=== PATIENT | male | born 1940 | race Caucasian/White ===

== ENCOUNTER 2016-07-22 12:04 | Day surgery (SDC) | payer MEDICARE ==
[2016-07-19 09:51] VITALS: BMI 23.5
[~2016-07-22 12:04] MED LIST: DEXAMETHASONE SOD PHOSPHATE 10 MG/ML 1 ML VIAL IV ONE; HYDROmorphone 1 MG/ML 1 ML SYRINGE IVP PRN; LACTATED RINGERS 1,000 ML IV SCH; LIDOCAINE 1% 20 ML VIAL (10MG/ML) FOR IV START INTRADERMA PRN; MIDAZOLAM 2 MG/2 ML VIAL IV PRN; ONDANSETRON 4 MG/2 ML VIAL IVP ONE; ceFAZolin 2 GM in SODIUM CHLORIDE 0.9% 100 ML IVPB ONE
[2016-07-22] MEDS ORDERED: ePHEDrine 50 MG/ML 1 ML AMP ONE (14:55)
[2016-07-22] MEDS ORDERED: LIDOCAINE 1% INJ 10MG/ML (20 ML MDV) ONE (14:55)
[2016-07-22] MEDS ORDERED: fentaNYL (PF) 50 MCG/ML 2 ML AMP ONE (14:55)
[2016-07-22] MEDS ORDERED: PROPOFOL 10 MG/ML 20 ML VIAL IV ONE (14:55)
[2016-07-22] MEDS ORDERED: MIDAZOLAM 2 MG/2 ML VIAL ONE (14:55)
--- NOTE | 2016-07-22 15:50 | XR ---
Fluoroscopy History: R wrist Fx internal fixation R wrist, 10sec fl time
[2016-07-22 15:59] VITALS: TEMP 97.8
[2016-07-22] MEDS ORDERED: HYDROmorphone 1 MG/ML 1 ML SYRINGE IVP ONE (16:10)
[2016-07-22 16:43] VITALS: RESP 16
[2016-07-22] MEDS ORDERED: HYDROcodone/APAP 5-325MG 1 EACH TAB PO ONE (17:09)
[2016-07-22 17:14] VITALS: PULSE 88
[2016-07-22 17:22] VITALS: BP 148/93
--- NOTE | 2016-07-22 17:59 | P.OP ---
Date of Procedure: 07/22/16 Procedure(s) Performed: 1. Right distal radius fracture closed reduction and percutaneous pinning 2. Short arm splint placement ANESTHESIA: paper carrier: Jamila Sweeney PA-C (assistance with: Patient positioning, reduction, fixation, splint placement) COMPLICATIONS: None ESTIMATED BLOOD LOSS: Less than 5 mL. DISPOSITION: To post-anesthesia care unit INDICATIONS: Mr. Lundy is a 76-year-old male who fell a couple weeks ago and sustained a displaced fracture of the distal radius. The fracture was initially reduced with good alignment, however has shifted out of place over the past week. We have discussed leaving this fracture alone and letting it heal with residual deformity which would probably be acceptable in terms of function, but considering the amount of dorsal tilt I feel that closed reduction percutaneous pinning would the optimal treatment for this situation. The patient wishes to proceed with surgery. I discussed the steps of the surgery as well as potential risks and complications as being inclusive of, but not limited to: Bleeding, infection, scarring, discomfort, blood vessel and/or nerve damage, need for further surgery, deformity, stiffness, tendon injury, pin site infection, osteomyelitis, loss of limb or life, and other risks. The patient is aware these risks and wishes to proceed with surgery. The consent form has been signed. PROCEDURE: After appropriate consent was obtained, the patient was taken to the operating room placed in the supine position. Anesthesia was initiated, and after confirmation of adequate anesthesia, the patient was carefully positioned. Care was taken to make sure that all pressure points were adequately padded. Prepping and draping were completed in the usual aseptic fashion using ChloraPrep. Timeout was called, confirming patient identity, side , procedure, and administration of antibiotics. The patient's fracture was reduced while being held by an him assistant. This was performed under C-arm guidance. Once an acceptable reduction had been obtained , 0.062 inch K wires were deployed from the distal fragment into the proximal fragment under C-arm guidance. 3 such pins were used: one in the radial styloid , one in the sigmoid notch fragment, and the last in the central dorsal rim of the distal radius. All 3 pins had far cortical purchase. Final C-arm images were taken and saved, showing satisfactory realignment of the distal radius fracture. Pins were bent and trimmed. Pin protectors were applied. A nonadherent dressing was applied over the pin sites and a well-padded well molded volar splint with the wrist in approximately 15 of flexion was applied. Patient tolerated the procedure well and taken to recovery room in stable condition. Counts were correct.
== END 2016-07-22 17:50 | disposition home or self-care (01) ==
LOC: OR 12:04
PROVIDERS: ATTEND Orthopaedic Surgery
DX: S52.571A Other intraarticular fracture of lower end of right radius, initial encounter for closed fracture (principal); W17.89XA Other fall from one level to another, initial encounter; Y93.89 Activity, other specified; S52.611D Displaced fracture of right ulna styloid process, subsequent encounter for closed fracture with routine healing; W17.89XD Other fall from one level to another, subsequent encounter; E78.5 Hyperlipidemia, unspecified; N40.0 Benign prostatic hyperplasia without lower urinary tract symptoms; Z79.891 Long term (current) use of opiate analgesic; Z79.899 Other long term (current) drug therapy; Z87.891 Personal history of nicotine dependence
CPT/HCPCS: 73100; 25606; C1713; J2250; J1100; J0690; J2405; J2001; J3010; J1170; J2704

== ENCOUNTER → 2017-03-31 | Outpatient (CLI) | payer MEDICARE ==
--- NOTE | 2017-03-31 09:27 | US ---
EXAMINATION TYPE: US renals and bladder DATE OF EXAM: 03/31/2017 COMPARISON: NONE CLINICAL HISTORY: R31.9 hematuria. Pt states microscopic hematuria EXAM MEASUREMENTS: Right Kidney: 10.1 x 5.1 x 5.1 cm Left Kidney: 9.7 x 5.2 x 4.6 cm Right Kidney: Cyst mid/medial= 1.0 x 0.9 x 1.1 cm/ No evidence of hydro Left Kidney: Appeared wnl Bladder: wnl Bilateral Jets seen: No There is no evidence for hydronephrosis at this point in time. No nephrolithiasis is seen. No quincy s are identified. The urinary bladder is anechoic. IMPRESSION: 1. No sonographic evidence of nephrolithiasis or hydronephrosis. 2. Right midpole 1.0 cm cyst.
--- NOTE | 2017-03-31 10:07 | US ---
EXAMINATION TYPE: US prostate transrectal DATE OF EXAM: 03/31/2017 COMPARISON: NONE CLINICAL HISTORY: R31.9 hematuria. Pt states microscopic hematuria, otherwise no other complaints at this time This examination was performed using the transrectal probe. EXAM MEASUREMENTS: Gland Size: 5.1 x 4.3 x 6.1 cm Volume: 69cc Predicted PSA: 8.3 Actual PSA (if available):Not available, unable to speak to office at time of exam Prostate enlarged/ Some calcifications within periphery at mid/right, otherwise no lesion appreciat ed within periphery at this time IMPRESSION: Heterogenous and enlarged prostate gland (volume of 69 cc) containing central zone and p eripheral zone calcifications. No discrete nodule identified.
== END | disposition home or self-care (01) ==
LOC: RADUSMAIN 08:05
PROVIDERS: ATTEND Internal Medicine
DX: N40.0 Benign prostatic hyperplasia without lower urinary tract symptoms (principal); N28.1 Cyst of kidney, acquired; N42.89 Other specified disorders of prostate
CPT/HCPCS: 76770; 76872

== ENCOUNTER 2017-04-07 07:30 | Inpatient (IN) | payer MEDICARE ==
[2017-03-28 10:01] VITALS: BMI 23.1
--- NOTE | 2017-04-06 14:52 | HP ---
HISTORY AND PHYSICAL REASON FOR ADMISSION: Surgery is scheduled for 04/07/2017 HISTORY OF PRESENT ILLNESS: Vinay Young is a 76-year-old patient seen with symptomatic left knee osteoarthritis. After treatment options were discussed, he elected to proceed with left total knee arthroplasty. Consent regarding the procedure was obtained. Medical clearance was provided by Dr. Nevarez. PAST MEDICAL HISTORY: Osteoarthritis, benign prostatic hypertrophy. PAST SURGICAL HISTORY: Right total knee arthroplasty. MEDICATIONS: Flomax. ALLERGIES: None reported. SOCIAL HISTORY: Patient denies current tobacco use. PHYSICAL EXAMINATION: Evaluation of the left knee range of motion is -2/3 to 120 degrees. Tenderness along the medial joint line. Positive medial Nubia's. Crepitus medial patellofemoral compartments with range of motion. Pain with patellofemoral compression. Ligaments stable. Hip rotation without pain. Distal neurovascular exam intact. RADIOGRAPHS: Left knee radiographs reveal severe medial and moderate patellofemoral compartment osteoarthritis. IMPRESSION: 1. Left knee osteoarthritis. 2. Benign prostatic hypertrophy. PLAN: Left total knee arthroplasty. Surgery scheduled for 04/07/2017. MMODL / IJN: [id number] /
[~2017-04-07 07:30] MED LIST changes: +ACETAMINOPHEN TAB 500 MG TAB PO ONE; +HYDROmorphone 0.5 MG/0.5 ML SYRINGE IVP PRN; -HYDROmorphone 1 MG/ML 1 ML SYRINGE IVP PRN; -LACTATED RINGERS 1,000 ML IV SCH; -LIDOCAINE 1% 20 ML VIAL (10MG/ML) FOR IV START INTRADERMA PRN; +MELOXICAM 7.5 MG TAB PO ONE; +TRANEXAMIC ACID 1,000 MG in SODIUM CHLORIDE 0.9% 50 ML IVPB ONE; -ceFAZolin 2 GM in SODIUM CHLORIDE 0.9% 100 ML IVPB ONE; +ceFAZolin IN SWFI 2 GM/20 ML SYRINGE IVP ONE
[2017-04-07] MEDS ORDERED: ROPIVACAINE 246.25 MG, EPINEPHrine 0.5 MG, KETOROLAC 30 MG, cloNIDine HCL/PF 80 MCG, WA... MISCELLANE ONE ×5 (09:25)
[2017-04-07] MEDS: LACTATED RINGERS 1,000 ML IV SCH (09:33)
[2017-04-07] MEDS ORDERED: SODIUM CHLORIDE 0.9% 100 ML BAG ONE (10:07)
[2017-04-07] MEDS ORDERED: PROPOFOL 10 MG/ML 20 ML VIAL IV ONE ×2 (10:07)
[2017-04-07] MEDS ORDERED: ePHEDrine SULFATE/0.9% NACL/PF 50 MG/5 ML SYRINGE IV ONE (10:07)
[2017-04-07] MEDS ORDERED: diphenhydrAMINE 50 MG/ML 1 ML VIAL ONE (10:07)
[2017-04-07] MEDS ORDERED: MIDAZOLAM 2 MG/2 ML VIAL ONE (10:07)
[2017-04-07] MEDS ORDERED: ceFAZolin 3,000 MG in SODIUM CHLORIDE 0.9% IRRIGATIO 3,000 ML IRRIGATION ONE (10:31)
[2017-04-07] MEDS ORDERED: LACTATED RINGERS 1,000 ML IV ONE (11:53)
[2017-04-07] MEDS ORDERED: HYDROmorphone 0.5 MG/0.5 ML SYRINGE IVP PRN ×3 (11:56)
[2017-04-07] MEDS ORDERED: hydrOXYzine PAMOATE 25 MG CAP PO PRN (11:56)
[2017-04-07] MEDS ORDERED: NALOXONE 0.4 MG/ML 1 ML VIAL IV PRN (11:56)
[2017-04-07] MEDS ORDERED: ONDANSETRON 4 MG/2 ML VIAL IVP PRN (11:56)
[2017-04-07] MEDS ORDERED: HYDROcodone/APAP 7.5-325MG 1 EACH TAB PO PRN ×2 (11:56)
--- NOTE | 2017-04-07 11:56 | P.OP ---
Date of Procedure: 04/07/17 Preoperative Diagnosis: Left knee osteoarthritis Postoperative Diagnosis: Left knee osteoarthritis Procedure(s) Performed: Left total knee arthroplasty Implants: 1. Asim persona size 9 left cruciate retaining cemented femur 2. Asim persona size left cemented tibia 3. Asim persona 13 mm medial congruent polyethylene tibial insert 4. Asim persona 38 mm all polyethylene cemented patella Anesthesia: regional (Adductor canal catheter), local, spinal Surgeon: Levy Dia Lining Vamper #1: Chris Bautista Estimated Blood Loss (ml): 50 Pathology: other ([place]) Condition: stable Disposition: PACU Indications for Procedure: 76-year-old patient seen with symptomatic left knee osteoarthritis. After treatment options were discussed, he elected to proceed with total knee arthroplasty. Operative Findings: See description of procedure Description of Procedure: Patient was taken to the operative suite after having an adductor canal catheter placed by the department of anesthesia. Patient underwent a final anesthetic by the department of anesthesia. Patient was given preoperative IV intake antibiotics and TXA. A well-padded tourniquet was placed about the left lower extremity. The lower extremity was then prepped and draped in the normal sterile orthopedic fashion. The extremity was elevated, a tourniquet was insufflated to 350. A standard anterior incision was made sharply through skin. Dissection was taken down through the subcutaneous soft tissues down to the extensor mechanism. A medial arthrotomy was performed, patella was everted and knee was flexed. There was advanced osteoarthritis noted. A proximal tibial cutting guide was positioned. Proximal tibial cut was made. A distal intramedullary femoral cutting guide was positioned, distal femoral cut made. We placed the appropriate sizing guide and selected the appropriate size. A distal 4-in-1 femoral cutting block was positioned, distal femoral cuts were made. We now placed a trial femoral component into position, along with an appropriate size tibial tray and insert. We now took the knee through range of motion and had full extension good flexion and good overall soft tissue balance noted. The patella was everted and a flush cut made with patellar quad tendon. We templated the patella, appropriate drill holes were made. An appropriate trial patella was positioned, knee was taken through full range of motion with the patella tracking very nicely. The trial patella was removed. Drill holes were made through the femoral component. All trial components were removed after marking off the appropriate rotation of the tibia. Retractors were now positioned along the proximal tibia. An appropriate keel punch was made with the appropriate size tibial guide. At this point appropriate size implants were chosen and opened. The joint was irrigated copiously with pulse lavage mechanical irrigation. The posterior capsule was infiltrated with local analgesic. We mixed antibiotic methylmethacrylate. Once the methyl methacrylate was ready, the tibial component was cemented into place removing any excess methylmethacrylate. The femoral component was cemented into place removing the removing any excess methylmethacrylate. We then inserted the appropriate size polyethylene tibial insert. We made sure that it was locked into position. We took the knee into full extension, and then back in a flexion making sure we had removed any excess methylmethacrylate. The patellar component was then cemented down and secured with clamp. Excess methylmethacrylate removed. We kept the knee in full extension, patellar clamp in position until methylmethacrylate had hardened. Once it had hardened the patellar clamp was removed. The knee was taken through full range of motion. The patella tracked nicely. There was good soft tissue balancing. The tourniquet was now released. Additional hemostasis was achieved via electrocautery. A second gram of TXA was given. The superficial soft tissues were infiltrated with local analgesic. The wound was irrigated with pulse lavage mechanical irrigation. The extensor mechanism was repaired with Vicryl. We checked the repair with range of motion and it was stable. The subcutaneous soft tissues were repaired with Vicryl in layers. The skin was approximated with pernio/Dermabond. Sterile dressings were applied followed by loose web roll and Romain bandage. The patient was transferred to a bed, and taken to recovery in stable and satisfactory condition. Rg PARKINSON assisted with the procedure.
--- NOTE | 2017-04-07 12:32 | XR ---
EXAMINATION TYPE: XR knee limited LT DATE OF EXAM: 04/07/2017 COMPARISON: NONE HISTORY: 76-year-old male evaluation for postoperative abnormality and alignment TECHNIQUE: 2 views FINDINGS: Images show placement of left total knee arthroplasty. Both distal femoral and proximal tibial compon ents of the prosthesis appear well seated without periprosthetic fracture. Anterior soft tissue swell ing, soft tissue air as well as intra-articular air related to recent operation. Alignment is grossly anatomic. IMPRESSION: Uncomplicated postoperative appearance left total knee arthroplasty.
[2017-04-07] MEDS ORDERED: ROPIVACAINE 1,100 MG, SODIUM CHLORIDE 0.9% 330 ML MISCELLANE PRN ×2 (12:41)
[2017-04-07] MEDS: traMADol 50 MG TAB PO SCH ×3 (12:44→21:59)
[2017-04-07] MEDS: ceFAZolin IN SWFI 2 GM/20 ML SYRINGE IVP SCH (17:37)
[2017-04-07] MEDS: SODIUM CHLORIDE 0.9% 1,000 ML IV SCH (17:42)
--- NOTE | 2017-04-07 20:11 | P.ONQ ---
Anesthesiology Proc Note - PNB - Peripheral Nerve Block Performed Left Adductor Canal Infusion Time Out Performed: Yes Procedure Start Time: 09:37 Procedure Stop Time: :52 Indication: Acute Post-Operative Pain, Requested by physician Sedation Type: Sedate with meaningful contact maintained Preparation: Sterile Prep Position: Supine Catheter: Indwelling Needle Types: On-Q Needle Size: 100mm (4") Needle Gauge: 20 Technique: Ultrasound Injectate: 0.5% Ropivacaine (see comment for volume) (ropi.5% 20cc) Blood Aspirated: No Pain Paresthesia on Injection Noted: No Resistance on Injection: Normal Events: Uneventful and Well Tolerated
[2017-04-07] MEDS: SENNOSIDES-DOCUSATE SODIUM 1 EACH TAB PO SCH (22:00)
[2017-04-07] MEDS: TAMSULOSIN 0.4 MG CAP.ER.24H PO SCH (22:00)
--- NOTE | 2017-04-07 22:38 | P.CONS ---
History of Present Illness - Reason for Consult Consult date: 04/07/17 Medical management and postoperative care - Chief Complaint Left total knee arthroplasty - History of Present Illness Patient is a 76-year-old pleasant male with a known history of GERD, osteoarthritis and BPH was admitted to the hospital for elective left total knee arthroplasty. Patient tolerated the procedure well. Currently pain is controlled with pain medications. Patient denied any complaints of chest pain or shortness of breath. No nausea vomiting or abdominal pain. No headache or dizziness or lightheadedness. Patient does take Flomax for BPH. Otherwise patient denied any new complaints. Review of Systems Constitutional: Patient denies any fever or chills . No generalized weakness or weight loss. Abdomen: Patient denied nausea vomiting and diarrhea and abdominal pain. Cardiovascular: Patient denies any chest pain or short of breath no palpitations. Respiratory: patient denied any cough is from production. No shortness of breath Neurologic: Patient denied any numbness or tingling headache. Musculoskeletal: Patient denies any complaints of joint swelling or deformity. Skin: Negative Psychiatric: Negative Endocrine: No heat or cold intolerance. No recent weight gain. Genitourinary: No dysuria or hematuria. All other 14 point ROS negative except the above Past Medical History Past Medical History: GERD/Reflux, Osteoarthritis (OA), Prostate Disorder Additional Past Medical History / Comment(s): Enlarged Prostate, "BLOOD IN THE URINE" History of Any Multi-Drug Resistant Organisms: None Reported Past Surgical History: Joint Replacement Additional Past Surgical History / Comment(s): Right knee replacement, esophageal ulcer surgery. Past Anesthesia/Blood Transfusion Reactions: No Reported Reaction Smoking Status: Former smoker - Past Family History Mother Family Medical History: Cancer Father Family Medical History: Cancer Additional Family Medical History / Comment(s): LUNG CANCER Brother(s) Family Medical History: Cancer Additional Family Medical History / Comment(s): LUNG CANCER Medications and Allergies Home Medications Medication Instructions Recorded Confirmed Type Tamsulosin HCl [Flomax] 0.4 mg PO HS 07/19/16 04/07/17 History Allergies Allergy/AdvReac Type Severity Reaction Status Date / Time No Known Allergies Allergy Verified 04/07/17 12:10 Physical Exam Vitals: Vital Signs Temp Pulse Pulse Resp BP BP Pulse Ox 04/07/17 12:22 72 16 135/67 100 04/07/17 12:07 97.1 F L 68 18 140/76 99 04/07/17 09:55 63 18 128/70 99 04/07/17 09:18 98.7 F 70 18 138/83 99 Intake and Output 04/06/17 04/07/17 04/07/17 22:59 06:59 14:59 Intake Total 1051 Output Total 50 Balance 1001 Intake: IV 1051 Output: Estimated Blood Loss 50 PHYSICAL EXAMINATION: Patient is lying in the bed comfortably, no acute distress, awake alert and oriented.. HEENT: Normocephalic. Neck is supple. Pupils reactive. Nostrils clear. Oral cavity is moist. Ears reveal no drainage. Neck reveals no JVD, carotid bruits, or thyromegaly. CHEST EXAMINATION: Trachea is central. Symmetrical expansion. Lung kurtz clear to auscultation and percussion. CARDIAC: Normal S1, S2 with no gallops. No murmurs ABDOMEN: Soft. Bowel sounds normal. No organomegaly. No abdominal bruits. Extremities: reveal no edema. No clubbing or cyanosis. Left knee surgical site bandaged. No leg swelling. Pulses palpable. Neurologically awake, alert, oriented x3 with well-coordinated movements. No focal deficits noted Skin: No rash or skin lesions. Psychiatric: Coperative. Nonsuicidal Musculoskeletal: No joint swelling or deformity. Normal range of motion. Assessment and Plan Assessment: Osteoarthritis status post left total knee arthroplasty on 04/07/2017 Benign prostatic hypertrophy GERD Osteoarthritis of multiple joints DVT prophylaxis Plan: Patient will be continued on pain management and bowel regimen. DVT prophylaxis. PT OT. Follow up H&H. Continue with Flomax and follow closely further recommendations based on the clinical course. Thank you for your consult. will continue to follow.
[2017-04-08] MEDS: ceFAZolin IN SWFI 2 GM/20 ML SYRINGE IVP SCH (01:14)
[2017-04-08 06:34] LABS: Basophils % (A) 0 %; Eosinophils # (A) 0.1 k/uL (0-0.7); Eosinophils % (A) 1 %; HCT 38.9 % (39.0-53.0); HGB 13.3 gm/dL (13.0-17.5); Lymphocytes # (A) 0.9 k/uL (1.0-4.8); Lymphocytes % (A) 9 %; MCH 29.4 pg (25.0-35.0); MCHC 34.2 g/dL (31.0-37.0); MCV 85.9 fL (80.0-100.0); Mean Platelet Volume 7.7; Monocytes # (A) 0.8 k/uL (0-1.0); Monocytes % (A) 8 %; Neutrophils # (A) 7.9 k/uL (1.3-7.7); Neutrophils % (A) 81 %; Platelet Count 181 k/uL (150-450); RBC 4.53 m/uL (4.30-5.90); RDW 13.4 % (11.5-15.5); WBC 9.8 k/uL (3.8-10.6)
--- NOTE | 2017-04-08 08:26 | P.PN ---
Progress Note - Text 04/08 648am 76-year-old male is status post total knee replacement by Dr. Dia. Patient seen and evaluated for pain control this morning. Patient has a On-Q pump for pain control, solution running at 8 mL an hour with a VAS of 4. Plan to continue On-Q pump infusion
[2017-04-08] MEDS: ENOXAPARIN 30 MG/0.3 ML SYRINGE SQ SCH ×2 (10:21→20:40)
[2017-04-08] MEDS: FAMOTIDINE 20 MG TAB PO SCH (10:22)
[2017-04-08] MEDS: MELOXICAM 7.5 MG TAB PO SCH (10:22)
--- NOTE | 2017-04-08 11:41 | P.PN ---
Subjective Progress Note Date: 04/08/17 Principal diagnosis: Status post left total knee arthroplasty Patient seen today resting in his hospital bed, he appears comfortable. He did have an episode of hypotension was brought on randomly, this has improved. She' s ambulated with therapy. He denies any chest pain, shortness of breath, fever chills. Objective - Vital Signs Vital signs: Vital Signs Temp 98.9 F 04/08/17 08:00 Pulse 60 04/08/17 08:10 Resp 16 04/08/17 08:00 BP 132/66 04/08/17 08:10 Pulse Ox 98 04/08/17 08:00 Intake & Output 04/07/17 04/08/17 04/08/17 18:59 06:59 18:59 Intake Total 1941 1880 240 Output Total 650 480 Balance 1291 1400 240 Weight 68.039 kg Intake: IV 1101 Intake, IV Titration 800 Amount Sodium Chloride 0.9% 1, 800 000 ml @ 50 mls/hr IV . Q20H [facility] Rx#:[id number] Oral 840 1080 240 Output: Urine 600 480 Straight 600 Estimated Blood Loss 50 Other: Voiding Method Toilet Urinal # Voids 4 - Exam Left lower extremity: Incision is clean, dry, and intact. The prineo tape is in good condition. There is minimal soft tissue swelling and ecchymosis surrounding the medial and lateral aspects of the incision. Calf is soft, no tenderness with palpation. Plantar flexion, dorsiflexion, EHL, FHL are intact. Sensory exam to light touch throughout the extremity is intact, dorsal pedis pulses 2+. - Labs CBC & Chem 7: 04/08/17 06:10 Labs: Abnormal Lab Results - Last 24 Hours (Table) 04/08/17 Range/Units 06:10 Hct 38.9 L (39.0-53.0) % Neutrophils # 7.9 H (1.3-7.7) k/uL Lymphocytes # 0.9 L (1.0-4.8) k/uL Assessment and Plan Plan: Assessment: 1. Postop day 1 status post left total knee arthroplasty Plan: 1. Pain control, continue use of oral medication 2. Continue work physical therapy and use of CPM 3. Encourage incentive spirometer 4. GI and DVT prophylaxis, continue use of Lovenox 5. Medical recommendations 6. Discharge planning: Patient will be discharged home likely in the next day or 2 Time with Patient: Less than 30
[2017-04-08] MEDS: LACTATED RINGERS 1,000 ML IV SCH (12:26)
[2017-04-08] MEDS: traMADol 50 MG TAB PO SCH ×4 (12:32→22:17)
[2017-04-08] MEDS: TAMSULOSIN 0.4 MG CAP.ER.24H PO SCH (20:40)
[2017-04-08] MEDS: SENNOSIDES-DOCUSATE SODIUM 1 EACH TAB PO SCH (20:40)
--- NOTE | 2017-04-08 22:43 | P.PN ---
Subjective Progress Note Date: 04/08/17 Principal diagnosis: Left total knee arthroplasty Patient is a 76-year-old pleasant male with a known history of GERD, osteoarthritis and BPH was admitted to the hospital for elective left total knee arthroplasty. Patient tolerated the procedure well. Currently pain is controlled with pain medications. Patient denied any complaints of chest pain or shortness of breath. No nausea vomiting or abdominal pain. No headache or dizziness or lightheadedness. Patient does take Flomax for BPH. Otherwise patient denied any new complaints. 04/08/2017 Patient denied any complaints of chest pain or shortness of breath. Patient was confused this morning was has improved at this time. No fever no chills. No headache or dizziness or lightheadedness. Otherwise no acute overnight issues. Participating in physical therapy. Current medications reviewed Objective - Vital Signs Vital signs: Vital Signs Temp 98.9 F 04/08/17 08:00 Pulse 60 04/08/17 08:10 Resp 16 04/08/17 08:00 BP 132/66 04/08/17 08:10 Pulse Ox 98 04/08/17 08:00 Intake & Output 04/07/17 04/08/17 04/08/17 18:59 06:59 18:59 Intake Total 1941 1880 240 Output Total 650 480 500 Balance 1291 1400 -260 Weight 68.039 kg Intake: IV 1101 Intake, IV Titration 800 Amount Sodium Chloride 0.9% 1, 800 000 ml @ 50 mls/hr IV . Q20H [facility] Rx#:[id number] Oral 840 1080 240 Output: Urine 600 480 500 Straight 600 500 Estimated Blood Loss 50 Other: Voiding Method Toilet Urinal # Voids 4 - Exam PHYSICAL EXAMINATION: Patient is lying in the bed comfortably, no acute distress, awake alert and oriented.. HEENT: Normocephalic. Neck is supple. Pupils reactive. Nostrils clear. Oral cavity is moist. Ears reveal no drainage. Neck reveals no JVD, carotid bruits, or thyromegaly. CHEST EXAMINATION: Trachea is central. Symmetrical expansion. Lung kurtz clear to auscultation and percussion. CARDIAC: Normal S1, S2 with no gallops. No murmurs ABDOMEN: Soft. Bowel sounds normal. No organomegaly. No abdominal bruits. Extremities: reveal no edema. No clubbing or cyanosis Neurologically awake, alert, oriented x3 with well-coordinated movements. No focal deficits noted Skin: No rash or skin lesions. Psychiatric: Coperative. Nonsuicidal Musculoskeletal: No joint swelling or deformity. Normal range of motion. - Labs CBC & Chem 7: 04/08/17 06:10 Labs: Abnormal Lab Results - Last 24 Hours (Table) 04/08/17 Range/Units 06:10 Hct 38.9 L (39.0-53.0) % Neutrophils # 7.9 H (1.3-7.7) k/uL Lymphocytes # 0.9 L (1.0-4.8) k/uL Assessment and Plan Assessment: Osteoarthritis status post left total knee arthroplasty on 04/07/2017 Benign prostatic hypertrophy GERD Osteoarthritis of multiple joints DVT prophylaxis Plan: Patient will be continued on pain management and bowel regimen. DVT prophylaxis. PT OT. Follow up H&H. Continue with Flomax and follow closely further recommendations based on the clinical course. Thank you for your consult. will continue to follow.
[2017-04-09] MEDS: ENOXAPARIN 30 MG/0.3 ML SYRINGE SQ SCH ×2 (08:19→21:00)
[2017-04-09] MEDS: MELOXICAM 7.5 MG TAB PO SCH (08:20)
[2017-04-09] MEDS: traMADol 50 MG TAB PO SCH ×4 (08:20→22:20)
[2017-04-09] MEDS: FAMOTIDINE 20 MG TAB PO SCH (08:20)
--- NOTE | 2017-04-09 11:33 | XR ---
EXAMINATION TYPE: XR chest 1V DATE OF EXAM: 04/09/2017 COMPARISON: NONE HISTORY: Rehabilitation placement TECHNIQUE: Single frontal view of the chest is obtained. FINDINGS: There is no focal air space opacity, pleural effusion, or pneumothorax seen. The cardiac silhouette size is upper limits of normal. The osseous structures are intact. Patchy linear areas o f atelectasis are seen within the left midlung and right lung base. IMPRESSION: Minimal subsegmental bibasilar atelectasis. No acute cardiopulmonary process.
--- NOTE | 2017-04-09 11:56 | P.PN ---
Subjective Progress Note Date: 04/09/17 Principal diagnosis: Status post left total knee arthroplasty Patient seen today resting in his hospital bed, he appears comfortable. Patient did have a catheter placed last night due to recent urinary retention, he appears more comfortable today. They're planning for discontinuation a catheter this afternoon. He denies any chest pain, shortness of breath, fever chills. Objective - Vital Signs Vital signs: Vital Signs Temp 98.2 F 04/09/17 07:00 Pulse 74 04/09/17 07:00 Resp 16 04/09/17 07:00 BP 113/64 04/09/17 07:00 Pulse Ox 96 04/09/17 07:00 Intake & Output 04/08/17 04/09/17 04/09/17 18:59 06:59 18:59 Intake Total 480 850 360 Output Total 600 1450 Balance -120 -600 360 Intake: Oral 480 850 360 Output: Urine 600 1450 Straight 500 Other: Voiding Method Indwelling Catheter # Voids 4 - Labs CBC & Chem 7: 04/08/17 06:10
--- NOTE | 2017-04-09 13:10 | P.CONS ---
History of Present Illness - Chief Complaint Walking difficulty - History of Present Illness I had the opportunity to see patient for inpatient rehab consultation with regard to walking difficulty. He was admitted to [facility] April 07 for elective left TKA performed by Dr. zarina Conley. Seen by Dr. Guzmán for medical. Chest x-ray demonstrates atelectasis. Good postoperative knee x-ray. PT reports minimal assistance for bed mobility, transfers, gait 110 feet with roller walker. OT prescribed. Previous functional history as elicited from patient: 76-year-old right-handed white male who is single lives and 2 floor home alone. Retired. Describes independent with own cooking, laundry, driving, standing shower and gait without device previously. History of smoking at the age of 16 only otherwise no tobacco and no alcohol. Regular doctors Dr. Dawson. Family history of cancer in brother father and mother. Review of Systems Review of systems: ENT: Denies sneezes or discharge. Eyes: Denies discharge or photophobia. Cardiac: Denies chest pain or palpitation. Pulmonary: Denies cough or shortness of breath. Gastrointestinal: Denies nausea, emesis, constipation, diarrhea. Genitourinary: Denies discharge or frequency. Musculoskeletal: Some minimal discomfort left leg or any. Neurologic: Denies motor or sensory change. Endocrine: Denies shakes or sweats. Oncology: Denies cancers. Dermatologic: Denies rash, itching, pruritus. ALLERGY/immunology: Denies sneezes, rashes. Past Medical History Past Medical History: GERD/Reflux, Osteoarthritis (OA), Prostate Disorder Additional Past Medical History / Comment(s): Enlarged Prostate, "BLOOD IN THE URINE" History of Any Multi-Drug Resistant Organisms: None Reported Past Surgical History: Joint Replacement Additional Past Surgical History / Comment(s): Right knee replacement, esophageal ulcer surgery. Past Anesthesia/Blood Transfusion Reactions: No Reported Reaction Smoking Status: Former smoker - Past Family History Mother Family Medical History: Cancer Father Family Medical History: Cancer Additional Family Medical History / Comment(s): LUNG CANCER Brother(s) Family Medical History: Cancer Additional Family Medical History / Comment(s): LUNG CANCER Medications and Allergies Home Medications Medication Instructions Recorded Confirmed Type Tamsulosin HCl [Flomax] 0.4 mg PO HS 07/19/16 04/07/17 History Allergies Allergy/AdvReac Type Severity Reaction Status Date / Time No Known Allergies Allergy Verified 04/07/17 12:10 Physical Exam Vitals: Vital Signs Temp Pulse Pulse Pulse Resp BP Pulse Ox 04/09/17 07:00 98.2 F 74 16 113/64 96 04/09/17 01:25 98.3 F 74 16 121/61 97 04/09/17 00:00 88 74 16 04/08/17 20:00 88 16 04/08/17 19:00 98.7 F 83 16 139/70 95 Intake and Output 04/08/17 04/09/17 04/09/17 22:59 06:59 14:59 Intake Total 200 650 360 Output Total 825 725 500 Balance -625 -75 -140 Intake: Oral 200 650 360 Output: Urine 825 725 500 Straight 100 Other: Voiding Method Indwelling Catheter Indwelling Catheter Indwelling Catheter # Voids 4 Skin: Atrophic, intact. General: Medium build and comfortable appearance. Head: Normocephalic, atraumatic. Eyes: Symmetric. Pupils equal round. Ears: Symmetric. Hearing appears diminished bilateral. Mouth: Clear. Neck: Supple. Carotid without bruit. Cardiac: Regular rate and rhythm. Lungs: Clear anteriorly and posteriorly. Abdomen: Soft active nontender. Extremities: Normal tone. Neurological: Mental status: Alert, cooperative, pleasant. Cranial nerves: Symmetric facial tone and trapezius. Motor: Active movement all 4 limbs but with some decrease or giveaway weakness and left leg. Sensation: Intact throughout. DTRs: Symmetric and equal throughout. Mobility: Patient in Marily chair with feet up and ready to eat lunch so did not. Results CBC & Chem 7: 04/08/17 06:10 Chest x-ray: report reviewed (Demonstrates atelectasis only.) Assessment and Plan (1) Osteoarthritis of left knee Current Visit: Yes Status: Acute Code(s): M17.12 - UNILATERAL PRIMARY OSTEOARTHRITIS, LEFT KNEE SNOMED Code(s): 244725778548411 Plan: Fashion: 1. Walking difficulty. 2. Osteoarthritis status post left TKA 3. Reflux. 4. Prostate disease. Comments and plan: PT ongoingly safety concerns. OT prescribed. Insurance will require OT notes prior to inpatient rehab. Patient has been informed of possible rehab admission tomorrow.
[2017-04-09] MEDS: SODIUM CHLORIDE 0.9% 1,000 ML IV SCH ×3 (17:09→23:07)
[2017-04-09] MEDS: SENNOSIDES-DOCUSATE SODIUM 1 EACH TAB PO SCH (21:00)
[2017-04-09] MEDS: TAMSULOSIN 0.4 MG CAP.ER.24H PO SCH (21:00)
--- NOTE | 2017-04-09 21:28 | P.GSCN ---
History of Present Illness Consult date: 04/09/17 Reason for Consult: post op urine retention History of present illness: This 76 yo male underwent a left knee arthroplasty HE had post op retention He is now voiding somewhat He had pre op usage of flomax for bph. He has a known history of alarger prostate.HE was voiding relativley well preoperatively Review of Systems - Genitourinary Reports as per HPI - Musculoskeletal Reports as per HPI Past Medical History Past Medical History: GERD/Reflux, Osteoarthritis (OA), Prostate Disorder Additional Past Medical History / Comment(s): Enlarged Prostate, "BLOOD IN THE URINE" History of Any Multi-Drug Resistant Organisms: None Reported Past Surgical History: Joint Replacement Additional Past Surgical History / Comment(s): Right knee replacement, esophageal ulcer surgery. Past Anesthesia/Blood Transfusion Reactions: No Reported Reaction Smoking Status: Former smoker - Past Family History Mother Family Medical History: Cancer Father Family Medical History: Cancer Additional Family Medical History / Comment(s): LUNG CANCER Brother(s) Family Medical History: Cancer Additional Family Medical History / Comment(s): LUNG CANCER Medications and Allergies Home Medications Medication Instructions Recorded Confirmed Type Tamsulosin HCl [Flomax] 0.4 mg PO HS 07/19/16 04/07/17 History Allergies Allergy/AdvReac Type Severity Reaction Status Date / Time No Known Allergies Allergy Verified 04/07/17 12:10 Surgical - Exam Vital Signs Temp Pulse Resp BP Pulse Ox 98.7 F 70 18 138/83 99 04/07/17 09:18 04/07/17 09:18 04/07/17 09:18 04/07/17 09:18 04/07/17 09:18 - General well developed, well nourished, no distress - Eyes PERRL - ENT no hearing loss - Neck trachea midline - Respiratory normal expansion, normal respiratory effort - Cardiovascular Rhythm: regular - Abdomen Abdomen: soft, non tender - Genitourinary normal penis with no external lesions, testicles present - Neurologic normal sensation - Musculoskeletal normal posture - Psychiatric oriented to time, oriented to person, oriented to place, speech is normal, memory intact Results - Labs 04/08/17 06:10 Assessment and Plan Assessment: Impression : Post op retention, pre operative bph Rec: We will observe the patients post op voiding I have ordered a pvr If the residuals are ess than 300ml the cath will stay out The patient will c/w his flomax
[2017-04-10 06:43] LABS: Basophils % (A) 0 %; Eosinophils # (A) 0.2 k/uL (0-0.7); Eosinophils % (A) 2 %; HCT 38.7 % (39.0-53.0); HGB 13.3 gm/dL (13.0-17.5); Lymphocytes # (A) 0.9 k/uL (1.0-4.8); Lymphocytes % (A) 12 %; MCH 29.8 pg (25.0-35.0); MCHC 34.3 g/dL (31.0-37.0); MCV 86.6 fL (80.0-100.0); Mean Platelet Volume 7.3; Monocytes # (A) 0.8 k/uL (0-1.0); Monocytes % (A) 10 %; Neutrophils # (A) 5.9 k/uL (1.3-7.7); Neutrophils % (A) 74 %; Platelet Count 181 k/uL (150-450); RBC 4.47 m/uL (4.30-5.90); RDW 12.6 % (11.5-15.5); WBC 7.9 k/uL (3.8-10.6)
[2017-04-10] MEDS: ENOXAPARIN 30 MG/0.3 ML SYRINGE SQ SCH ×2 (08:01→21:33)
[2017-04-10] MEDS: MELOXICAM 7.5 MG TAB PO SCH (08:02)
[2017-04-10] MEDS: FAMOTIDINE 20 MG TAB PO SCH (08:02)
[2017-04-10] MEDS: traMADol 50 MG TAB PO SCH ×4 (08:03→21:33)
--- NOTE | 2017-04-10 13:01 | P.PN ---
Subjective Progress Note Date: 04/10/17 Principal diagnosis: Status post left total knee arthroplasty Patient seen today resting in his hospital bed, he appears comfortable. Catheter remains in place, patient has had continuing difficulties with urinating. He denies any chest pain, shortness of breath, fever chills. Objective - Vital Signs Vital signs: Vital Signs Temp 98.2 F 04/10/17 02:39 Pulse 69 04/10/17 02:39 Resp 16 04/10/17 02:39 BP 123/62 04/10/17 02:39 Pulse Ox 96 04/10/17 02:39 Intake & Output 04/09/17 04/10/17 04/10/17 18:59 06:59 18:59 Intake Total 360 500 240 Output Total 651 925 Balance -291 -425 240 Intake: Oral 360 500 240 Output: Urine 650 925 Straight 100 Post Void Residual 0 Stool 1 Other: Voiding Method Indwelling Catheter - Exam Left lower extremity: Incision is clean, dry, and intact. The prineo tape is in good condition. There is minimal soft tissue swelling and ecchymosis surrounding the medial and lateral aspects of the incision. Calf is soft, no tenderness with palpation. Plantar flexion, dorsiflexion, EHL, FHL are intact. Sensory exam to light touch throughout the extremity is intact, dorsal pedis pulses 2+. - Labs CBC & Chem 7: 04/10/17 06:18 Labs: Abnormal Lab Results - Last 24 Hours (Table) 04/10/17 Range/Units 06:18 Hct 38.7 L (39.0-53.0) % Lymphocytes # 0.9 L (1.0-4.8) k/uL Assessment and Plan Plan: Assessment: 1. Postop day #3 status post left total knee arthroplasty Plan: 1. Pain control, continue use of oral medication 2. Continue work physical therapy and use of CPM 3. Encourage incentive spirometer 4. GI and DVT prophylaxis, plan for discharge on aspirin 325 mg twice a day 5. Medical recommendations 6. Discharge planning: Plan for discharge to rehab today, awaiting recommendations from urology for continuing versus discontinuing of catheter Time with Patient: Less than 30
--- NOTE | 2017-04-10 13:02 | P.DS ---
Providers Date of admission: 04/07/17 08:49 Expected date of discharge: 04/10/17 Attending physician: Levy Dia Consults: 04/07/17 11:56 Consult Physician Routine Consulting Provider: Cheri Arias Consult Reason/Comments: Medical management Do you want consulting provider notified?: Yes Primary care physician: Roque Julien [facility] Course: Date of admission: 04/07/2017 Date of discharge: 04/10/2017 Admission diagnosis: Status post left total knee arthroplasty Discharge diagnosis: Same Attending physician: Dr. Dia Surgical procedures: Left total knee arthroplasty Brief history: Patient is a 76-year-old male with a history of progressive primary left knee osteoarthritis. At this point patient has failed conservative treatment measures and has opted to proceed with a elective left total knee arthroplasty. Hospital course: Details of patient's surgery can be found in operative report. Patient tolerated the procedure well and was subsequently transported to orthopedic floor. Patient's orthopeidc and medical care was provided daily. Patient had daily laboratory tests performed for evaluation of overall blood counts. Patient had daily physical therapy to include strengthening range of motion as well as education with walker ambulation. Patient had daily CPM usage as part of their physical therapy program. Patient was treated with Lovenox for their postoperative DVT prophylaxis during their inpatient stay. Patient was noted to have a relatively uneventful postoperative course. Patient did have some issues with voiding and urinary retention, urinary cath was placed. A consult was also placed for urology. Patient reported satisfactory pain control with oral pain medications by postoperative day 0. Patient showed satisfactory progress with physical therapy. Patient moved steadily through the program and had no difficulty meeting the goals by postoperative day 3. Given patient's otherwise satisfactory course and having met physical therapy goals, plan is to discharge patient rehab on postoperative day 3. Discharge condition/disposition: Patient will be discharged to rehab in stable condition. Discharge medications: Instructions are given on resumption of patient's normal daily medications per primary care recommendation, in addition patient will be prescribed [place] 5 mg/325 mg, Colace 100 mg, aspirin 325 mg, Pepcid 20 mg . Discharge instructions: 1. Wound care and infection precautions, keep incision dry and covered while showering, no lotions, creams, moisturizers. No soaking, tubs, pools, hottubs. Do not scrub over the incision. 2. Weight-bear as tolerated with walker / cane until follow-up. 3. Ice and elevate when necessary. Do not exceed 20 minutes per hour with ice pack. 4. Utilize compression sleeve until seen at first follow up appointment. 5. Visiting nursing care. 6. Home physical therapy including home CPM. 7. Pain meds and anticoagulants per prescription. 8. Pain medication has potential to cause constipation. Increase oral fluid and fiber intake. Contact primary care provider if you have not had a bowel movement within 48 hours after discharge 9. No anti-inflammatory medication until discussed at first post operative visit, this including Motrin, Aleve, Mobic, Diclofenac. 10. Follow up in office at 2 weeks postop with Rg Bautista PA-C 11. Follow up with your primary care doctor 7-10 days after discharge. 12. Contact [facility] with any questions, . Procedures: Left total knee arthroplasty Patient Condition at Discharge: Good Plan - Discharge Summary Discharge Rx Participant: Yes New Discharge Prescriptions: New Aspirin 325 mg PO BID #60 tab Docusate [Colace] 100 mg PO DAILY #30 capsule Famotidine [Pepcid] 20 mg PO DAILY #30 tablet Hydrocodone/Acetaminophen [[place] 5-325] 1 each PO Q6HR PRN #40 tab PRN Reason: Pain No Action Tamsulosin HCl [Flomax] 0.4 mg PO HS Discharge Medication List Tamsulosin HCl [Flomax] 0.4 mg PO HS 07/19/16 [History] Aspirin 325 mg PO BID #60 tab 04/10/17 [Rx] Docusate [Colace] 100 mg PO DAILY #30 capsule 04/10/17 [Rx] Famotidine [Pepcid] 20 mg PO DAILY #30 tablet 04/10/17 [Rx] Hydrocodone/Acetaminophen [[place] 5-325] 1 each PO Q6HR PRN #40 tab 04/10/17 [Rx] Follow up Appointment(s)/Referral(s): Chris Bautista PAC [PHYSICIAN SECURITY AND COMPLIANCE PROJECT MANAGER] - 04/25/17 2:30 pm Activity/Diet/Wound Care/Special Instructions: Orthopedic Discharge Instructions: 1. Wound care and infection precautions, keep incision dry and covered while showering, no lotions, creams, moisturizers. No soaking, pools, hot tubs. Do not scrub over incision. 2. Weight-bear as tolerated with walker / cane until follow-up. 3. Ice and elevate when necessary. Do not exceed 20 minutes per hour with ice pack. 4. Utilize compression sleeve until seen at first follow up appointment. 5. Visiting nursing care. 6. Home physical therapy including home CPM. 7. Pain meds and anticoagulants per prescription. 8. Pain medication has potential to cause constipation. Increase oral fluid and fiber intake. Contact primary care provider if you have not had a bowel movement within 48 hours after discharge. 9. No anti-inflammatory medication until discussed at first post operative visit, this including Motrin, Aleve, Mobic, Diclofenac. 10. Follow up in office at 2 weeks postop with Rg Bautista PA-C 11. Follow up with your primary care doctor 7-10 days after discharge. 12. Contact [facility] with any questions, . Discharge Disposition: TRANSFER TO SNF/ECF
--- NOTE | 2017-04-10 21:01 | P.PN ---
Subjective Progress Note Date: 04/09/17 Principal diagnosis: Left total knee arthroplasty Patient is a 76-year-old pleasant male with a known history of GERD, osteoarthritis and BPH was admitted to the hospital for elective left total knee arthroplasty. Patient tolerated the procedure well. Currently pain is controlled with pain medications. Patient denied any complaints of chest pain or shortness of breath. No nausea vomiting or abdominal pain. No headache or dizziness or lightheadedness. Patient does take Flomax for BPH. Otherwise patient denied any new complaints. 04/08/2017 Patient denied any complaints of chest pain or shortness of breath. Patient was confused this morning was has improved at this time. No fever no chills. No headache or dizziness or lightheadedness. Otherwise no acute overnight issues. Participating in physical therapy. 04/09/2017 Patient denied any complaints of knee pain. No chest pain no shortness of breath. Patient did have urinary retention and was placed on Hawk catheter which has been removed. Post void residual was ordered as well as urology has been consulted. Otherwise no fever no chills. No nausea vomiting or abdominal pain. No diarrhea. No acute overnight issues otherwise. Current medications reviewed Objective - Vital Signs Vital signs: Vital Signs Temp 98.2 F 04/09/17 07:00 Pulse 74 04/09/17 07:00 Resp 16 04/09/17 07:00 BP 113/64 04/09/17 07:00 Pulse Ox 96 04/09/17 07:00 Intake & Output 04/08/17 04/09/17 04/09/17 18:59 06:59 18:59 Intake Total 480 850 360 Output Total 600 1450 500 Balance -120 -600 -140 Intake: Oral 480 850 360 Output: Urine 600 1450 500 Straight 500 100 Other: Voiding Method Indwelling Catheter Indwelling Catheter # Voids 4 - Exam PHYSICAL EXAMINATION: Patient is lying in the bed comfortably, no acute distress, awake alert and oriented.. HEENT: Normocephalic. Neck is supple. Pupils reactive. Nostrils clear. Oral cavity is moist. Ears reveal no drainage. Neck reveals no JVD, carotid bruits, or thyromegaly. CHEST EXAMINATION: Trachea is central. Symmetrical expansion. Lung kurtz clear to auscultation and percussion. CARDIAC: Normal S1, S2 with no gallops. No murmurs ABDOMEN: Soft. Bowel sounds normal. No organomegaly. No abdominal bruits. Extremities: reveal no edema. No clubbing or cyanosis Neurologically awake, alert, oriented x3 with well-coordinated movements. No focal deficits noted Skin: No rash or skin lesions. Psychiatric: Coperative. Nonsuicidal Musculoskeletal: No joint swelling or deformity. Normal range of motion. - Labs CBC & Chem 7: 04/10/17 06:18 Assessment and Plan Assessment: Osteoarthritis status post left total knee arthroplasty on 04/07/2017 Acute urinary retention likely due to narcotic pain medications along with underlying BPH Benign prostatic hypertrophy GERD Osteoarthritis of multiple joints DVT prophylaxis Plan: Hawk catheter has been discontinued at this time and urology was consulted Patient will be continued on pain management and bowel regimen. DVT prophylaxis. PT OT. Follow up H&H. Continue with Flomax and follow closely further recommendations based on the clinical course. Thank you for your consult. will continue to follow.
--- NOTE | 2017-04-10 21:21 | P.PN ---
Subjective Progress Note Date: 04/10/17 Principal diagnosis: Left total knee arthroplasty Patient is a 76-year-old pleasant male with a known history of GERD, osteoarthritis and BPH was admitted to the hospital for elective left total knee arthroplasty. Patient tolerated the procedure well. Currently pain is controlled with pain medications. Patient denied any complaints of chest pain or shortness of breath. No nausea vomiting or abdominal pain. No headache or dizziness or lightheadedness. Patient does take Flomax for BPH. Otherwise patient denied any new complaints. 04/08/2017 Patient denied any complaints of chest pain or shortness of breath. Patient was confused this morning was has improved at this time. No fever no chills. No headache or dizziness or lightheadedness. Otherwise no acute overnight issues. Participating in physical therapy. 04/09/2017 Patient denied any complaints of knee pain. No chest pain no shortness of breath. Patient did have urinary retention and was placed on Hawk catheter which has been removed. Post void residual was ordered as well as urology has been consulted. Otherwise no fever no chills. No nausea vomiting or abdominal pain. No diarrhea. No acute overnight issues otherwise. 04/10/2017 Patient denied any chest pain or shortness of breath. Patient was seen by urology. Post void residual showed greater than 350 mL. Patient was placed back on Hawk catheter. Patient will need to follow with urology for surgery. Otherwise no fever no chills. Tolerating oral diet. No other acute overnight issues issues. Current medications reviewed Objective - Vital Signs Vital signs: Vital Signs Temp 98.3 F 04/10/17 14:15 Pulse 80 04/10/17 14:15 Resp 16 04/10/17 14:15 BP 125/75 04/10/17 14:15 Pulse Ox 98 04/10/17 14:15 Intake & Output 04/10/17 04/10/17 04/11/17 06:59 18:59 06:59 Intake Total 500 240 Output Total 925 Balance -425 240 Intake: Oral 500 240 Output: Urine 925 Post Void Residual 0 Other: Voiding Method Indwelling Catheter # Voids 1 - Exam PHYSICAL EXAMINATION: Patient is lying in the bed comfortably, no acute distress, awake alert and oriented.. HEENT: Normocephalic. Neck is supple. Pupils reactive. Nostrils clear. Oral cavity is moist. Ears reveal no drainage. Neck reveals no JVD, carotid bruits, or thyromegaly. CHEST EXAMINATION: Trachea is central. Symmetrical expansion. Lung kurtz clear to auscultation and percussion. CARDIAC: Normal S1, S2 with no gallops. No murmurs ABDOMEN: Soft. Bowel sounds normal. No organomegaly. No abdominal bruits. Extremities: reveal no edema. No clubbing or cyanosis Neurologically awake, alert, oriented x3 with well-coordinated movements. No focal deficits noted Skin: No rash or skin lesions. Psychiatric: Coperative. Nonsuicidal Musculoskeletal: No joint swelling or deformity. Normal range of motion. - Labs CBC & Chem 7: 04/10/17 06:18 Labs: Abnormal Lab Results - Last 24 Hours (Table) 04/10/17 Range/Units 06:18 Hct 38.7 L (39.0-53.0) % Lymphocytes # 0.9 L (1.0-4.8) k/uL Assessment and Plan Assessment: Osteoarthritis status post left total knee arthroplasty on 04/07/2017 Acute urinary retention likely due to narcotic pain medications along with underlying BPH Benign prostatic hypertrophy GERD Osteoarthritis of multiple joints DVT prophylaxis Plan: Patient was placed back on Hawk catheter and is to follow with urology in the clinic. Patient will be continued on pain management and bowel regimen. DVT prophylaxis. PT OT. Follow up H&H. Continue with Flomax and follow closely further recommendations based on the clinical course. Patient is being transferred to rehab. Thank you for your consult. will continue to follow.
[2017-04-10] MEDS: TAMSULOSIN 0.4 MG CAP.ER.24H PO SCH (21:33)
[2017-04-10] MEDS: SENNOSIDES-DOCUSATE SODIUM 1 EACH TAB PO SCH (21:33)
[2017-04-10] MEDS: SODIUM CHLORIDE 0.9% 1,000 ML IV SCH (21:34)
[2017-04-11] MEDS: ENOXAPARIN 30 MG/0.3 ML SYRINGE SQ SCH ×2 (08:38→21:10)
[2017-04-11] MEDS: MELOXICAM 7.5 MG TAB PO SCH (08:38)
[2017-04-11] MEDS: FAMOTIDINE 20 MG TAB PO SCH (08:38)
[2017-04-11] MEDS: traMADol 50 MG TAB PO SCH ×4 (08:39→21:09)
--- NOTE | 2017-04-11 15:44 | P.PN ---
Subjective Progress Note Date: 04/11/17 Principal diagnosis: Status post left total knee arthroplasty Patient seen today resting in his hospital bed, he appears comfortable. Catheter remains in place, he his being followed by urology. He denies any chest pain, shortness of breath, fever chills. Objective - Vital Signs Vital signs: Vital Signs Temp 98.0 F 04/11/17 14:34 Pulse 68 04/11/17 14:34 Resp 16 04/11/17 14:34 BP 114/64 04/11/17 14:34 Pulse Ox 99 04/11/17 14:34 Intake & Output 04/10/17 04/11/17 04/11/17 18:59 06:59 18:59 Intake Total 240 540 Balance 240 540 Intake: Intake, IV Titration 0 Amount Sodium Chloride 0.9% 1, 0 000 ml @ 50 mls/hr IV . Q20H [facility] Rx#:[id number] Oral 240 540 Other: Voiding Method Indwelling Catheter Indwelling Catheter # Voids 1 - Exam Left lower extremity: Incision is clean, dry, and intact. The prineo tape is in good condition. There is minimal soft tissue swelling and ecchymosis surrounding the medial and lateral aspects of the incision. Calf is soft, no tenderness with palpation. Plantar flexion, dorsiflexion, EHL, FHL are intact. Sensory exam to light touch throughout the extremity is intact, dorsal pedis pulses 2+. - Labs CBC & Chem 7: 04/10/17 06:18 Assessment and Plan Plan: Assessment: 1. Postop day #4 status post left total knee arthroplasty Plan: 1. Pain control, continue use of oral medication 2. Continue work physical therapy and use of CPM 3. Encourage incentive spirometer 4. GI and DVT prophylaxis, plan for discharge on aspirin 325 mg twice a day 5. Medical recommendations 6. Discharge planning: Plan for discharge to rehab, awaiting insurance approval Time with Patient: Less than 30
[2017-04-11] MEDS: SODIUM CHLORIDE 0.9% 1,000 ML IV SCH (17:42)
[2017-04-11] MEDS: TAMSULOSIN 0.4 MG CAP.ER.24H PO SCH (21:09)
[2017-04-11] MEDS: SENNOSIDES-DOCUSATE SODIUM 1 EACH TAB PO SCH (21:10)
--- NOTE | 2017-04-11 23:20 | P.PN ---
Subjective Progress Note Date: 04/11/17 Principal diagnosis: Left total knee arthroplasty Patient is a 76-year-old pleasant male with a known history of GERD, osteoarthritis and BPH was admitted to the hospital for elective left total knee arthroplasty. Patient tolerated the procedure well. Currently pain is controlled with pain medications. Patient denied any complaints of chest pain or shortness of breath. No nausea vomiting or abdominal pain. No headache or dizziness or lightheadedness. Patient does take Flomax for BPH. Otherwise patient denied any new complaints. 04/08/2017 Patient denied any complaints of chest pain or shortness of breath. Patient was confused this morning was has improved at this time. No fever no chills. No headache or dizziness or lightheadedness. Otherwise no acute overnight issues. Participating in physical therapy. 04/09/2017 Patient denied any complaints of knee pain. No chest pain no shortness of breath. Patient did have urinary retention and was placed on Hawk catheter which has been removed. Post void residual was ordered as well as urology has been consulted. Otherwise no fever no chills. No nausea vomiting or abdominal pain. No diarrhea. No acute overnight issues otherwise. 04/10/2017 Patient denied any chest pain or shortness of breath. Patient was seen by urology. Post void residual showed greater than 350 mL. Patient was placed back on Hawk catheter. Patient will need to follow with urology for surgery. Otherwise no fever no chills. Tolerating oral diet. No other acute overnight issues issues. 04/11/2017 Patient denied any new complaints today. No chest pain no shortness of breath. No complaints of abdominal pain or nausea vomiting. Continue to be on Hawk catheter. Awaiting transfer to rehab Current medications reviewed Objective - Vital Signs Vital signs: Vital Signs Temp 98.1 F 04/11/17 01:49 Pulse 66 04/11/17 01:49 Resp 16 04/11/17 01:49 BP 115/63 04/11/17 01:49 Pulse Ox 98 04/11/17 01:49 Intake & Output 04/10/17 04/11/17 04/11/17 18:59 06:59 18:59 Intake Total 240 540 Balance 240 540 Intake: Intake, IV Titration 0 Amount Sodium Chloride 0.9% 1, 0 000 ml @ 50 mls/hr IV . Q20H [facility] Rx#:[id number] Oral 240 540 Other: Voiding Method Indwelling Catheter Indwelling Catheter # Voids 1 - Exam PHYSICAL EXAMINATION: Patient is lying in the bed comfortably, no acute distress, awake alert and oriented.. HEENT: Normocephalic. Neck is supple. Pupils reactive. Nostrils clear. Oral cavity is moist. Ears reveal no drainage. Neck reveals no JVD, carotid bruits, or thyromegaly. CHEST EXAMINATION: Trachea is central. Symmetrical expansion. Lung kurtz clear to auscultation and percussion. CARDIAC: Normal S1, S2 with no gallops. No murmurs ABDOMEN: Soft. Bowel sounds normal. No organomegaly. No abdominal bruits. Extremities: reveal no edema. No clubbing or cyanosis Neurologically awake, alert, oriented x3 with well-coordinated movements. No focal deficits noted Skin: No rash or skin lesions. Psychiatric: Coperative. Nonsuicidal Musculoskeletal: No joint swelling or deformity. Normal range of motion. - Labs CBC & Chem 7: 04/10/17 06:18 Assessment and Plan Assessment: Osteoarthritis status post left total knee arthroplasty on 04/07/2017 Acute urinary retention likely due to narcotic pain medications along with underlying BPH. Continue to be on indwelling Hawk catheter Benign prostatic hypertrophy GERD Osteoarthritis of multiple joints DVT prophylaxis Plan: Patient was placed back on Hawk catheter and is to follow with urology in the clinic. Patient will be continued on pain management and bowel regimen. DVT prophylaxis. PT OT. Follow up H&H. Continue with Flomax and follow closely further recommendations based on the clinical course. Patient is being transferred to rehab. Thank you for your consult. will continue to follow.
[2017-04-12] MEDS: ENOXAPARIN 30 MG/0.3 ML SYRINGE SQ SCH ×2 (08:41→20:57)
[2017-04-12] MEDS: traMADol 50 MG TAB PO SCH ×4 (08:41→20:56)
[2017-04-12] MEDS: FAMOTIDINE 20 MG TAB PO SCH (08:42)
[2017-04-12] MEDS: MELOXICAM 7.5 MG TAB PO SCH (08:42)
[2017-04-12] MEDS: SODIUM CHLORIDE 0.9% 1,000 ML IV SCH (09:29)
--- NOTE | 2017-04-12 13:21 | P.PN ---
Progress Note - Text Progress Note Date: 04/12/17 Patient seen sitting up eating lunch and appears comfortable. Patient does have a catheter in place. Patient reports some aching in the left knee. Patient denies any other current complaints. Left knee examIncision stable. Range of motion is -30-90 without significant pain. Homans and Ta are negative. Distal neurovascular exam is intact. Impression: Status post left total knee arthroplasty Plan: Medical management DVT prophylaxis Physical therapy Await rehab transfer
[2017-04-12] MEDS: TAMSULOSIN 0.4 MG CAP.ER.24H PO SCH (20:57)
[2017-04-12] MEDS: SENNOSIDES-DOCUSATE SODIUM 1 EACH TAB PO SCH (21:04)
[2017-04-13] MEDS: SODIUM CHLORIDE 0.9% 1,000 ML IV SCH (09:00)
[2017-04-13] MEDS: ENOXAPARIN 30 MG/0.3 ML SYRINGE SQ SCH ×2 (09:07→20:56)
[2017-04-13] MEDS: MELOXICAM 7.5 MG TAB PO SCH (09:07)
[2017-04-13] MEDS: FAMOTIDINE 20 MG TAB PO SCH (09:08)
[2017-04-13] MEDS: traMADol 50 MG TAB PO SCH ×4 (09:08→20:55)
--- NOTE | 2017-04-13 10:47 | P.PN ---
Subjective Progress Note Date: 04/13/17 Principal diagnosis: Status post left total knee arthroplasty Patient seen today resting in his hospital bed, he appears comfortable. Catheter remains in place, he his being followed by urology. He denies any chest pain, shortness of breath, fever chills. Objective - Vital Signs Vital signs: Vital Signs Temp 98.3 F 04/13/17 07:00 Pulse 68 04/13/17 07:00 Resp 16 04/13/17 07:00 BP 128/76 04/13/17 07:00 Pulse Ox 97 04/13/17 07:00 Intake & Output 04/12/17 04/13/17 04/13/17 18:59 06:59 18:59 Intake Total 740 Output Total 475 1350 Balance 265 -1350 Intake: Oral 740 Output: Urine 475 1350 Straight 475 Other: Voiding Method Indwelling Catheter Indwelling Catheter Indwelling Catheter - Exam Left lower extremity: Incision is clean, dry, and intact. The prineo tape is in good condition. There is minimal soft tissue swelling and ecchymosis surrounding the medial and lateral aspects of the incision. Calf is soft, no tenderness with palpation. Plantar flexion, dorsiflexion, EHL, FHL are intact. Sensory exam to light touch throughout the extremity is intact, dorsal pedis pulses 2+. - Labs CBC & Chem 7: 04/10/17 06:18 Assessment and Plan Plan: Assessment: 1. Postop day #6 status post left total knee arthroplasty Plan: 1. Pain control, continue use of oral medication 2. Continue work physical therapy and use of CPM 3. Encourage incentive spirometer 4. GI and DVT prophylaxis, plan for discharge on aspirin 325 mg twice a day 5. Medical recommendations 6. Discharge planning: Plan for discharge to rehab, awaiting insurance approval Time with Patient: Less than 30
[2017-04-13] MEDS: TAMSULOSIN 0.4 MG CAP.ER.24H PO SCH (20:56)
[2017-04-13] MEDS: SENNOSIDES-DOCUSATE SODIUM 1 EACH TAB PO SCH (20:57)
--- NOTE | 2017-04-13 23:03 | P.PN ---
Subjective Progress Note Date: 04/13/17 Principal diagnosis: Left total knee arthroplasty Patient is a 76-year-old pleasant male with a known history of GERD, osteoarthritis and BPH was admitted to the hospital for elective left total knee arthroplasty. Patient tolerated the procedure well. Currently pain is controlled with pain medications. Patient denied any complaints of chest pain or shortness of breath. No nausea vomiting or abdominal pain. No headache or dizziness or lightheadedness. Patient does take Flomax for BPH. Otherwise patient denied any new complaints. 04/08/2017 Patient denied any complaints of chest pain or shortness of breath. Patient was confused this morning was has improved at this time. No fever no chills. No headache or dizziness or lightheadedness. Otherwise no acute overnight issues. Participating in physical therapy. 04/09/2017 Patient denied any complaints of knee pain. No chest pain no shortness of breath. Patient did have urinary retention and was placed on Arredondo catheter which has been removed. Post void residual was ordered as well as urology has been consulted. Otherwise no fever no chills. No nausea vomiting or abdominal pain. No diarrhea. No acute overnight issues otherwise. 04/10/2017 Patient denied any chest pain or shortness of breath. Patient was seen by urology. Post void residual showed greater than 350 mL. Patient was placed back on Arredondo catheter. Patient will need to follow with urology for surgery. Otherwise no fever no chills. Tolerating oral diet. No other acute overnight issues issues. 04/11/2017 Patient denied any new complaints today. No chest pain no shortness of breath. No complaints of abdominal pain or nausea vomiting. Continue to be on Arredondo catheter. Awaiting transfer to rehab. 04/12/2017 [address] is in place. Otherwise denied any new complaints. awaiting to be transferred to rehab 04/13/2017 arredondo catheter is in place. Otherwise denied any new complaints. awaiting to be transferred to rehab Current medications reviewed Objective - Vital Signs Vital signs: Vital Signs Temp 98.4 F 04/13/17 20:24 Pulse 72 04/13/17 20:24 Resp 16 04/13/17 20:24 BP 131/64 04/13/17 20:24 Pulse Ox 97 04/13/17 20:24 Intake & Output 04/13/17 04/13/17 04/14/17 06:59 18:59 06:59 Intake Total 500 300 Output Total 1350 650 600 Balance -1350 -150 -300 Intake: Oral 500 300 Output: Urine 1350 650 600 Straight 650 600 Other: Voiding Method Indwelling Catheter Indwelling Catheter Indwelling Catheter - Exam PHYSICAL EXAMINATION: Patient is lying in the bed comfortably, no acute distress, awake alert and oriented.. HEENT: Normocephalic. Neck is supple. Pupils reactive. Nostrils clear. Oral cavity is moist. Ears reveal no drainage. Neck reveals no JVD, carotid bruits, or thyromegaly. CHEST EXAMINATION: Trachea is central. Symmetrical expansion. Lung kurtz clear to auscultation and percussion. CARDIAC: Normal S1, S2 with no gallops. No murmurs ABDOMEN: Soft. Bowel sounds normal. No organomegaly. No abdominal bruits. Extremities: reveal no edema. No clubbing or cyanosis Neurologically awake, alert, oriented x3 with well-coordinated movements. No focal deficits noted Skin: No rash or skin lesions. Psychiatric: Coperative. Nonsuicidal Musculoskeletal: No joint swelling or deformity. Normal range of motion. - Labs CBC & Chem 7: 04/10/17 06:18 Assessment and Plan Assessment: Osteoarthritis status post left total knee arthroplasty on 04/07/2017 Acute urinary retention likely due to narcotic pain medications along with underlying BPH. Continue to be on indwelling Arredondo catheter Benign prostatic hypertrophy GERD Osteoarthritis of multiple joints DVT prophylaxis Plan: Patient was placed back on Arredondo catheter and is to follow with urology in the clinic. Patient will be continued on pain management and bowel regimen. DVT prophylaxis. PT OT. Follow up H&H. Continue with Flomax and follow closely further recommendations based on the clinical course. Patient is being transferred to rehab.
--- NOTE | 2017-04-13 23:03 | P.PN ---
Subjective Progress Note Date: 04/12/17 Principal diagnosis: Left total knee arthroplasty Patient is a 76-year-old pleasant male with a known history of GERD, osteoarthritis and BPH was admitted to the hospital for elective left total knee arthroplasty. Patient tolerated the procedure well. Currently pain is controlled with pain medications. Patient denied any complaints of chest pain or shortness of breath. No nausea vomiting or abdominal pain. No headache or dizziness or lightheadedness. Patient does take Flomax for BPH. Otherwise patient denied any new complaints. 04/08/2017 Patient denied any complaints of chest pain or shortness of breath. Patient was confused this morning was has improved at this time. No fever no chills. No headache or dizziness or lightheadedness. Otherwise no acute overnight issues. Participating in physical therapy. 04/09/2017 Patient denied any complaints of knee pain. No chest pain no shortness of breath. Patient did have urinary retention and was placed on Arredondo catheter which has been removed. Post void residual was ordered as well as urology has been consulted. Otherwise no fever no chills. No nausea vomiting or abdominal pain. No diarrhea. No acute overnight issues otherwise. 04/10/2017 Patient denied any chest pain or shortness of breath. Patient was seen by urology. Post void residual showed greater than 350 mL. Patient was placed back on Arredondo catheter. Patient will need to follow with urology for surgery. Otherwise no fever no chills. Tolerating oral diet. No other acute overnight issues issues. 04/11/2017 Patient denied any new complaints today. No chest pain no shortness of breath. No complaints of abdominal pain or nausea vomiting. Continue to be on Arredondo catheter. Awaiting transfer to rehab. 04/12/2017 [address]redondo catheter is in place. Otherwise denied any new complaints. awaiting to be transferred to rehab Current medications reviewed Objective - Vital Signs Vital signs: Vital Signs Temp 98.3 F 04/12/17 20:00 Pulse 74 04/12/17 20:00 Resp 18 04/12/17 20:00 BP 122/70 04/12/17 20:00 Pulse Ox 97 04/12/17 20:00 Intake & Output 04/12/17 04/12/17 04/13/17 06:59 18:59 06:59 Intake Total 850 740 Output Total 650 475 350 Balance 200 265 -350 Intake: Intake, IV Titration 100 Amount Sodium Chloride 0.9% 1, 100 000 ml @ 50 mls/hr IV . Q20H [facility] Rx#:[id number] Oral 750 740 Output: Urine 650 475 350 Straight 475 Other: Voiding Method Indwelling Catheter Indwelling Catheter - Exam PHYSICAL EXAMINATION: Patient is lying in the bed comfortably, no acute distress, awake alert and oriented.. HEENT: Normocephalic. Neck is supple. Pupils reactive. Nostrils clear. Oral cavity is moist. Ears reveal no drainage. Neck reveals no JVD, carotid bruits, or thyromegaly. CHEST EXAMINATION: Trachea is central. Symmetrical expansion. Lung kurtz clear to auscultation and percussion. CARDIAC: Normal S1, S2 with no gallops. No murmurs ABDOMEN: Soft. Bowel sounds normal. No organomegaly. No abdominal bruits. Extremities: reveal no edema. No clubbing or cyanosis Neurologically awake, alert, oriented x3 with well-coordinated movements. No focal deficits noted Skin: No rash or skin lesions. Psychiatric: Coperative. Nonsuicidal Musculoskeletal: No joint swelling or deformity. Normal range of motion. - Labs CBC & Chem 7: 04/10/17 06:18 Assessment and Plan Assessment: Osteoarthritis status post left total knee arthroplasty on 04/07/2017 Acute urinary retention likely due to narcotic pain medications along with underlying BPH. Continue to be on indwelling Arredondo catheter Benign prostatic hypertrophy GERD Osteoarthritis of multiple joints DVT prophylaxis Plan: Patient was placed back on Arredondo catheter and is to follow with urology in the clinic. Patient will be continued on pain management and bowel regimen. DVT prophylaxis. PT OT. Follow up H&H. Continue with Flomax and follow closely further recommendations based on the clinical course. Patient is being transferred to rehab.
[2017-04-14] MEDS: SODIUM CHLORIDE 0.9% 1,000 ML IV SCH (04:50)
[2017-04-14] MEDS: FAMOTIDINE 20 MG TAB PO SCH (08:27)
[2017-04-14] MEDS: ENOXAPARIN 30 MG/0.3 ML SYRINGE SQ SCH ×2 (08:27→21:43)
[2017-04-14] MEDS: traMADol 50 MG TAB PO SCH ×4 (08:27→21:44)
[2017-04-14] MEDS: MELOXICAM 7.5 MG TAB PO SCH (08:28)
[2017-04-14 08:29] VITALS: RESP 16
[2017-04-14] MEDS: TAMSULOSIN 0.4 MG CAP.ER.24H PO SCH (21:44)
[2017-04-14] MEDS: SENNOSIDES-DOCUSATE SODIUM 1 EACH TAB PO SCH (21:44)
--- NOTE | 2017-04-14 22:07 | P.PN ---
Subjective Progress Note Date: 04/14/17 Principal diagnosis: Left total knee arthroplasty Patient is a 76-year-old pleasant male with a known history of GERD, osteoarthritis and BPH was admitted to the hospital for elective left total knee arthroplasty. Patient tolerated the procedure well. Currently pain is controlled with pain medications. Patient denied any complaints of chest pain or shortness of breath. No nausea vomiting or abdominal pain. No headache or dizziness or lightheadedness. Patient does take Flomax for BPH. Otherwise patient denied any new complaints. 04/08/2017 Patient denied any complaints of chest pain or shortness of breath. Patient was confused this morning was has improved at this time. No fever no chills. No headache or dizziness or lightheadedness. Otherwise no acute overnight issues. Participating in physical therapy. 04/09/2017 Patient denied any complaints of knee pain. No chest pain no shortness of breath. Patient did have urinary retention and was placed on Arredondo catheter which has been removed. Post void residual was ordered as well as urology has been consulted. Otherwise no fever no chills. No nausea vomiting or abdominal pain. No diarrhea. No acute overnight issues otherwise. 04/10/2017 Patient denied any chest pain or shortness of breath. Patient was seen by urology. Post void residual showed greater than 350 mL. Patient was placed back on Arredondo catheter. Patient will need to follow with urology for surgery. Otherwise no fever no chills. Tolerating oral diet. No other acute overnight issues issues. 04/11/2017 Patient denied any new complaints today. No chest pain no shortness of breath. No complaints of abdominal pain or nausea vomiting. Continue to be on Arredondo catheter. Awaiting transfer to rehab. 04/12/2017 [address] in place. Otherwise denied any new complaints. awaiting to be transferred to rehab 04/13/2017 arred[address] catheter is in place. Otherwise denied any new complaints. awaiting to be transferred to rehab 04/14/2017 Patient is awaiting to be transferred to rehab. Denied any new complaints. Current medications reviewed Objective - Vital Signs Vital signs: Vital Signs Temp 98.5 F 04/14/17 19:00 Pulse 77 04/14/17 19:00 Resp 16 04/14/17 19:00 BP 117/67 04/14/17 19:00 Pulse Ox 96 04/14/17 19:00 Intake & Output 04/14/17 04/14/17 04/15/17 06:59 18:59 06:59 Intake Total 890 400 Output Total 600 600 Balance 290 -200 Weight 68.039 kg Intake: Oral 890 400 Output: Urine 600 600 Straight 600 Other: Voiding Method Indwelling Catheter Indwelling Catheter # Voids 900 - Exam PHYSICAL EXAMINATION: Patient is lying in the bed comfortably, no acute distress, awake alert and oriented.. HEENT: Normocephalic. Neck is supple. Pupils reactive. Nostrils clear. Oral cavity is moist. Ears reveal no drainage. Neck reveals no JVD, carotid bruits, or thyromegaly. CHEST EXAMINATION: Trachea is central. Symmetrical expansion. Lung kurtz clear to auscultation and percussion. CARDIAC: Normal S1, S2 with no gallops. No murmurs ABDOMEN: Soft. Bowel sounds normal. No organomegaly. No abdominal bruits. Extremities: reveal no edema. No clubbing or cyanosis Neurologically awake, alert, oriented x3 with well-coordinated movements. No focal deficits noted Skin: No rash or skin lesions. Psychiatric: Coperative. Nonsuicidal Musculoskeletal: No joint swelling or deformity. Normal range of motion. - Labs CBC & Chem 7: 04/10/17 06:18 Assessment and Plan Assessment: Osteoarthritis status post left total knee arthroplasty on 04/07/2017 Acute urinary retention likely due to narcotic pain medications along with underlying BPH. Continue to be on indwelling Arredondo catheter Benign prostatic hypertrophy GERD Osteoarthritis of multiple joints DVT prophylaxis Plan: Patient was placed back on Arredondo catheter and is to follow with urology in the clinic. Patient will be continued on pain management and bowel regimen. DVT prophylaxis. PT OT. Follow up H&H. Continue with Flomax and follow closely further recommendations based on the clinical course. Patient is being transferred to rehab.
[2017-04-15] MEDS: SODIUM CHLORIDE 0.9% 1,000 ML IV SCH (06:19)
[2017-04-15] MEDS: MELOXICAM 7.5 MG TAB PO SCH (10:19)
[2017-04-15] MEDS: ENOXAPARIN 30 MG/0.3 ML SYRINGE SQ SCH (10:19)
[2017-04-15] MEDS: FAMOTIDINE 20 MG TAB PO SCH (10:20)
[2017-04-15] MEDS: traMADol 50 MG TAB PO SCH ×2 (10:22→14:30)
[2017-04-15 15:13] VITALS: BP 124/77; PULSE 94; TEMP 97.5
== END 2017-04-15 15:35 | DRG 470 ==
LOC: 2ORMAIN 08:49 → 3SUR 11:54
PROVIDERS: ADMIT Orthopaedic Surgery; ATTEND Orthopaedic Surgery
PROC: 0SRD0J9 Replacement of Left Knee Joint with Synthetic Substitute, Cemented, Open Approach (ICD-10-PCS; principal; 2017-04-07 10:20)
DX: M17.12 Unilateral primary osteoarthritis, left knee (principal); I95.9 Hypotension, unspecified; K21.9 Gastro-esophageal reflux disease without esophagitis; N40.1 Benign prostatic hyperplasia with lower urinary tract symptoms; R33.8 Other retention of urine; T40.605A Adverse effect of unspecified narcotics, initial encounter; Z96.651 Presence of right artificial knee joint; Z87.19 Personal history of other diseases of the digestive system; Z87.891 Personal history of nicotine dependence; Z80.1 Family history of malignant neoplasm of trachea, bronchus and lung; Z79.899 Other long term (current) drug therapy
CPT/HCPCS: 71045; 85025; 88300

== ENCOUNTER 2018-06-17 10:40 | Emergency (ER) | payer MEDICARE ==
[2018-06-17 10:53] VITALS: RESP 16
--- NOTE | 2018-06-17 11:07 | ED ---
General Adult HPI - General Chief complaint: Fall Stated complaint: Fall, head injury Time Seen by Provider: 06/17/18 10:59 Source: patient Mode of arrival: wheelchair Limitations: no limitations - History of Present Illness Initial comments: Dictation was produced using [employer] dictation software. please excuse any grammatical, word or spelling errors. Chief Complaint: Patient is 77-year-old male with past medical history of GERD, osteoarthritis and prostate disease presents after fall. History of Present Illness: Approximately 1 hour prior to arrival patient was out in the yard putting together shrubs to throw away. States that he was walking over a sidewalk he tripped over some grass causing him to fall forward. Patient states he tried to catch himself his right upper extremity. He states he hit his head. Denies any loss of consciousness. Patient reports his tetanus is up-to-date. Patient claims of mild headache to the right parietal area. Patient reports he is on Coumadin for prostate disease. The ROS documented in this emergency department record has been reviewed and confirmed by me. Those systems with pertinent positive or negative responses have been documented in the HPI. All other systems are other negative and/or noncontributory. PHYSICAL EXAM: General Impression: Alert and oriented x3, not in acute distress HEENT: Superficial abrasion to the right anterior forehead, abrasion to the nose and right medial chin., extra-ocular movements intact, pupils equal and reactive to light bilaterally, mucous membranes moist. Cardiovascular: Heart regular rate and rhythm, S1&S2 audible, no murmurs, rubs or gallops Chest: Lungs clear to auscultation bilaterally, no rhonchi, no wheeze, no rales Abdomen: Bowel sounds present, abdomen soft, non-tender, non-distended, no organomegaly Musculoskeletal: Pulses present and equal in all extremities, no peripheral edema Motor: no focal deficits noted Neurological: CN II-XII grossly intact, no focal motor or sensory deficits noted Skin: Intact with no visualized rashes Psych: Normal affect and mood ED course: 72-year-old male presents after mechanical fall. He clearly reports tripping over grass. No LOC. After further questioning patient is not on Coumadin he is on tamsulosin. Patient has any vital signs upon arrival are within acceptable limits. Given patient's age and comorbidities computed tomography scan of the head was obtained.Return evaluation obtained. CBC unremarkable. Coag panel unremarkable. Metabolic panel is negative. Computed tomography scan of the head and C-spine was unremarkable for any acute intracranial process. Patient ambulatory and tolerate by mouth at bedside. Patient is baseline. No knee for tetanus update given that patient's to date on his tetanus from his primary care physician. Patient given bacitracin for his wounds. Patient put for discharge. Patient told to return to emergency D epartment with any worsening symptoms including strokelike symptoms or worsening headache. EKG interpretation: Ventricular rate 65, normal sinus rhythm, MN interval 170, QS 90, QTc 432. No MN prolongation, no QTC prolongation, no ST or T-wave changes noted. Overall, this EKG is unremarkable - Related Data Home Medications Medication Instructions Recorded Confirmed Tamsulosin HCl [Flomax] 0.4 mg PO HS 07/19/16 04/07/17 Previous Rx's Medication Instructions Recorded Aspirin 325 mg PO BID #60 tab 04/10/17 Docusate [Colace] 100 mg PO DAILY #30 capsule 04/10/17 Famotidine [Pepcid] 20 mg PO DAILY #30 tablet 04/10/17 Hydrocodone/Acetaminophen [[place] 1 each PO Q6HR PRN #40 tab 04/10/17 5-325] Allergies Allergy/AdvReac Type Severity Reaction Status Date / Time No Known Allergies Allergy Verified 06/17/18 10:53 Review of Systems ROS Statement: Those systems with pertinent positive or pertinent negative responses have been documented in the HPI. ROS Other: All systems not noted in ROS Statement are negative. Past Medical History Past Medical History: GERD/Reflux, Osteoarthritis (OA), Prostate Disorder Additional Past Medical History / Comment(s): Enlarged Prostate, "BLOOD IN THE URINE" History of Any Multi-Drug Resistant Organisms: None Reported Past Surgical History: Joint Replacement Additional Past Surgical History / Comment(s): Right knee replacement, esophageal ulcer surgery. Past Anesthesia/Blood Transfusion Reactions: No Reported Reaction Past Psychological History: No Psychological Hx Reported Smoking Status: Former smoker - Past Family History Mother Family Medical History: Cancer Father Family Medical History: Cancer Additional Family Medical History / Comment(s): LUNG CANCER Brother(s) Family Medical History: Cancer Additional Family Medical History / Comment(s): LUNG CANCER General Exam Limitations: no limitations Course Vital Signs 06/17/18 10:50 Temperature 97.8 F Pulse Rate 73 Respiratory 16 Rate Blood Pressure 128/81 O2 Sat by Pulse 98 Oximetry Medical Decision Making - Lab Data Result diagrams: 06/17/18 11:05 06/17/18 11:05 Lab Results 06/17/18 06/17/18 06/17/18 Range/Units 11:05 11:05 11:05 WBC 6.0 (3.8-10.6) k/uL RBC 5.28 (4.30-5.90) m/uL Hgb 15.4 (13.0-17.5) gm/dL Hct 45.3 (39.0-53.0) % MCV 85.7 (80.0-100.0) fL MCH 29.2 (25.0-35.0) pg MCHC 34.1 (31.0-37.0) g/dL RDW 13.0 (11.5-15.5) % Plt Count 184 (150-450) k/uL Neutrophils % 73 % Lymphocytes % 15 % Monocytes % 7 % Eosinophils % 3 % Basophils % 0 % Neutrophils # 4.4 (1.3-7.7) k/uL Lymphocytes # 0.9 L (1.0-4.8) k/uL Monocytes # 0.4 (0-1.0) k/uL Eosinophils # 0.2 (0-0.7) k/uL Basophils # 0.0 (0-0.2) k/uL PT 10.9 (9.0-12.0) sec INR 1.0 (<1.2) Sodium 140 (137-145) mmol/L Potassium 4.4 (3.5-5.1) mmol/L Chloride 108 H (98-107) mmol/L Carbon Dioxide 24 (22-30) mmol/L Anion Gap 8 mmol/L BUN 21 H (9-20) mg/dL Creatinine 0.60 L (0.66-1.25) mg/dL Est GFR (CKD-EPI)AfAm >90 (>60 ml/min/1.73 sqM) Est GFR (CKD-EPI)NonAf >90 (>60 ml/min/1.73 sqM) Glucose 116 H (74-99) mg/dL Calcium 9.3 (8.4-10.2) mg/dL Disposition Clinical Impression: Head contusion, Fall Disposition: HOME SELF-CARE Condition: Good Instructions (If sedation given, give patient instructions): Fall Prevention for Older Adults (ED) Is patient prescribed a controlled substance at d/c from ED?: No Referrals: Wily Nevarez MD [Primary Care Provider] - 1-2 days Time of Disposition: 12:08
[2018-06-17 11:21] LABS: Basophils % (A) 0 %; Eosinophils # (A) 0.2 k/uL (0-0.7); Eosinophils % (A) 3 %; HCT 45.3 % (39.0-53.0); HGB 15.4 gm/dL (13.0-17.5); Lymphocytes # (A) 0.9 k/uL (1.0-4.8); Lymphocytes % (A) 15 %; MCH 29.2 pg (25.0-35.0); MCHC 34.1 g/dL (31.0-37.0); MCV 85.7 fL (80.0-100.0); Mean Platelet Volume 7.3; Monocytes # (A) 0.4 k/uL (0-1.0); Monocytes % (A) 7 %; Neutrophils # (A) 4.4 k/uL (1.3-7.7); Neutrophils % (A) 73 %; Platelet Count 184 k/uL (150-450); RBC 5.28 m/uL (4.30-5.90)
[2018-06-17 11:31] LABS: Prothrombin Time 10.9 sec (9.0-12.0)
[2018-06-17 11:34] LABS: Anion Gap 8 mmol/L; Blood Urea Nitrogen 21 mg/dL (9-20); Calcium 9.3 mg/dL (8.4-10.2); Carbon Dioxide 24 mmol/L (22-30); Chloride 108 mmol/L (98-107); Glucose 116 mg/dL (74-99); Potassium 4.4 mmol/L (3.5-5.1); Sodium 140 mmol/L (137-145)
--- NOTE | 2018-06-17 11:58 | CT ---
EXAMINATION TYPE: CT brain ant[place] larry DATE OF EXAM: 06/17/2018 COMPARISON: NONE HISTORY: Headache and frontal laceration post fall today. CT DLP: 1229.6 mGycm. Automated Exposure Control for Dose Reduction was Utilized. TECHNIQUE: CT scan of the head and cervical spine are performed without contrast. FINDINGS: There is no acute intracranial hemorrhage, mass effect, or midline shift identified. Dys trophic basal ganglia calcifications are present. The ventricles and sulci are within normal limits i n size. No suspicious extra-axial fluid collection. The globes are intact and the visualized sinuses are clear. Frontal scalp contusion without sizable hematoma is noted. Cervical spine is visualized in its entirety from C1 through upper thoracic levels and demonstrates s atisfactory alignment without evidence of acute fracture or dislocation. Multilevel degenerative dis c disease is seen with osseous bridging of the right facet joints at C4-C5 and small posterior disc o steophyte complexes at C5-C6 and C6-C7. Degenerative narrowing of the atlantodental interval is also seen. Prevertebral soft tissue appears within normal limits. The C1-C2 articulation is unremarkable. IMPRESSION: 1. There is no acute fracture or dislocation evident in the cervical spine. 2. No acute intracranial hemorrhage, mass effect, or midline shift is seen. Right frontal scalp contu rhiannon is present without hematoma. 3. Mild to moderate multilevel degenerative disc disease of the cervical spine without vertebral body height loss or malalignment.
[2018-06-17 12:55] VITALS: BP 148/83; PULSE 65; TEMP 98.3
== END 2018-06-17 12:55 | disposition home or self-care (01) ==
LOC: EC 10:40
DX: S00.83XA Contusion of other part of head, initial encounter (principal); S00.31XA Abrasion of nose, initial encounter; S00.81XA Abrasion of other part of head, initial encounter; M19.90 Unspecified osteoarthritis, unspecified site; N40.0 Benign prostatic hyperplasia without lower urinary tract symptoms; Z87.891 Personal history of nicotine dependence; Z79.899 Other long term (current) drug therapy; Z96.651 Presence of right artificial knee joint; W01.10XA Fall on same level from slipping, tripping and stumbling with subsequent striking against unspecified object, initial encounter; Y92.480 Sidewalk as the place of occurrence of the external cause; Y93.01 Activity, walking, marching and hiking
CPT/HCPCS: 36415; 70450; 72125; 80048; 85025; 85610; 93005; 99284

== ENCOUNTER 2019-09-26 21:42 | Inpatient (IN) | payer MEDICARE ==
[2019-09-26] MEDS ORDERED: SODIUM CHLORIDE 0.9% 500 ML 500 ML IV ONE (22:04)
--- NOTE | 2019-09-26 22:30 | ED ---
General Adult HPI - General Chief complaint: Fall Stated complaint: Fall Time Seen by Provider: 09/26/19 21:47 Source: patient, EMS Mode of arrival: EMS Limitations: no limitations - History of Present Illness Initial comments: Patient is an 79-year-old male with past history of dementia who presents emergency room and after his found down at home by his guardian. Guardian is his nephew's . She states that his neighbor saw him well earlier today. She did go over to his house to check on him and he was found face down. Unknown if the patient had fallen. Patient is alert and oriented 2. Follows all commands and is able to answer questions. Unsure by the patient was found the ground or how long he had been there. He had notable pressure ulcers to the patient's left side of his face, left lip, sternum and both knees. Patient has no complaints of pain at this time. He is freely moving his arms and legs. He denies any headaches or visual changes. No fevers or chills. Denies any nausea or vomiting. Remainder of the HPI is limited as the patient is a poor historian - Related Data Home Medications Medication Instructions Recorded Confirmed Tamsulosin HCl [Flomax] 0.4 mg PO HS 07/19/16 09/27/19 Donepezil HCl [Aricept] 5 mg PO BID 09/27/19 09/27/19 Oxybutynin Chloride [Ditropan] 5 mg PO BID 09/27/19 09/27/19 Previous Rx's Medication Instructions Recorded Bacitracin Oint 1 applic TOPICAL BID applic 09/30/19 Cefuroxime Axetil [Ceftin] 500 mg PO BID 3 Days #6 tab 09/30/19 QUEtiapine [SEROquel] 25 mg PO HS PRN #20 tab 09/30/19 Thiamine [Vitamin B-1] 100 mg PO DAILY tab 10/01/19 Allergies Allergy/AdvReac Type Severity Reaction Status Date / Time No Known Allergies Allergy Verified 09/27/19 10:44 Review of Systems ROS Statement: Those systems with pertinent positive or pertinent negative responses have been documented in the HPI. ROS Other: All systems not noted in ROS Statement are negative. Past Medical History Past Medical History: GERD/Reflux, Osteoarthritis (OA), Prostate Disorder Additional Past Medical History / Comment(s): Enlarged Prostate, "BLOOD IN THE URINE" History of Any Multi-Drug Resistant Organisms: None Reported Past Surgical History: Joint Replacement Additional Past Surgical History / Comment(s): Right knee replacement, esophageal ulcer surgery. Past Anesthesia/Blood Transfusion Reactions: No Reported Reaction Past Psychological History: No Psychological Hx Reported Smoking Status: Former smoker Past Alcohol Use History: Unable to Obtain Past Drug Use History: Unable to Obtain - Past Family History Mother Family Medical History: Cancer Father Family Medical History: Cancer Additional Family Medical History / Comment(s): LUNG CANCER Brother(s) Family Medical History: Cancer Additional Family Medical History / Comment(s): LUNG CANCER General Exam Limitations: altered mental status General appearance: alert, in no apparent distress Head exam: Present: other (patients face covered in dry blood. pressure ulcer left check measuring approximately 7x5 cm) Eye exam: Present: PERRL, EOMI ENT exam: Present: mucous membranes dry, other (patient has pressure wounds on the inner corners of both mouth. no active bleeding) Neck exam: Present: normal inspection. Absent: tenderness Respiratory exam: Present: normal lung sounds bilaterally. Absent: respiratory distress, wheezes, rales, rhonchi, stridor Cardiovascular Exam: Present: regular rate, normal rhythm, normal heart sounds. Absent: systolic murmur, diastolic murmur, rubs, gallop, clicks GI/Abdominal exam: Present: soft, normal bowel sounds. Absent: distended, ten derness, guarding, rebound, rigid Extremities exam: Present: normal inspection, full ROM Back exam: Present: normal inspection Neurological exam: Present: alert, other (oriented x 1) Skin exam: Present: other (multiple pressure ulcers - sternum, b/l elbows, left face, b/l knees) Course Vital Signs 09/26/19 09/26/19 09/27/19 22:07 22:56 00:15 Temperature 98.2 F Pulse Rate 80 79 90 Respiratory 32 H 24 24 Rate Blood Pressure 120/92 150/86 112/84 O2 Sat by Pulse 99 98 99 Oximetry 09/27/19 01:41 Temperature 99.4 F Pulse Rate 75 Respiratory 21 Rate Blood Pressure 137/79 O2 Sat by Pulse 99 Oximetry EKG Findings - EKG Comments: EKG Findings:: EKG demonstrates normal sinus rhythm with a ventricular rate of 92. OK interval 142. QRS 68. QTC of 474. No acute ST segment elevations or depressions concerning for ischemic changes Medical Decision Making - Medical Decision Making Upon arrival the patient is placed into room 2. A thorough history and physical exam was performed. Patient does have notable abrasions to left-sided. Pressure ulcer to the inside of the patient's left lip. Patient has some lividity and ulcers to his sternum and bilateral knees. Peripheral IV was es tablished. Patient was given a 500 mL bolus of normal saline. Laboratory studies were conducted. Chest and pelvic x-ray was performed. I also performed multiple fractures patient's upper extremities. White blood count is 25.3. Potassium 6.2. Creatinine 6.6. CK 2044. We did put in a Hawk because the patient's ARABELLA. He immediately drained 1300 mL of urine. Hawk bag is clamped off. Patient was given an amp of dextrose and 10 units of insulin for his hyperkalemia. Patient was given an additional 1 L bolus of normal saline followed by 130 mL/h. He did recommend hospital admission for which the patient and his guardian did agree to. Guardian states the patient is a no code. I will trend his electrolytes every 4 hours. Patient will be admitted to [facility]. He spoke with Tiffany the nurse practitioner. Nephrology and trauma will be consulted. The patient remained in stable condition awaiting a bed on the floor - Lab Data Result diagrams: 09/30/19 05:37 09/30/19 05:37 Lab Results 09/26/19 09/26/19 09/26/19 Range/Units 21:55 21:55 21:55 WBC 25.3 H (3.8-10.6) k/uL RBC 5.87 (4.30-5.90) m/uL Hgb 18.3 H (13.0-17.5) gm/dL Hct 51.7 (39.0-53.0) % MCV 88.1 (80.0-100.0) fL MCH 31.2 (25.0-35.0) pg MCHC 35.4 (31.0-37.0) g/dL RDW 12.9 (11.5-15.5) % Plt Count 137 L (150-450) k/uL Neutrophils % 88 % Lymphocytes % 3 % Monocytes % 8 % Eosinophils % 0 % Basophils % 0 % Neutrophils # 22.2 H (1.3-7.7) k/uL Lymphocytes # 0.6 L (1.0-4.8) k/uL Monocytes # 2.1 H (0-1.0) k/uL Eosinophils # 0.1 (0-0.7) k/uL Basophils # 0.0 (0-0.2) k/uL PT 13.0 H (9.0-12.0) sec INR 1.3 H (<1.2) APTT 23.2 (22.0-30.0) sec Sodium 133 L (137-145) mmol/L Potassium 6.2 H* (3.5-5.1) mmol/L Chloride 98 (98-107) mmol/L Carbon Dioxide 15 L (22-30) mmol/L Anion Gap 20 mmol/L BUN 140 H* (9-20) mg/dL Creatinine 6.64 H (0.66-1.25) mg/dL Est GFR (CKD-EPI)AfAm 8 (>60 ml/min/1.73 sqM) Est GFR (CKD-EPI)NonAf 7 (>60 ml/min/1.73 sqM) Glucose 165 H (74-99) mg/dL Calcium 8.5 (8.4-10.2) mg/dL Total Bilirubin 1.3 (0.2-1.3) mg/dL AST 89 H (17-59) U/L ALT 84 H (4-49) U/L Alkaline Phosphatase 81 (38-126) U/L Creatine Kinase 2044 H* (55-170) U/L Troponin I (0.000-0.034) ng/mL Total Protein 6.9 (6.3-8.2) g/dL Albumin 4.3 (3.5-5.0) g/dL 09/26/19 Range/Units 21:55 WBC (3.8-10.6) k/uL RBC (4.30-5.90) m/uL Hgb (13.0-17.5) gm/dL Hct (39.0-53.0) % MCV (80.0-100.0) fL MCH (25.0-35.0) pg MCHC (31.0-37.0) g/dL RDW (11.5-15.5) % Plt Count (150-450) k/uL Neutrophils % % Lymphocytes % % Monocytes % % Eosinophils % % Basophils % % Neutrophils # (1.3-7.7) k/uL Lymphocytes # (1.0-4.8) k/uL Monocytes # (0-1.0) k/uL Eosinophils # (0-0.7) k/uL Basophils # (0-0.2) k/uL PT (9.0-12.0) sec INR (<1.2) APTT (22.0-30.0) sec Sodium (137-145) mmol/L Potassium (3.5-5.1) mmol/L Chloride (98-107) mmol/L Carbon Dioxide (22-30) mmol/L Anion Gap mmol/L BUN (9-20) mg/dL Creatinine (0.66-1.25) mg/dL Est GFR (CKD-EPI)AfAm (>60 ml/min/1.73 sqM) Est GFR (CKD-EPI)NonAf (>60 ml/min/1.73 sqM) Glucose (74-99) mg/dL Calcium (8.4-10.2) mg/dL Total Bilirubin (0.2-1.3) mg/dL AST (17-59) U/L ALT (4-49) U/L Alkaline Phosphatase (38-126) U/L Creatine Kinase (55-170) U/L Troponin I 0.032 (0.000-0.034) ng/mL Total Protein (6.3-8.2) g/dL Albumin (3.5-5.0) g/dL Disposition Clinical Impression: Fall, Facial trauma, Rhabdomyolysis, ARABELLA (acute kidney injury), Acute hyperkalemia, Leukocytosis Disposition: ADMITTED IP TO THIS [facility] Condition: Stable Is patient prescribed a controlled substance at d/c from ED?: No Decision to Admit Reason: Admit from EC Decision Date: 09/26/19 Decision Time: 23:36
[2019-09-26 22:36] LABS: Basophils % (A) 0 %; Eosinophils # (A) 0.1 k/uL (0-0.7); Eosinophils % (A) 0 %; HCT 51.7 % (39.0-53.0); HGB 18.3 gm/dL (13.0-17.5); Lymphocytes # (A) 0.6 k/uL (1.0-4.8); Lymphocytes % (A) 3 %; MCH 31.2 pg (25.0-35.0); MCHC 35.4 g/dL (31.0-37.0); MCV 88.1 fL (80.0-100.0); Mean Platelet Volume 8.3; Monocytes # (A) 2.1 k/uL (0-1.0); Monocytes % (A) 8 %; Neutrophils # (A) 22.2 k/uL (1.3-7.7); Neutrophils % (A) 88 %; Platelet Count 137 k/uL (150-450); RBC 5.87 m/uL (4.30-5.90); RDW 12.9 % (11.5-15.5); WBC 25.3 k/uL (3.8-10.6)
[2019-09-26 22:44] LABS: INR 1.3 (<1.2); Partial Thromboplastin Time 23.2 sec (22.0-30.0)
[2019-09-26 22:47] LABS: Albumin 4.3 g/dL (3.5-5.0); Calcium 8.5 mg/dL (8.4-10.2); Total Bilirubin 1.3 mg/dL (0.2-1.3); Total Protein 6.9 g/dL (6.3-8.2)
--- NOTE | 2019-09-26 22:59 | CT ---
EXAMINATION TYPE: CT brain cspine wo con DATE OF EXAM: 09/26/2019 COMPARISON: 06/17/2018 HISTORY: fall, ams Neck pain. CT DLP: combined DLP 1016.4 mGycm Automated exposure control for dose reduction was used. There is cerebral cortical atrophy. There is no mass effect nor midline shift. There is no sign of in tracranial hemorrhage. The calvarium is intact. Skull base is intact. There is no evidence of cerebra l edema. Cervical vertebra have normal alignment. There is no compression fracture. There is normal aeration o f the temporal bones. Facet joints are intact. There is mild hypertrophic facet arthropathy. Preverte bral soft tissues are within normal limits. IMPRESSION: Cerebral atrophy. No acute intracranial abnormality. Negative CT scan of the cervical spine. No fracture. No significant change compared to old exam.
[2019-09-26 23:02] LABS: Potassium 6.2 mmol/L (3.5-5.1)
--- NOTE | 2019-09-26 23:05 | CT ---
EXAMINATION TYPE: CT facial bones wo con DATE OF EXAM: 09/26/2019 COMPARISON: None HISTORY: fall, ams Pain CT DLP: combined DLP 1016.4 mGycm Automated exposure control for dose reduction was used. The orbital margins appear intact. There is no evidence of retro-orbital mass. The nasal bone appears intact. There is no evidence of a blowout fracture. There is fairly normal aeration of the paranasal sinuses. The maxilla is intact. The zygomatic arches appear normal. The mandibular ring is intact. T emporomandibular joints are intact. I see no focal bone destruction. IMPRESSION: Negative CT scan of the facial bones. No fracture seen.
[2019-09-26] MEDS ORDERED: SODIUM CHLORIDE 0.9% 1,000 ML IV ONE (23:06)
--- NOTE | 2019-09-26 23:06 | XR ---
EXAMINATION TYPE: XR elbow complete bilateral DATE OF EXAM: 09/26/2019 COMPARISON: NONE HISTORY: Pain TECHNIQUE: 6 views FINDINGS: I see no fracture nor dislocation. Elbow joint spaces are fairly normal. There is no sign o f elbow joint effusion. Soft tissues appear normal. IMPRESSION: Negative bilateral elbow exam. No fracture.
--- NOTE | 2019-09-26 23:08 | XR ---
EXAMINATION TYPE: XR wrist complete BILATERAL DATE OF EXAM: 09/26/2019 COMPARISON: NONE HISTORY: Pain TECHNIQUE: 3 views each wrist. FINDINGS: There is deformity of the distal right radius and ulna related to old fractures with some p osttraumatic osteoarthritis. The carpal bones are intact. There is some narrowing and spurring at the first carpometacarpal joints. I see no acute fracture. There appears to be developmental short left first metacarpal. IMPRESSION: Old fracture of the distal right radius and ulna. No acute fracture seen. Deformity of the left first metacarpal consistent with an old injury. No acute abnormality of the lef t wrist.
--- NOTE | 2019-09-26 23:09 | XR ---
EXAMINATION TYPE: XR pelvis AP view DATE OF EXAM: 09/26/2019 COMPARISON: NONE HISTORY: Pain TECHNIQUE: Single view FINDINGS: Pelvic ring is intact. Proximal femurs and hip joints are intact. There is 3 cm rounded den sity over the mid pelvis that could be a large bladder calculus. Sacroiliac joints are intact. IMPRESSION: Possible large bladder stone. No fracture seen.
--- NOTE | 2019-09-26 23:10 | XR ---
EXAMINATION TYPE: XR chest 1V DATE OF EXAM: 09/26/2019 COMPARISON: 04/09/2017 HISTORY: Chest pain Altered mental status TECHNIQUE: FINDINGS: There is no heart failure nor confluent pneumonic infiltrate. Thoracic aorta is atheromatou s. There is slight coarsening of the interstitial markings. There are no hilar masses. There is no pl eural effusion. There are old right-sided healed rib fractures. IMPRESSION: Pulmonary mild fibrotic changes. No acute lung disease. No adverse change. Normal heart.
[2019-09-26] MEDS ORDERED: INSULIN REGULAR 100 UNIT/ML VIAL IV ONE (23:11)
[2019-09-26] MEDS ORDERED: DEXTROSE 50% SYRINGE 50 ML IVP STA (23:11)
[2019-09-26] MEDS ORDERED: NALOXONE 0.4 MG/ML 1 ML VIAL IV PRN (23:36)
[2019-09-27 00:04] LABS: Amorphous Sediment,Urine Rare /hpf; Appearance,Urine Clear (Clear); Bilirubin,Urine Negative (Negative); Blood,Urine Moderate (Negative); Color,Urine Yellow; Glucose,Urine (UA) Negative (Negative); Ketones,Urine Negative (Negative); Leukocyte Esterase,Urine Negative (Negative); Nitrite,Urine Negative (Negative); Protein,Urine Trace (Negative); RBC,Urine 6 /hpf (0-5); Specific Gravity,Urine 1.008 (1.001-1.035); Urobilinogen,Urine <2.0 mg/dL (<2.0); WBC,Urine 1 /hpf (0-5)
[2019-09-27] MEDS: SODIUM CHLORIDE 0.9% 1,000 ML IV SCH ×4 (00:09→20:47)
[2019-09-27] MEDS: PIPERACILLIN-TAZOBACTAM 3.375 GM in SODIUM CHLORIDE 0.9% 100 ML IVPB SCH ×2 (00:10→12:40)
[2019-09-27 01:44] LABS: Glucose,Whole Blood 144 mg/dL (75-99)
[2019-09-27 04:50] LABS: Basophils % (A) 0 %; Calcium 7.9 mg/dL (8.4-10.2); Eosinophils # (A) 0.1 k/uL (0-0.7); Eosinophils % (A) 0 %; HCT 44.1 % (39.0-53.0); HGB 15.6 gm/dL (13.0-17.5); Lymphocytes # (A) 0.6 k/uL (1.0-4.8); Lymphocytes % (A) 3 %; MCH 31.1 pg (25.0-35.0); MCHC 35.4 g/dL (31.0-37.0); MCV 87.9 fL (80.0-100.0); Mean Platelet Volume 7.7; Monocytes # (A) 1.9 k/uL (0-1.0); Monocytes % (A) 11 %; Neutrophils # (A) 14.4 k/uL (1.3-7.7); Neutrophils % (A) 83 %; Platelet Count 103 k/uL (150-450); Potassium 3.6 mmol/L (3.5-5.1); RBC 5.02 m/uL (4.30-5.90); RDW 12.9 % (11.5-15.5); WBC 17.3 k/uL (3.8-10.6)
--- NOTE | 2019-09-27 13:08 | P.GSCN ---
History of Present Illness Consult date: 09/27/19 Reason for Consult: fall Requesting physician: Mckayla Slade History of present illness: CHIEF COMPLAINT: Fall HISTORY OF PRESENT ILLNESS: 79 year old male who presented to the emergency room after he was found down at home by his guardian. Patient is a poor historian. Majority of HPI is taken from the patients medical records. Patient is unable to recall the details of how he ended up on the floor. He appears comfortable at this time. He is hungry and wanting to eat. Per nursing, he is scheduled for a modified barium swallow today after he did not pass his bedside swallow screen. PAST MEDICAL HISTORY: See list. PAST SURGICAL HISTORY: See list. MEDICATIONS: See list. ALLERGIES: See list. SOCIAL HISTORY: No illicit drug use. REVIEW OF SYSTEMS: Unable to obtain a thorough review of systems secondary to current mental status PHYSICAL EXAM: VITAL SIGNS: Reviewed GENERAL: Well-developed in no acute distress. HEENT: No sclera icterus. Extraocular movements grossly intact. Moist buccal mucosa. Head is normocephalic. Hears conversational speech. No nasal drainage. NECK: Supple without lymphadenopathy. CHEST: Non-labored respirations and equal bilateral excursions. CARDIOVASCULAR: Regular rate with regular rhythm. Palpable 2+ radial pulses. ABDOMEN: Soft. Nondistended. Nontender MUSCULOSKELETAL: No clubbing or cyanosis. NEUROLOGIC: No focal or lateralizing signs. Cranial nerves II through XII grossly intact. PSYCH: Appropriate affect. Alert and oriented x 1-2 SKIN: Well perfused. Good skin turgor. Multiple pressure ulcers throughout body which are suspected due to laying on the floor for an unknown period of time LABORATORY DATA: Laboratory data on admission reveals WBC 25.3. Hemoglobin 18.3. Platelet count 137. Potassium 6.2. BUN 140. Creatinine 6.64. Creatinine kinase 2044. Repeat labs from this morning reveal white count 17.3. Hemoglobin 15.6. Platelet count 103. Potassium 3.6. BUN 100. Creatinine 2.86. Creatinine kinase 999. IMAGING: -CT brain and cervical spine: Cerebral atrophy. No acute intracranial abdomen. Negative computed tomography scan of cervical spine. No fracture. -CT face: Negative computed tomography scan of the facial bones. No fracture seen -Elbow x-ray: Negative bilateral elbow exam. No fracture -Hand and wrist x-ray: Old fracture of the distal right radius and ulna. No acute fracture seen. Deformity of the left first metacarpal consistent with an old injury. No acute abnormality of the left wrist. -Pelvic x-ray: Possible large bladder stone. No fracture seen. -Chest x-ray: Pulmonary mild fibrotic changes. No acute lung disease. ASSESSMENT: 1. Fall 2. Rhabdomyolysis 3. Acute renal failure 4. Hyperkalemia 5. Leukocytosis PLAN: -Continue medical management per Dr. Arias -Nephrology on consult for ARABELLA -Patient scheduled for MBS today. Diet pending MBS results -No surgical intervention recommended -We will continue to follow Nurse practitioner note has been reviewed by physician. Signing provider agrees with the documented findings, assessment, and plan of care. Past Medical History Past Medical History: GERD/Reflux, Osteoarthritis (OA), Prostate Disorder Additional Past Medical History / Comment(s): Enlarged Prostate, "BLOOD IN THE URINE" History of Any Multi-Drug Resistant Organisms: None Reported Past Surgical History: Joint Replacement Additional Past Surgical History / Comment(s): Right knee replacement, esophageal ulcer surgery. Past Anesthesia/Blood Transfusion Reactions: No Reported Reaction Past Psychological History: No Psychological Hx Reported Smoking Status: Former smoker Past Alcohol Use History: Unable to Obtain Past Drug Use History: Unable to Obtain - Past Family History Mother Family Medical History: Cancer Father Family Medical History: Cancer Additional Family Medical History / Comment(s): LUNG CANCER Brother(s) Family Medical History: Cancer Additional Family Medical History / Comment(s): LUNG CANCER Medications and Allergies Home Medications Medication Instructions Recorded Confirmed Type Tamsulosin HCl [Flomax] 0.4 mg PO HS 07/19/16 09/27/19 History Donepezil HCl [Aricept] 5 mg PO BID 09/27/19 09/27/19 History Oxybutynin Chloride [Ditropan] 5 mg PO BID 09/27/19 09/27/19 History Allergies Allergy/AdvReac Type Severity Reaction Status Date / Time No Known Allergies Allergy Verified 09/27/19 10:44 Surgical - Exam Vital Signs Temp Pulse Resp BP Pulse Ox 98.2 F 80 32 H 120/92 99 09/26/19 22:07 09/26/19 22:07 09/26/19 22:07 09/26/19 22:07 09/26/19 22:07 Results - Labs 09/27/19 04:20 09/27/19 04:20 Abnormal Lab Results - Last 24 Hours (Table) 09/26/19 09/26/19 09/26/19 Range/Units 21:55 21:55 21:55 WBC 25.3 H (3.8-10.6) k/uL Hgb 18.3 H (13.0-17.5) gm/dL Plt Count 137 L (150-450) k/uL Neutrophils # 22.2 H (1.3-7.7) k/uL Lymphocytes # 0.6 L (1.0-4.8) k/uL Monocytes # 2.1 H (0-1.0) k/uL PT 13.0 H (9.0-12.0) sec INR 1.3 H (<1.2) Sodium 133 L (137-145) mmol/L Potassium 6.2 H* (3.5-5.1) mmol/L Chloride (98-107) mmol/L Carbon Dioxide 15 L (22-30) mmol/L BUN 140 H* (9-20) mg/dL Creatinine 6.64 H (0.66-1.25) mg/dL Glucose 165 H (74-99) mg/dL POC Glucose (mg/dL) (75-99) mg/dL Calcium (8.4-10.2) mg/dL AST 89 H (17-59) U/L ALT 84 H (4-49) U/L Creatine Kinase 2044 H* (55-170) U/L Troponin I (0.000-0.034) ng/mL Urine Protein (Negative) Urine Blood (Negative) Urine RBC (0-5) /hpf Amorphous Sediment (None) /hpf 09/26/19 09/27/19 09/27/19 Range/Units 23:48 01:42 04:20 WBC (3.8-10.6) k/uL Hgb (13.0-17.5) gm/dL Plt Count (150-450) k/uL Neutrophils # (1.3-7.7) k/uL Lymphocytes # (1.0-4.8) k/uL Monocytes # (0-1.0) k/uL PT (9.0-12.0) sec INR (<1.2) Sodium (137-145) mmol/L Potassium (3.5-5.1) mmol/L Chloride (98-107) mmol/L Carbon Dioxide (22-30) mmol/L BUN (9-20) mg/dL Creatinine (0.66-1.25) mg/dL Glucose (74-99) mg/dL POC Glucose (mg/dL) 144 H (75-99) mg/dL Calcium (8.4-10.2) mg/dL AST (17-59) U/L ALT (4-49) U/L Creatine Kinase (55-170) U/L Troponin I 0.053 H* (0.000-0.034) ng/mL Urine Protein Trace H (Negative) Urine Blood Moderate H (Negative) Urine RBC 6 H (0-5) /hpf Amorphous Sediment Rare H (None) /hpf 09/27/19 09/27/19 09/27/19 Range/Units 04:20 04:20 04:20 WBC 17.3 H (3.8-10.6) k/uL Hgb (13.0-17.5) gm/dL Plt Count 103 L (150-450) k/uL Neutrophils # 14.4 H (1.3-7.7) k/uL Lymphocytes # 0.6 L (1.0-4.8) k/uL Monocytes # 1.9 H (0-1.0) k/uL PT (9.0-12.0) sec INR (<1.2) Sodium (137-145) mmol/L Potassium (3.5-5.1) mmol/L Chloride 113 H (98-107) mmol/L Carbon Dioxide 17 L (22-30) mmol/L BUN 100 H (9-20) mg/dL Creatinine 2.86 H (0.66-1.25) mg/dL Glucose 131 H (74-99) mg/dL POC Glucose (mg/dL) (75-99) mg/dL Calcium 7.9 L (8.4-10.2) mg/dL AST (17-59) U/L ALT (4-49) U/L Creatine Kinase 999 H (55-170) U/L Troponin I (0.000-0.034) ng/mL Urine Protein (Negative) Urine Blood (Negative) Urine RBC (0-5) /hpf Amorphous Sediment (None) /hpf Diabetes panel 09/26/19 09/27/19 Range/Units 21:55 04:20 Sodium 133 L 140 (137-145) mmol/L Potassium 6.2 H* 3.6 (3.5-5.1) mmol/L Chloride 98 113 H (98-107) mmol/L Carbon Dioxide 15 L 17 L (22-30) mmol/L BUN 140 H* 100 H (9-20) mg/dL Creatinine 6.64 H 2.86 H (0.66-1.25) mg/dL Glucose 165 H 131 H (74-99) mg/dL Calcium 8.5 7.9 L (8.4-10.2) mg/dL AST 89 H (17-59) U/L ALT 84 H (4-49) U/L Alkaline Phosphatase 81 (38-126) U/L Total Protein 6.9 (6.3-8.2) g/dL Albumin 4.3 (3.5-5.0) g/dL Calcium panel 09/26/19 09/27/19 Range/Units 21:55 04:20 Calcium 8.5 7.9 L (8.4-10.2) mg/dL Albumin 4.3 (3.5-5.0) g/dL Pituitary panel 09/26/19 09/27/19 Range/Units 21:55 04:20 Sodium 133 L 140 (137-145) mmol/L Potassium 6.2 H* 3.6 (3.5-5.1) mmol/L Chloride 98 113 H (98-107) mmol/L Carbon Dioxide 15 L 17 L (22-30) mmol/L BUN 140 H* 100 H (9-20) mg/dL Creatinine 6.64 H 2.86 H (0.66-1.25) mg/dL Glucose 165 H 131 H (74-99) mg/dL Calcium 8.5 7.9 L (8.4-10.2) mg/dL Adrenal panel 09/26/19 09/27/19 Range/Units 21:55 04:20 Sodium 133 L 140 (137-145) mmol/L Potassium 6.2 H* 3.6 (3.5-5.1) mmol/L Chloride 98 113 H (98-107) mmol/L Carbon Dioxide 15 L 17 L (22-30) mmol/L BUN 140 H* 100 H (9-20) mg/dL Creatinine 6.64 H 2.86 H (0.66-1.25) mg/dL Glucose 165 H 131 H (74-99) mg/dL Calcium 8.5 7.9 L (8.4-10.2) mg/dL Total Bilirubin 1.3 (0.2-1.3) mg/dL AST 89 H (17-59) U/L ALT 84 H (4-49) U/L Alkaline Phosphatase 81 (38-126) U/L Total Protein 6.9 (6.3-8.2) g/dL Albumin 4.3 (3.5-5.0) g/dL
--- NOTE | 2019-09-27 13:32 | FL ---
Modified barium swallow. HISTORY: Dysphagia. Modified barium swallow was performed with the department of speech pathology. The patient was prese nted with various consistencies of barium. One episode of silent aspiration with thin liquid barium noted. Full report is to follow from the dep artment of speech pathology. Impression: One episode of silent aspiration with thin liquid barium noted
--- NOTE | 2019-09-27 14:15 | US ---
EXAMINATION TYPE: US kidneys/renal and bladder DATE OF EXAM: 09/27/2019 COMPARISON: US CLINICAL HISTORY: RF. EXAM MEASUREMENTS: Right Kidney: 11.6 x 5.02 x 4.8 cm Left Kidney: 11.7 x 4.1 x 5.6 cm Post Void Residual Volume: not assessed on inpatient with Hawk Catheter in bladder US exam is technically limited by scanning intercostally on ICU patient. Right Kidney: mid lateral cortical cyst = 1.1 x 1.2 x 0.7cm Left Kidney: mid pole at corticomedullary border is hyperechoic focus (small calcification)= 0.3 x 0. 2 x 0.2cm Bladder: Hawk Catheter is noted within There is no evidence for hydronephrosis at this point in time. IMPRESSION: 1. Right renal cortical cysts. 2. Nonobstructing calcification left kidney.
--- NOTE | 2019-09-27 15:02 | P.CNNES ---
History of Present Illness Consult date: 09/27/19 Requesting physician: Tiffany Caballero Reason for Consult: Possible Parkinson's History of Present Illness: Patient is a 79-year-old male with history of dementia was brought to the ER yesterday at 9:45 PM after he was found down lying naked, prone on the floor of his bedroom, found at home by his guardian. Patient's guardian is his nephews . He was seen normal earlier that day by his neighbor. She did go over to his house to check on him and he was found facedown. Unknown if the patient had fallen. Patient was conscious, alert and in mild distress as per EMS flow sheet. He was noted to be alert and oriented 3 with GCS of 14. He was following all directions and commands. It was uncertain how long he has been down on the floor. He had notable pressure ulcers to the the left side of his face, left lip sternum and both knees. He did not complain of pain on arrival. Denies any headache or visual change. No fever or chills. No nausea or vomiting. His vitals on arrival showed a blood pressure 120/92, pulse rate 80 and temperature 98.2. Patient underwent Computed tomography scan of head showed cerebral atrophy with no acute intracranial abnormality. CT of the cervical spine was negative for any fracture. Facial CT negative for any fracture of facial bones. Chest x-ray showed pulmonary mild fibrotic changes. No acute process. Normal heart. EKG shows normal sinus rhythm with sinus arrhythmia. Left anterior fascicular block. X-ray of the pelvis showed possible large bladder stone. X-ray of the wrist showed old fracture of the distal right radius and ulna. No acute fracture. Deformity of the left first metacarpal consistent with old injury. X-ray of the elbow negative bilateral elbow for any fracture. Patient's blood test shows WBC 25.3 hemoglobin 18.3, which has improved to 17.3 and 15.6 respectively. Platelets are 103. INR 1.3, sodium 133 potassium 6.2, which is n ow down to 3.6. BUN was 140, creatinine 6.64, which has improved to 102.86 respectively. AST mildly elevated 89, ALT 84. CPK is 2044, which has come down to 999. Troponin is mildly elevated 0.053. UA showed no infection. Previous hepatitis panel negative. Patient does take Aricept 5 mg, oxybutynin and tamsulosin. Patient tells me that he does not remember how long he was down. He states that he fell off the bed 2 times the same night. He states the bed is very high and he has 2 full mattresses. Prior to that he never had suffered from any falls. Patient underwent swallow study and he was noted to fail barium swallow. He was noted to have silent aspiration with some pooling. He was noted to have some tremors, which prompted neurology consultation to rule out Parkinson's. Patient denies any changes in his walking, changes in the size of his handwriting or problem with rising from the chair. Patient never smoked does not drink. He has no children. Review of Systems Complains of pain in the knees. Some aches and pains, myofascial pain from all the bruises. Denies any chest pain shortness of breath wheezing or cough. Denies double vision loss of vision hearing loss hoarseness, sore throat or dysphagia. He did fail swallow studies. All other review of systems unremarkable. Past Medical History Past Medical History: GERD/Reflux, Osteoarthritis (OA), Prostate Disorder Additional Past Medical History / Comment(s): Enlarged Prostate, "BLOOD IN THE URINE" History of Any Multi-Drug Resistant Organisms: None Reported Past Surgical History: Joint Replacement Additional Past Surgical History / Comment(s): Right knee replacement, esophageal ulcer surgery. Past Anesthesia/Blood Transfusion Reactions: No Reported Reaction Past Psychological History: No Psychological Hx Reported Smoking Status: Former smoker Past Alcohol Use History: Unable to Obtain Past Drug Use History: Unable to Obtain - Past Family History Mother Family Medical History: Cancer Father Family Medical History: Cancer Additional Family Medical History / Comment(s): LUNG CANCER Brother(s) Family Medical History: Cancer Additional Family Medical History / Comment(s): LUNG CANCER Medications and Allergies Home Medications Medication Instructions Recorded Confirmed Type Tamsulosin HCl [Flomax] 0.4 mg PO HS 07/19/16 09/27/19 History Donepezil HCl [Aricept] 5 mg PO BID 09/27/19 09/27/19 History Oxybutynin Chloride [Ditropan] 5 mg PO BID 09/27/19 09/27/19 History Allergies Allergy/AdvReac Type Severity Reaction Status Date / Time No Known Allergies Allergy Verified 09/27/19 10:44 Physical Examination - Vital Signs Vital Signs: Vital Signs Temp Pulse Resp BP Pulse Ox 09/27/19 04:00 97.4 F L 81 18 108/65 95 09/27/19 01:41 99.4 F 75 21 137/79 99 09/27/19 00:15 90 24 112/84 99 09/26/19 22:56 79 24 150/86 98 09/26/19 22:07 98.2 F 80 32 H 120/92 99 Intake and Output 09/26/19 09/27/19 09/27/19 22:59 06:59 14:59 Intake Total 2020 Output Total 2500 Balance -480 Intake: IV 2020 Sodium Chloride 0.9% 1, 520 000 ml @ 130 mls/hr IV . Q7H42M STEVE Rx#:[id number] Sodium Chloride 0.9% 1, 1000 000 ml @ 999 mls/hr IV . Q1H1M ONE Rx#:[id number] Sodium Chloride 0.9% 500 500 ml 500 ml @ 999 mls/hr IV .Q31M ONE Rx#:[id number] Output: Urine 2500 Other: Voiding Method Indwelling Catheter Weight 63.503 kg 63.503 kg 63.503 kg On examination patient is an elderly male, in no acute distress. He is alert and awake. He states it is June, and the year is 2024, but then changed to 2021. He states that he is in [facility] and knows his age of 79. Speech is mildly slurred, because of lip swelling, but no aphasia. On cranial examination pupils are round and reactive to light, visual kurtz are full on confrontation. Extraocular muscles are intact. Face is symmetric and tongue protrudes the midline. No tongue bite amna. He has multiple bruises over his cheek, lips, knees and hand. On cranial exam showed pupils are round and reactive to light, visual kurtz are full on confrontation. Extraocular muscles are intact with no nystagmus. Face is symmetric and tongue protrudes the midline. Palatal elevation and sensation normal. Hearing and shoulder shrug normal. On muscle strength testing there is no drift and the strength appears normal in the arms and legs. He did not give full effort because of aches and pains. Reflexes are 1+ and plantars are downgoing. Tone is mildly increased with cogwheeling. Mild tremors were noted at rest. No obvious ataxia for [id number] testing. Bulk of muscles normal. Gait deferred. Sensations are equal. There is no obvious bruit, S1 and S2 audible. Peripheral pulses present. Abdomen soft and tender, chest clear. Results - Laboratory Findings CBC and BMP: 09/27/19 04:20 09/27/19 04:20 Abnormal Lab Findings: Abnormal Labs 09/26/19 09/26/19 09/26/19 21:55 21:55 21:55 WBC 25.3 H Hgb 18.3 H Plt Count 137 L Neutrophils # 22.2 H Lymphocytes # 0.6 L Monocytes # 2.1 H PT 13.0 H INR 1.3 H Sodium 133 L Potassium 6.2 H* Chloride Carbon Dioxide 15 L BUN 140 H* Creatinine 6.64 H Glucose 165 H POC Glucose (mg/dL) Calcium AST 89 H ALT 84 H Creatine Kinase 2044 H* Troponin I Urine Protein Urine Blood Urine RBC Amorphous Sediment 09/26/19 09/27/19 09/27/19 23:48 01:42 04:20 WBC Hgb Plt Count Neutrophils # Lymphocytes # Monocytes # PT INR Sodium Potassium Chloride Carbon Dioxide BUN Creatinine Glucose POC Glucose (mg/dL) 144 H Calcium AST ALT Creatine Kinase Troponin I 0.053 H* Urine Protein Trace H Urine Blood Moderate H Urine RBC 6 H Amorphous Sediment Rare H 09/27/19 09/27/19 09/27/19 04:20 04:20 04:20 WBC 17.3 H Hgb Plt Count 103 L Neutrophils # 14.4 H Lymphocytes # 0.6 L Monocytes # 1.9 H PT INR Sodium Potassium Chloride 113 H Carbon Dioxide 17 L BUN 100 H Creatinine 2.86 H Glucose 131 H POC Glucose (mg/dL) Calcium 7.9 L AST ALT Creatine Kinase 999 H Troponin I Urine Protein Urine Blood Urine RBC Amorphous Sediment Assessment and Plan Assessment: * Status post fall/syncope with prolonged period of unawareness, and on being the floor. Exact cause is uncertain. Rule out syncope versus seizure. Rule out arrhythmia. * Acute renal insufficiency, rhabdomyolysis, hyperkalemia, all improving. Likely due to above. 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 * Mild cognitive impairment. Plan: * We will check carotid Doppler to rule out stenosis. * EEG to rule out epileptiform activity. * 2-D echo. * TSH, B12, folate. * We will follow.
--- NOTE | 2019-09-27 15:20 | P.HPIM ---
History of Present Illness 79-year-old pleasant gentleman, Poor historian and unable to get much history from the patient and the patient lives by himself and found facedown and patient admits to having a fall he is not sure whether patient had a syncopal episode is no loss of bowel or bladder continence. Does appear to have baseline dementia O oriented 2-3 presently. Patient is found to have elevated CPK, urine didn't show blood RBC her myoglobin. Patient is found to be in acute renal failure with head elevated DNA 100 and creatinine 6.64 his usual creatinine is within normal limits. Patient was admitted started on fluids patient has multiple bru ises all over the body all the imaging is negative for any fractures. There were multiple consults including neurology consult but there is no evidence of stroke of the physical exam is significantly limited by his inability to follow commands. CT of the cervical spine negative for fracture facial CT is negative for any facial bone fractures. Patient does have leukocytosis with highly elevated red blood cell count of 25,000. There is no evidence of infection because of which I'm discontinued and antibiotics chest x-ray did not show any pneumonia. Evidence Infection no fever. Bladder ultrasound showed some renal cysts Review of Systems REVIEW OF SYSTEMS: Rest of the review of systems is negative. Past Medical History Past Medical History: GERD/Reflux, Osteoarthritis (OA), Prostate Disorder Additional Past Medical History / Comment(s): Enlarged Prostate, "BLOOD IN THE URINE" History of Any Multi-Drug Resistant Organisms: None Reported Past Surgical History: Joint Replacement Additional Past Surgical History / Comment(s): Right knee replacement, esophageal ulcer surgery. Past Anesthesia/Blood Transfusion Reactions: No Reported Reaction Past Psychological History: No Psychological Hx Reported Smoking Status: Former smoker Past Alcohol Use History: Unable to Obtain Past Drug Use History: Unable to Obtain - Past Family History Mother Family Medical History: Cancer Father Family Medical History: Cancer Additional Family Medical History / Comment(s): LUNG CANCER Brother(s) Family Medical History: Cancer Additional Family Medical History / Comment(s): LUNG CANCER Medications and Allergies Home Medications Medication Instructions Recorded Confirmed Type Tamsulosin HCl [Flomax] 0.4 mg PO HS 07/19/16 09/27/19 History Donepezil HCl [Aricept] 5 mg PO BID 09/27/19 09/27/19 History Oxybutynin Chloride [Ditropan] 5 mg PO BID 09/27/19 09/27/19 History Allergies Allergy/AdvReac Type Severity Reaction Status Date / Time No Known Allergies Allergy Verified 09/27/19 10:44 Physical Exam Vitals: Vital Signs Temp Pulse Resp BP Pulse Ox 09/27/19 04:00 97.4 F L 81 18 108/65 95 09/27/19 01:41 99.4 F 75 21 137/79 99 09/27/19 00:15 90 24 112/84 99 09/26/19 22:56 79 24 150/86 98 09/26/19 22:07 98.2 F 80 32 H 120/92 99 Intake and Output 09/27/19 09/27/19 09/27/19 06:59 14:59 22:59 Intake Total 2020 Output Total 2500 Balance -480 Intake: IV 2020 Sodium Chloride 0.9% 1, 520 000 ml @ 130 mls/hr IV . Q7H42M STEVE Rx#:[id number] Sodium Chloride 0.9% 1, 1000 000 ml @ 999 mls/hr IV . Q1H1M ONE Rx#:[id number] Sodium Chloride 0.9% 500 500 ml 500 ml @ 999 mls/hr IV .Q31M ONE Rx#:[id number] Output: Urine 2500 Other: Voiding Method Indwelling Catheter Weight 63.503 kg 63.503 kg PHYSICAL EXAMINATION: GENERAL: The patient is alert and oriented x3, not in any acute distress. Well developed, well nourished. HEENT: Pupils are round and equally reacting to light. EOMI. No scleral icterus. No conjunctival pallor. Multiple bruises all over the face and body. No pharyngeal erythema. No thyromegaly. CARDIOVASCULAR: S1 and S2 present. No murmurs, rubs, or gallops. PULMONARY: Chest is clear to auscultation, no wheezing or crackles. ABDOMEN: Soft, nontender, nondistended, normoactive bowel sounds. No palpable organomegaly. MUSCULOSKELETAL: No joint swelling or deformity. EXTREMITIES: No cyanosis, clubbing, or pedal edema. NEUROLOGICAL: Unable to assess please refer to neurology documentation SKIN: No rashes. Results CBC & Chem 7: 09/27/19 04:20 09/27/19 04:20 Labs: Abnormal Lab Results - Last 24 Hours (Table) 09/26/19 09/26/19 09/26/19 Range/Units 21:55 21:55 21:55 WBC 25.3 H (3.8-10.6) k/uL Hgb 18.3 H (13.0-17.5) gm/dL Plt Count 137 L (150-450) k/uL Neutrophils # 22.2 H (1.3-7.7) k/uL Lymphocytes # 0.6 L (1.0-4.8) k/uL Monocytes # 2.1 H (0-1.0) k/uL PT 13.0 H (9.0-12.0) sec INR 1.3 H (<1.2) Sodium 133 L (137-145) mmol/L Potassium 6.2 H* (3.5-5.1) mmol/L Chloride (98-107) mmol/L Carbon Dioxide 15 L (22-30) mmol/L BUN 140 H* (9-20) mg/dL Creatinine 6.64 H (0.66-1.25) mg/dL Glucose 165 H (74-99) mg/dL POC Glucose (mg/dL) (75-99) mg/dL Calcium (8.4-10.2) mg/dL AST 89 H (17-59) U/L ALT 84 H (4-49) U/L Creatine Kinase 2044 H* (55-170) U/L Troponin I (0.000-0.034) ng/mL Urine Protein (Negative) Urine Blood (Negative) Urine RBC (0-5) /hpf Amorphous Sediment (None) /hpf 09/26/19 09/27/19 09/27/19 Range/Units 23:48 01:42 04:20 WBC (3.8-10.6) k/uL Hgb (13.0-17.5) gm/dL Plt Count (150-450) k/uL Neutrophils # (1.3-7.7) k/uL Lymphocytes # (1.0-4.8) k/uL Monocytes # (0-1.0) k/uL PT (9.0-12.0) sec INR (<1.2) Sodium (137-145) mmol/L Potassium (3.5-5.1) mmol/L Chloride (98-107) mmol/L Carbon Dioxide (22-30) mmol/L BUN (9-20) mg/dL Creatinine (0.66-1.25) mg/dL Glucose (74-99) mg/dL POC Glucose (mg/dL) 144 H (75-99) mg/dL Calcium (8.4-10.2) mg/dL AST (17-59) U/L ALT (4-49) U/L Creatine Kinase (55-170) U/L Troponin I 0.053 H* (0.000-0.034) ng/mL Urine Protein Trace H (Negative) Urine Blood Moderate H (Negative) Urine RBC 6 H (0-5) /hpf Amorphous Sediment Rare H (None) /hpf 09/27/19 09/27/19 09/27/19 Range/Units 04:20 04:20 04:20 WBC 17.3 H (3.8-10.6) k/uL Hgb (13.0-17.5) gm/dL Plt Count 103 L (150-450) k/uL Neutrophils # 14.4 H (1.3-7.7) k/uL Lymphocytes # 0.6 L (1.0-4.8) k/uL Monocytes # 1.9 H (0-1.0) k/uL PT (9.0-12.0) sec INR (<1.2) Sodium (137-145) mmol/L Potassium (3.5-5.1) mmol/L Chloride 113 H (98-107) mmol/L Carbon Dioxide 17 L (22-30) mmol/L BUN 100 H (9-20) mg/dL Creatinine 2.86 H (0.66-1.25) mg/dL Glucose 131 H (74-99) mg/dL POC Glucose (mg/dL) (75-99) mg/dL Calcium 7.9 L (8.4-10.2) mg/dL AST (17-59) U/L ALT (4-49) U/L Creatine Kinase 999 H (55-170) U/L Troponin I (0.000-0.034) ng/mL Urine Protein (Negative) Urine Blood (Negative) Urine RBC (0-5) /hpf Amorphous Sediment (None) /hpf Thrombosis Risk Factor Assmnt - Choose All That Apply Each Risk Factor Represents 3 Points: Age 75 years or older Thrombosis Risk Factor Assessment Total Risk Factor Score: 3 Thrombosis Risk Factor Assessment Level: Moderate Risk Assessment and Plan Plan: -Acute renal failure: Most probably secondary to severe intravascular volume depletion dehydration suspicion is low that patient has rhabdomyolysis and pigmentary injury to the tubules. Patient was started on IV fluids which will continue. Nephrology will evaluate the patient. Patient to probably has poor peripheral intake leading to prerenal azotemia and acute renal failure. -Elevated CK: Secondary to fall muscle injury CK is coming down is a 900s now -History of mild Parkinson's neurology evaluated the patient -Possible dementia senile or vascular dementia. -Past dysphagia and reflux disease Abdomen benign prostatic hypertrophy -Leukocytosis without any evidence of infection at this time we will monitor closely and discontinue antibiotics. -Elevated troponin no evidence of acute microinfarction elevation of troponin secondary to acute renal failure -Mildly elevated liver enzymes we'll repeat liver enzymes, it appeared to be nonspecific elevation -Benign prostatic hypertrophy -Gastroesophageal reflux disease -Generalized deconditioning and fall, rule out syncope and seizures EEG is pe nding PT and OT consultation
--- NOTE | 2019-09-27 16:03 | US ---
EXAMINATION TYPE: US carotid duplex BILAT DATE OF EXAM: 09/27/2019 COMPARISON: CT Brain CLINICAL HISTORY: Syncope versus seizure versus arrhythmia. Syncope versus seizure versus arrhythmia. EXAM MEASUREMENTS: RIGHT: Peak Systolic Velocity (PSV) cm/sec ----- Right CCA: 89.6 ----- Right ICA: 83.9 ----- Right ECA: 102.6 ICA/CCA ratio: 0.9 RIGHT: End Diastole cm/sec ----- Right CCA: 15.4 ----- Right ICA: 21.2 ----- Right ECA: 6.9 LEFT: Peak Systolic Velocity (PSV) cm/sec ----- Left CCA: 83.6 ----- Left ICA: 80.6 ----- Left ECA: 96.0 ICA/CCA ratio: 1.0 LEFT: End Diastole cm/sec ----- Left CCA: 12.4 ----- Left ICA: 22.3 ----- Left ECA: 5.9 VERTEBRALS (direction of flow): Right Vertebral: Antegrade Left Vertebral: Antegrade Rhythm: Normal Intimal thickening seen bilaterally. Hyperechoic plaque seen left ICA. No elevated velocities obtaine d at this time. No significant stenosis seen. Hypoechoic area with hyperechoic center seen left neck: 2.0 x 0.8 x 0.5 cm. IMPRESSION: No evidence for hemodynamically significant stenosis. Criteria for Assigning % of Stenosis / Diameter reduction (Estimation based on the indirect measurements of the internal carotid artery velocities (ICA PSV). 1. Normal (no stenosis)=ICA PSV < 125 cm/s: ratio < 2.0: ICA EDV<40 cm/s. 2. Less than 50% stenosis=ICA PSV < 125 cm/s: ratio < 2.0: ICA EDV<40 cm/s. 3. 50 to 69% stenosis=ICA PSV of 125 to 230 cm/s: ration 2.0 ? 4.0: ICA EDV 40-100 cm/s. 4. Greater than 70% stenosis to near occlusion= ICA PSV > 230 cm/s: ratio > 4.0: ICA EDV > 100 cm/s. 5. Near occlusion= ICA PSV velocities may be low or undetectable: variable ratio and ICA EDV. 6. Total occlusion=unable to detect flow.
--- NOTE | 2019-09-27 20:44 | CONS ---
CONSULTATION REASON FOR CONSULT: Renal failure. HISTORY OF PRESENT ILLNESS: The patient is an 79-year-old male who was brought in by his guardian when he found him on the floor. The guardian is the patient's nephew's . He was apparently seen the day before. The patient is not able to give a detailed history. He was noted to have pressure ulcers on the left side of his face, left hip and both knees. The patient denies any prior history of kidney diseases. Serum creatinine was 6.64 with a potassium of 6.2 and BUN of 140. Patient's blood pressure had not been significantly low. He has been maintained on IV fluids and currently has an indwelling Hawk catheter. The patient's creatinine is down to 2.86 today. He is feeling fairly well. PAST MEDICAL HISTORY: Past medical history is significant for BPH, gastroesophageal reflux disease, osteoarthritis. PAST SURGICAL HISTORY: Right knee arthroplasty, surgery for an esophageal ulcer, EGD. SOCIAL HISTORY: Patient is a former smoker. No history of drug abuse or alcohol abuse. MEDICATIONS: Medications at home included Flomax and Coumadin. REVIEW OF SYSTEMS: As per HPI. Other systems negative. PHYSICAL EXAMINATION: Patient is comfortable, awake. He is not in any acute distress. Blood pressure was 108/65, heart rate 81 per minute. He is afebrile. EXAMINATION OF THE HEART: S1 and S2. EXAMINATION OF LUNGS: Decreased breath sounds at bases. ABDOMEN: Soft, non-tender. Examination of lower extremities shows no significant edema. INFANT TEACHER exam shows patient is alert and oriented x2. He is moving all 4 extremities. LABS: Labs show sodium 140, potassium 3.6, chloride 113, CO2 17, BUN 100, creatinine 2.86, hemoglobin 15.6, white cell count 17.3. UA shows moderate blood, WBCs 1, trace protein. Chest x-ray shows mild pulmonary fibrotic changes. ASSESSMENT: 1. Acute kidney injury, mostly prerenal and possibly a component of urine retention. Patient currently has a Hawk catheter. It is unclear as to how much urine was obtained on initial Hawk catheter placement. I see 1300 charted. I am not sure if this is the initial urine obtained. Continue with IV fluids. Continue with the Hawk catheter for now. Check ultrasound of the kidneys. Avoid nephrotoxic agents and repeat labs in a.m. Continue with the Flomax. 2. Status post fall. CK was 2044. It is now down to 999. 3. Hyperkalemia associated with acute kidney injury and metabolic acidosis, currently improved. 4. Anion gap metabolic acidosis secondary to renal failure, currently improved with improving renal function. PLAN: Continue with normal saline. Check ultrasound of the kidneys. Continue with Flomax. Avoid nephrotoxic agents and repeat labs in a.m. Continue empiric antibiotics. Thank you for this consultation. Will continue to follow the patient with you during his hospitalization. MMODL / IJN: [id number] /
[2019-09-27] MEDS: TAMSULOSIN 0.4 MG CAP.ER.24H PO SCH (20:47)
[2019-09-27] MEDS: HEPARIN SODIUM,PORCINE 5,000 UNIT/ML 1 ML VIAL SQ SCH (20:47)
[2019-09-27] MEDS: OXYBUTYNIN CHLORIDE 5 MG TAB PO SCH (20:48)
[2019-09-27] MEDS ORDERED: FAMOTIDINE 20 MG TAB PO SCH ×2 (21:00)
[2019-09-28 00:04] LABS: Folate, Serum 23.7 ng/mL
[2019-09-28 05:17] LABS: HCT 38.8 % (39.0-53.0); HGB 13.2 gm/dL (13.0-17.5); MCH 30.8 pg (25.0-35.0); MCV 90.7 fL (80.0-100.0); Mean Platelet Volume 8.2; RBC 4.28 m/uL (4.30-5.90); RDW 13.1 % (11.5-15.5); WBC 7.4 k/uL (3.8-10.6)
[2019-09-28 05:28] LABS: ALT 48 U/L (4-49); AST 45 U/L (17-59); African American GFR (CKD) >90 (>60 ml/min/1.73 sqM); Albumin 2.4 g/dL (3.5-5.0); Alkaline Phosphatase 48 U/L (38-126); Anion Gap 0 mmol/L; Blood Urea Nitrogen 24 mg/dL (9-20); Calcium 7.9 mg/dL (8.4-10.2); Carbon Dioxide 24 mmol/L (22-30); Chloride 122 mmol/L (98-107); Glucose 114 mg/dL (74-99); Non-African American GFR(CKD) >90 (>60 ml/min/1.73 sqM); Potassium 3.9 mmol/L (3.5-5.1); Sodium 146 mmol/L (137-145); Total Bilirubin 0.9 mg/dL (0.2-1.3); Total Protein 4.4 g/dL (6.3-8.2)
[2019-09-28 05:49] LABS: Platelet Count 88 k/uL (150-450)
[2019-09-28] MEDS ORDERED: TAMSULOSIN 0.4 MG CAP.ER.24H PO SCH (08:30)
[2019-09-28] MEDS: HEPARIN SODIUM,PORCINE 5,000 UNIT/ML 1 ML VIAL SQ SCH ×2 (10:57→21:30)
[2019-09-28] MEDS: OXYBUTYNIN CHLORIDE 5 MG TAB PO SCH ×2 (10:57→21:30)
[2019-09-28] MEDS: FAMOTIDINE 20 MG TAB PO SCH ×2 (10:57→21:30)
--- NOTE | 2019-09-28 11:44 | P.PN ---
Subjective Progress Note Date: 09/28/19 CHIEF COMPLAINT: Fall HISTORY OF PRESENT ILLNESS: Patient examined this morning with Dr. Bonds. He is sitting up in the chair. Pain tolerable. Tolerating diet. Vital signs stable. He is afebrile.WBC 7.4. Hemoglobin 13.2. K 3.9 Creatinine 0.60 PHYSICAL EXAM: VITAL SIGNS: Reviewed GENERAL: Well-developed in no acute distress. HEENT: No sclera icterus. Extraocular movements grossly intact. Moist buccal mucosa. Head is normocephalic. Hears conversational speech. No nasal drainage. NECK: Supple without lymphadenopathy. CHEST: Non-labored respirations and equal bilateral excursions. CARDIOVASCULAR: Regular rate with regular rhythm. Palpable 2+ radial pulses. ABDOMEN: Soft. Nondistended. Nontender MUSCULOSKELETAL: No clubbing or cyanosis. NEUROLOGIC: No focal or lateralizing signs. Cranial nerves II through XII grossly intact. PSYCH: Appropriate affect. Alert and oriented x 1-2 SKIN: Well perfused. Good skin turgor. Multiple pressure ulcers throughout body which are suspected due to laying on the floor for an unknown period of time ASSESSMENT: 1. Fall 2. Rhabdomyolysis 3. Acute renal failure 4. Hyperkalemia 5. Leukocytosis PLAN: -Continue medical management per Dr. Arias -Nephrology on consult for ARABELLA -Continue diet as tolerated -Recommend bacitracin ointment to left cheek abrasion BID -No surgical intervention recommended -We will sign off. Please re-consult if needed Nurse practitioner note has been reviewed by physician. Signing provider agrees with the documented findings, assessment, and plan of care. Objective - Vital Signs Vital signs: Vital Signs Temp 98.5 F 09/28/19 08:00 Pulse 70 09/28/19 10:00 Resp 23 09/28/19 10:00 BP 134/80 09/28/19 10:00 Pulse Ox 97 09/28/19 10:00 Intake & Output 09/27/19 09/28/19 09/28/19 18:59 06:59 18:59 Intake Total 600 300 200 Output Total 1800 1100 245 Balance -1200 -800 -45 Weight 63.503 kg 67.8 kg Intake: IV 600 300 200 Sodium Chloride 0.9% 1, 600 300 200 000 ml @ 100 mls/hr IV . Q10H STEVE Rx#:[id number] Output: Urine 1800 1100 245 Other: Voiding Method Indwelling Catheter Indwelling Catheter Indwelling Catheter - Labs CBC & Chem 7: 09/28/19 04:26 09/28/19 04:26 Labs: Abnormal Lab Results - Last 24 Hours (Table) 09/27/19 09/28/19 09/28/19 Range/Units 04:20 04:26 04:26 RBC 4.28 L (4.30-5.90) m/uL Hct 38.8 L (39.0-53.0) % Plt Count 88 L (150-450) k/uL Sodium 146 H (137-145) mmol/L Chloride 122 H (98-107) mmol/L BUN 24 H (9-20) mg/dL Creatinine 0.60 L (0.66-1.25) mg/dL Glucose 114 H (74-99) mg/dL Calcium 7.9 L (8.4-10.2) mg/dL Total Protein 4.4 L (6.3-8.2) g/dL Albumin 2.4 L (3.5-5.0) g/dL Vitamin B12 972.0 H (200.0-944.0) pg/mL Microbiology - Last 24 Hours (Table) 09/26/19 23:10 Blood Culture - Preliminary Blood No Growth after 24 hours
--- NOTE | 2019-09-28 13:12 | ECHOF ---
Referral Reason:Syncope versus seizure versus arrhythmia MEASUREMENTS -------- HEIGHT: 172.7 cm WEIGHT: 63.5 kg BP: 108/65 RVIDd: 3.9 cm (< 3.3) IVSd: 1.5 cm (0.6 - 1.1) LVIDd: 4.0 cm (3.9 - 5.3) LVPWd: 1.3 cm (0.6 - 1.1) IVSs: 1.9 cm LVIDs: 2.9 cm LVPWs: 2.0 cm LAESV Index (A-L): 20.19 ml/m Ao Diam: 3.3 cm (2.0 - 3.7) AV Cusp: 1.9 cm (1.5 - 2.6) MV EXCURSION: 23.601 mm (> 18.000) MV EF SLOPE: 71 mm/s (70 - 150) EPSS: 0.7 cm MV E Juan Antonio: 0.58 m/s MV DecT: 299 ms MV A Juan Antonio: 0.69 m/s MV E/A Ratio: 0.85 RAP: 5.00 mmHg RVSP: 18.61 mmHg FINDINGS -------- Sinus rhythm. This was a technically adequate study. The left ventricular size is normal. There is moderate concentric left ventricular hypertrophy. T here is normal global left ventricular contractility. Overall left ventricular systolic function is normal with, an EF between 55 - 60 %. The diastolic filling pattern is normal for the age of the p atient 8.82. The right ventricle is mild to moderately enlarged. Normal LA size by volume 22+/-6 ml/m2. The right atrium was not well visualized. Interatrial and interventricular septum intact. Aneurysmal Interatrial septum. The aortic valve is trileaflet, and appears structurally normal. No aortic stenosis or regurgitation. The mitral valve leaflets are mild to moderately thickened. Mild mitral regurgitation is present. The tricuspid valve appears structurally normal. Mild tricuspid regurgitation present. There is n o evidence of pulmonary hypertension. The right ventricular systolic pressure, as measured by Doppl er, is 18.61mmHg. There is no pulmonic regurgitation present. The aortic root size is normal. IVC Not well visulized. There is no pericardial effusion. CONCLUSIONS -------- 1. There is moderate concentric left ventricular hypertrophy. 2. Overall left ventricular systolic function is normal with, an EF between 55 - 60 %. 3. The diastolic filling pattern is normal for the age of the patient 8.82 4. The right ventricle is mild to moderately enlarged. 5. Normal LA size by volume 22+/-6 ml/m2. 6. Interatrial and interventricular septum intact. 7. Aneurysmal Interatrial septum. 8. The aortic valve is trileaflet, and appears structurally normal. No aortic stenosis or regurgitati on. 9. The mitral valve leaflets are mild to moderately thickened. 10. Mild mitral regurgitation is present. 11. Mild tricuspid regurgitation present. 12. There is no pulmonic regurgitation present. 13. There is no pericardial effusion. MECHANICS SUPERVISOR: Olinda Woodard RDCS
--- NOTE | 2019-09-28 14:18 | EEG ---
ELECTROENCEPHALOGRAM REPORT DATE OF SERVICE: 09/28/2019 PREAMBLE: This is an 79-year-old male, who was found with decreased responsiveness, found on the floor with prolonged postictal state. This study is performed to evaluate for any epileptiform activity. EEG FINDINGS: This is a 21 channel routine EEG recording, utilizing 10/20 international system with referential and bipolar montages. The background consists of well-developed, moderately well regulated, mixed frequencies of 8 hertz alpha, with some moderate voltage, mixed delta and some theta activity seen in bihemispheric region. Background seems to be mildly reactive to eye opening and closing. Photic driving response was not seen. Different stages of sleep were not seen. No focal or generalized epileptiform activity was seen. IMPRESSION: This is an abnormal EEG due to the background slowing of mild to moderate degree. This is suggestive of generalized cerebral dysfunction as can be seen with toxic metabolic encephalopathy or due to diffuse structural brain abnormality. Clinical correlation is recommended. No epileptiform activity was seen. MMODL / IJN: [id number] /
--- NOTE | 2019-09-28 14:38 | PN ---
PROGRESS NOTE Patient is seen for followup for acute kidney injury. His renal function has improved significantly with creatinine down to 0.6 from 6.6 on initial admission. Patient has an indwelling Hawk catheter. He is also maintained on IV fluids. A 24 hour urine output about 2.9 L. PHYSICAL EXAMINATION: On examination today, patient is sitting up in a bedside chair. He is comfortable. Denies any significant complaints. Blood pressure is 120/74, heart rate 82 per minute, he is afebrile. Examination of the heart S1, S2. Examination of the lungs, bilateral breath sounds are heard. Abdomen is soft, nontender. Examination of the lower extremities shows no significant edema. ASSISTANT KITCHEN MANAGER exam grossly intact. LABS: Show sodium 146, potassium 3.9, chloride 122, BUN 24, creatinine 0.6, hemoglobin 13.2 g/dL. ASSESSMENT: 1. Acute kidney injury, prerenal and ATN associated with sepsis hypoperfusion, hypovolemia, possible urine retention as well, currently improved. Patient has a Hawk catheter. Serum creatinine down to 0.6 mg/dL. 2. Mild hypernatremia. I will change IV fluids to half-normal saline. 3. Status post fall with mild rhabdomyolysis, currently improving. 4. Hyperkalemia associated with acute kidney injury, metabolic acidosis, now improved. 5. Anion gap metabolic acidosis secondary to renal failure, currently resolved. PLAN: Change IV fluids to half-normal saline. Continue with the Flomax. Encourage increased oral intake, avoid nephrotoxic medications. MMODL / IJN: [id number] /
[2019-09-28] MEDS: SODIUM CHLORIDE 0.45% 1,000 ML IV SCH (15:44)
--- NOTE | 2019-09-28 15:58 | P.PN ---
Subjective 79-year-old admitted after a fall. Patient is being treated for acute renal failure patient the creatinine normalized to around 0.8 today patient's IV fluids are being changed to half-normal saline. Patient appears to have hypotension related possible syncope and hypotension related acute tubular necrosis. Patient was a valid by neurology patient does have some delirium patient probably has some baseline dementia and this delirium is secondary to hospitalization patient will be started onlow-dose Seroquel with close monitoring of QTpatient underwent stroke workup echocardiogram showed normal ejection fraction no significant valvular abnormalities carotid Doppler within normal limits EEG is consistent with the metabolic and toxic encephalopathy which is again secondary to acute renal failure. Patient will be transferred out of ICU to [facility] floor. review of systems: Unreliable patient is confused All inpatient medications were reviewed and appropriate changes in these medications as dictated in the interval history and assessment and plan. Objective - Vital Signs Vital signs: Vital Signs Temp 98.2 F 09/28/19 12:00 Pulse 81 09/28/19 14:00 Resp 20 09/28/19 14:00 BP 118/42 09/28/19 12:00 Pulse Ox 93 L 09/28/19 14:00 Intake & Output 09/27/19 09/28/19 09/28/19 18:59 06:59 18:59 Intake Total 600 300 350 Output Total 1800 1100 385 Balance -1200 -800 -35 Weight 63.503 kg 67.8 kg Intake: IV 600 300 300 Sodium Chloride 0.9% 1, 600 300 300 000 ml @ 100 mls/hr IV . Q10H [facility] Rx#:[id number] Oral 50 Output: Urine 1800 1100 385 Other: Voiding Method Indwelling Catheter Indwelling Catheter Indwelling Catheter - Exam PHYSICAL EXAMINATION: GENERAL: The patient is alert and oriented x1-2, confused delirious, not in any acute distress. Well developed, well nourished. HEENT: Pupils are round and equally reacting to light. EOMI. No scleral icterus. No conjunctival pallor. Multiple bruises all over the face and body. No pharyngeal erythema. No thyromegaly. CARDIOVASCULAR: S1 and S2 present. No murmurs, rubs, or gallops. PULMONARY: Chest is clear to auscultation, no wheezing or crackles. ABDOMEN: Soft, nontender, nondistended, normoactive bowel sounds. No palpable organomegaly. MUSCULOSKELETAL: No joint swelling or deformity. EXTREMITIES: No cyanosis, clubbing, or pedal edema. NEUROLOGICAL: Unable to assess please refer to neurology documentation SKIN: No rashes. - Labs CBC & Chem 7: 09/28/19 04:26 09/28/19 04:26 Labs: Abnormal Lab Results - Last 24 Hours (Table) 09/27/19 09/28/19 09/28/19 Range/Units 04:20 04:26 04:26 RBC 4.28 L (4.30-5.90) m/uL Hct 38.8 L (39.0-53.0) % Plt Count 88 L (150-450) k/uL Sodium 146 H (137-145) mmol/L Chloride 122 H (98-107) mmol/L BUN 24 H (9-20) mg/dL Creatinine 0.60 L (0.66-1.25) mg/dL Glucose 114 H (74-99) mg/dL Calcium 7.9 L (8.4-10.2) mg/dL Total Protein 4.4 L (6.3-8.2) g/dL Albumin 2.4 L (3.5-5.0) g/dL Vitamin B12 972.0 H (200.0-944.0) pg/mL Microbiology - Last 24 Hours (Table) 09/26/19 23:10 Blood Culture - Preliminary Blood No Growth after 24 hours Assessment and Plan Plan: -Acute renal failure: Most probably secondary to severe intravascular volume depletion dehydration, or acute purulent necrosis related to hypertension suspicion is low that patient has rhabdomyolysis and pigmentary injury to the tubules. nephrology evaluated the patient patient creatinine normalized patient's IV fluids were changed to half-normal saline because of hypernatremia and hyperchloremia -Elevated CK: Secondary to fall muscle injury CK is coming down -History of mild Parkinson's neurology evaluated the patient -Possible dementia senile or vascular dementia. -Past dysphagia and reflux disease Abdomen benign prostatic hypertrophy -Leukocytosis without any evidence of infection at this time we will monitor closely and discontinue antibiotics.patient's leukocytosis improved -Elevated troponin no evidence of acute microinfarction elevation of troponin secondary to acute renal failure -Mildly elevated liver enzymes we'll repeat liver enzymes, it appeared to be nonspecific elevation, repeat your liver enzymes are within normal limits -Benign prostatic hypertrophy -Gastroesophageal reflux disease -Generalized deconditioning and fall, rule out syncope and seizures EEG is pending PT and OT consultation
--- NOTE | 2019-09-28 16:01 | P.PN ---
Subjective Progress Note Date: 09/28/19 Patient states he is feeling better than yesterday. Patient however continues to be confused. Offers no new complaints. Slightly delirious, mildly hallucinating. Patient rambles. Denies headache. Objective - Vital Signs Vital signs: Vital Signs Temp 98.5 F 09/28/19 08:00 Pulse 70 09/28/19 10:00 Resp 23 09/28/19 10:00 BP 134/80 09/28/19 10:00 Pulse Ox 97 09/28/19 10:00 Intake & Output 09/27/19 09/28/19 09/28/19 18:59 06:59 18:59 Intake Total 600 300 200 Output Total 1800 1100 245 Balance -1200 -800 -45 Weight 63.503 kg 67.8 kg Intake: IV 600 300 200 Sodium Chloride 0.9% 1, 600 300 200 000 ml @ 100 mls/hr IV . Q10H [facility] Rx#:[id number] Output: Urine 1800 1100 245 Other: Voiding Method Indwelling Catheter Indwelling Catheter Indwelling Catheter - Exam Patient is alert and awake. Patient is sitting in the recliner. [place] but then he said he is in [facility] in [facility]. He thinks it is July or August and the year is 2001. Patient's visual kurtz are full. Face is symmetric. Muscle strength is normal. Patient continues to have mild tremors of his outstretched hands. - Labs CBC & Chem 7: 09/28/19 04:26 09/28/19 04:26 Labs: Abnormal Lab Results - Last 24 Hours (Table) 09/27/19 09/28/19 09/28/19 Range/Units 04:20 04:26 04:26 RBC 4.28 L (4.30-5.90) m/uL Hct 38.8 L (39.0-53.0) % Plt Count 88 L (150-450) k/uL Sodium 146 H (137-145) mmol/L Chloride 122 H (98-107) mmol/L BUN 24 H (9-20) mg/dL Creatinine 0.60 L (0.66-1.25) mg/dL Glucose 114 H (74-99) mg/dL Calcium 7.9 L (8.4-10.2) mg/dL Total Protein 4.4 L (6.3-8.2) g/dL Albumin 2.4 L (3.5-5.0) g/dL Vitamin B12 972.0 H (200.0-944.0) pg/mL Microbiology - Last 24 Hours (Table) 09/26/19 23:10 Blood Culture - Preliminary Blood No Growth after 24 hours Assessment and Plan Assessment: * Status post fall/syncope with prolonged period of unawareness, and being on the floor. Exact cause is uncertain. Rule out syncope versus seizure. Rule out arrhythmia. * Acute metabolic encephalopathy, likely due to Acute renal insufficiency, rhabdomyolysis, hyperkalemia, all improving. 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 * Mild cognitive impairment. Plan: * Carotid Doppler revealed no significant ICA stenosis. * EEG revealed moderate background slowing, consistent with encephalopathy. No epileptiform activity was seen. * 2-D echo revealed moderate concentric LVH. EF is between 55-60%. Normal left atrial size. Interatrial and interventricular septum intact. Aneurysmal interatrial septum.. * TSH 1.95, B12 972, folate 23.7, all normal. * Patient's metabolic meters are improving. Renal function is almost back to n ormal. Patient is currently hypernatremic. * Patient was on Aricept 5 mg daily. Consider resuming it * Start thiamine 100 mg daily.
[2019-09-28] MEDS: BACITRACIN 500 UNIT/GM OINT 28.4 GM TUBE TOPICAL SCH ×2 (18:42→21:40)
[2019-09-28] MEDS: THIAMINE 100 MG TAB PO SCH (18:43)
[2019-09-28] MEDS: SODIUM CHLORIDE 0.9% 1,000 ML IV SCH (19:56)
[2019-09-28] MEDS: DONEPEZIL 5 MG TAB PO SCH (21:29)
[2019-09-28] MEDS: QUEtiapine 25 MG TAB PO PRN (21:29)
[2019-09-28] MEDS: TAMSULOSIN 0.4 MG CAP.ER.24H PO SCH (21:30)
[2019-09-29] MEDS: SODIUM CHLORIDE 0.45% 1,000 ML IV SCH ×2 (02:21→14:38)
[2019-09-29 05:15] LABS: African American GFR (CKD) >90 (>60 ml/min/1.73 sqM); Anion Gap 0 mmol/L; Blood Urea Nitrogen 19 mg/dL (9-20); Calcium 7.5 mg/dL (8.4-10.2); Carbon Dioxide 24 mmol/L (22-30); Chloride 118 mmol/L (98-107); Glucose 90 mg/dL (74-99); Non-African American GFR(CKD) >90 (>60 ml/min/1.73 sqM); Potassium 3.3 mmol/L (3.5-5.1); Sodium 142 mmol/L (137-145)
[2019-09-29] MEDS ORDERED: Potassium Replacement Protocol 1 EACH MISC MISCELLANE PRN (05:26)
[2019-09-29] MEDS: POTASSIUM CHLORIDE 10 MEQ in WATER FOR INJECTION 1 100ML.BAG IVPB SCH ×4 (05:59→12:58)
[2019-09-29] MEDS: DONEPEZIL 5 MG TAB PO SCH (08:54)
[2019-09-29] MEDS: THIAMINE 100 MG TAB PO SCH (08:54)
[2019-09-29] MEDS: HEPARIN SODIUM,PORCINE 5,000 UNIT/ML 1 ML VIAL SQ SCH ×2 (08:54→23:35)
[2019-09-29] MEDS: FAMOTIDINE 20 MG TAB PO SCH ×2 (08:54→23:35)
[2019-09-29] MEDS: BACITRACIN 500 UNIT/GM OINT 28.4 GM TUBE TOPICAL SCH ×2 (08:55→23:34)
[2019-09-29] MEDS: OXYBUTYNIN CHLORIDE 5 MG TAB PO SCH ×2 (08:55→23:35)
--- NOTE | 2019-09-29 13:17 | P.PN ---
Subjective 79-year-old admitted after a fall. Patient is being treated for acute renal failure patient the creatinine normalized to around 0.8 today patient's IV fluids are being changed to half-normal saline. Patient appears to have hypotension related possible syncope and hypotension related acute tubular necrosis. Patient was a valid by neurology patient does have some delirium patient probably has some baseline dementia and this delirium is secondary to hospitalization patient will be started onlow-dose Seroquel with close monitoring of QTpatient underwent stroke workup echocardiogram showed normal ejection fraction no significant valvular abnormalities carotid Doppler within normal limits EEG is consistent with the metabolic and toxic encephalopathy which is again secondary to acute renal failure. Patient will be transferred out of ICU to [facility]. 09/29/2019 Patient occasionally is confused and did fall last night. Patient has a sitter because of his fall although patient is presently confused patient is on Seroquel and as needed basis for agitation which helped him sleep last night. Patient had low-grade fever because of which obtained a septic workup with blood culture, urinalysis and urine culture chest x-ray review of systems: Unreliable patient is confused All inpatient medications were reviewed and appropriate changes in these medications as dictated in the interval history and assessment and plan. Objective - Vital Signs Vital signs: Vital Signs Temp 100.2 F H 09/29/19 08:00 Pulse 65 09/29/19 08:00 Resp 18 09/29/19 08:00 BP 90/52 09/29/19 08:00 Pulse Ox 96 09/29/19 08:00 Intake & Output 09/28/19 09/29/19 09/29/19 18:59 06:59 18:59 Intake Total 450 2265 1150 Output Total 540 1265 290 Balance -90 1000 860 Weight 67.2 kg 67.2 kg Intake: IV 400 825 450 Sodium Chloride 0.45% 1, 825 450 000 ml @ 75 mls/hr IV . [id number] [facility] Rx#:[id number] Sodium Chloride 0.9% 1, 400 000 ml @ 100 mls/hr IV . Q10H [facility] Rx#:[id number] Intake, IV Titration 200 Amount Potassium Chloride 10 meq 200 In Water For Injection 1 100ml.bag @ 100 mls/hr IVPB Q1HR [facility] Rx#: [id number] Oral 50 1440 500 Output: Urine 540 1265 290 Other: Voiding Method Indwelling Catheter Indwelling Catheter Indwelling Catheter - Exam PHYSICAL EXAMINATION: GENERAL: The patient is alert and oriented x1-2, confused delirious, not in any acute distress. Well developed, well nourished. HEENT: Pupils are round and equally reacting to light. EOMI. No scleral icterus. No conjunctival pallor. Multiple bruises all over the face and body. No pharyngeal erythema. No thyromegaly. CARDIOVASCULAR: S1 and S2 present. No murmurs, rubs, or gallops. PULMONARY: Chest is clear to auscultation, no wheezing or crackles. ABDOMEN: Soft, nontender, nondistended, normoactive bowel sounds. No palpable organomegaly. MUSCULOSKELETAL: No joint swelling or deformity. EXTREMITIES: No cyanosis, clubbing, or pedal edema. NEUROLOGICAL: Unable to assess please refer to neurology documentation SKIN: No rashes. - Labs CBC & Chem 7: 09/28/19 04:26 09/29/19 04:21 Labs: Abnormal Lab Results - Last 24 Hours (Table) 09/29/19 Range/Units 04:21 Potassium 3.3 L (3.5-5.1) mmol/L Chloride 118 H (98-107) mmol/L Creatinine 0.55 L (0.66-1.25) mg/dL Calcium 7.5 L (8.4-10.2) mg/dL Microbiology - Last 24 Hours (Table) 09/26/19 23:10 Blood Culture - Preliminary Blood No Growth after 48 hours Assessment and Plan Plan: -Acute renal failure: Most probably secondary to severe intravascular volume depletion dehydration, or acute purulent necrosis related to hypertension suspicion is low that patient has rhabdomyolysis and pigmentary injury to the tubules. nephrology evaluated the patient patient creatinine normalized patie nt's IV fluids were changed to half-normal saline because of hypernatremia and hyperchloremia , and creatinine continue to improve -Low-grade fever patient will be monitored for more episodes of fever and septic workup will be obtained as mentioned above patient not be started on antibiotics -Elevated CK: Secondary to fall muscle injury CK is coming down -History of mild Parkinson's neurology evaluated the patient -Possible dementia senile or vascular dementia. -Gastroesophageal reflux disease - benign prostatic hypertrophy -Leukocytosis without any evidence of infection at this time we will monitor closely and discontinue antibiotics.patient's leukocytosis improved -Elevated troponin no evidence of acute microinfarction elevation of troponin secondary to acute renal failure -Mildly elevated liver enzymes we'll repeat liver enzymes, it appeared to be nonspecific elevation, repeat your liver enzymes are within normal limits -Benign prostatic hypertrophy -Gastroesophageal reflux disease -Generalized deconditioning and fall, ruled out syncope and seizures EEG is pending, patient will need the placement
--- NOTE | 2019-09-29 15:35 | PN ---
PROGRESS NOTE Patient is seen for followup for acute kidney injury. He is currently doing quite well. Renal function has improved significantly, with creatinine down to 0.5 mg/dL. No significant complaints today. PHYSICAL EXAMINATION: On examination, patient is comfortable, awake. Blood pressure is 96/64, heart rate 84 per minute. He is afebrile. EXAMINATION OF THE HEART: S1 and S2. EXAMINATION OF LUNGS: Decreased breath sounds at bases. ABDOMEN: Soft, non-tender. Examination of lower extremities shows no significant edema. 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 LABS: Labs show sodium 142, potassium 3.3, chloride 118. CO2 is 24, BUN 19, creatinine 0.5 mg/dL. ASSESSMENT: 1. Acute kidney injury secondary to hypotension, hypoperfusion, currently improved. Possibly an element of urine retention as well. Creatinine is down to 0.5. 2. Mild hypernatremia with IV fluids changed to half-normal saline yesterday, currently improved. 3. Status post fall with mild rhabdomyolysis, improved. 4. Hyperkalemia associated with acute kidney injury, metabolic acidosis, now resolved. 5. Anion gap metabolic acidosis secondary to renal failure, now resolved. 6. Hypokalemia associated with decreased oral intake, status post replacement. PLAN: Decrease IV fluids. Continue with Flomax. Replace potassium. Encourage increased oral intake. MMODL / IJN: [id number] /
--- NOTE | 2019-09-29 16:02 | P.PN ---
Subjective Progress Note Date: 09/29/19 Patient states he is feeling better than yesterday. Patient is laying comfortably in the bed. Now he has vest restrain. Patient however continues to be confused. Offers no new complaints. According to the nursing report, patient fell off the bed on the face yesterday. Did not suffer from any signifi cant injury. Denies headache. Objective - Vital Signs Vital signs: Vital Signs Temp 100.2 F H 09/29/19 08:00 Pulse 65 09/29/19 08:00 Resp 18 09/29/19 08:00 BP 90/52 09/29/19 08:00 Pulse Ox 96 09/29/19 08:00 Intake & Output 09/28/19 09/29/19 09/29/19 18:59 06:59 18:59 Intake Total 450 2265 1150 Output Total 540 1265 290 Balance -90 1000 860 Weight 67.2 kg 67.2 kg Intake: IV 400 825 450 Sodium Chloride 0.45% 1, 825 450 000 ml @ 75 mls/hr IV . [id number] [facility] Rx#:[id number] Sodium Chloride 0.9% 1, 400 000 ml @ 100 mls/hr IV . Q10H [facility] Rx#:[id number] Intake, IV Titration 200 Amount Potassium Chloride 10 meq 200 In Water For Injection 1 100ml.bag @ 100 mls/hr IVPB Q1HR [facility] Rx#: [id number] Oral 50 1440 500 Output: Urine 540 1265 290 Other: Voiding Method Indwelling Catheter Indwelling Catheter Indwelling Catheter - Exam Patient is alert and awake. Patient is laying in the bed. He states it's September and the year is 2021. He knows that he is in [facility]. Patient's visual kurtz are full. Face is symmetric. Muscle strength is normal. - Labs CBC & Chem 7: 09/28/19 04:26 09/29/19 04:21 Labs: Abnormal Lab Results - Last 24 Hours (Table) 09/29/19 Range/Units 04:21 Potassium 3.3 L (3.5-5.1) mmol/L Chloride 118 H (98-107) mmol/L Creatinine 0.55 L (0.66-1.25) mg/dL Calcium 7.5 L (8.4-10.2) mg/dL Microbiology - Last 24 Hours (Table) 09/26/19 23:10 Blood Culture - Preliminary Blood No Growth after 48 hours Assessment and Plan Assessment: * Status post fall/syncope with prolonged period of unawareness, and being on the floor. Exact cause is uncertain. Rule out syncope versus seizure. Rule out arrhythmia. * Acute metabolic encephalopathy, likely due to Acute renal insufficiency, rhabdomyolysis, hyperkalemia, all improving. 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 * Mild cognitive impairment. Plan: * Carotid Doppler revealed no significant ICA stenosis. * EEG revealed moderate background slowing, consistent with encephalopathy. No epileptiform activity was seen. * 2-D echo revealed moderate concentric LVH. EF is between 55-60%. Normal left atrial size. Interatrial and interventricular septum intact. Aneurysmal interatrial septum.. * TSH 1.95, B12 972, folate 23.7, all normal. * Renal function is back to normal. * Continue Aricept. Patient placed on Aricept 5 mg twice a day. We will change it to 10 mg at bedtime. * Start thiamine 100 mg daily. * Consider Holter monitoring/event monitoring to rule out arrhythmia. * Neurologically clear.
[2019-09-29 16:38] LABS: Appearance,Urine Cloudy (Clear); Bacteria,Urine Occasional /hpf; Bilirubin,Urine Negative (Negative); Blood,Urine Moderate (Negative); Color,Urine Yellow; Glucose,Urine (UA) Negative (Negative); Hyaline Casts,Urine 4 /lpf (0-2); Hyphae Yeast, Urine Rare /hpf; Ketones,Urine Negative (Negative); Leukocyte Esterase,Urine Moderate (Negative); Mucus,Urine Few /hpf; Nitrite,Urine Negative (Negative); PH, Urine 5.5 (5.0-8.0); Protein,Urine Trace (Negative); RBC,Urine >182 /hpf (0-5); Specific Gravity,Urine 1.019 (1.001-1.035); Squamous Epithelial Cell,Urine <1 /hpf (0-4); Urobilinogen,Urine <2.0 mg/dL (<2.0); WBC,Urine 31 /hpf (0-5)
--- NOTE | 2019-09-29 16:45 | XR ---
EXAMINATION TYPE: XR chest 2V DATE OF EXAM: 09/29/2019 COMPARISON: 09/26/2019 HISTORY: Altered mental status TECHNIQUE: 2 views FINDINGS: There is some patchy linear density at the lung bases. There is no heart failure. Heart is enlarged. Thoracic aorta is atheromatous. There is no pleural effusion. IMPRESSION: There is some mild atelectasis at the lung bases increased compared to old exam. Cardiome clari. No heart failure.
[2019-09-29] MEDS ORDERED: DONEPEZIL 10 MG TAB PO SCH (21:00)
--- NOTE | 2019-09-29 22:39 | P.PN ---
Subjective Progress Note Date: 09/29/19 CHIEF COMPLAINT: Status post ground-level fall HISTORY OF PRESENT ILLNESS: The patient is an 79-year-old male who was brought in by EMS after being found down for unknown period time for questionable grou nd-level fall. He has baseline history of dementia. He is being followed by neurology. Patient also came in with acute kidney injury. He has baseline confusion. He has a guardian. Per description with nursing, no new complaints. Overall patient had global confusion improving per neurology. Separately, patient did fall per report while in the hospital from the chair. Patient is in the intensive care unit as MedSurg overflow. ROS: No reports of nausea and vomiting. No fevers or chills. PHYSICAL EXAM: VITAL SIGNS: Reviewed CONSTITUTIONAL: Well developed and in no acute distress. EYES: Conjuctivae without sclera icterus. Extraocular movements grossly intact. HEAD, EARS, NOSE, THROAT: Moist buccal mucosa. Hears conversational speech. No nasal drainage. Has abrasions along the left side of the cheek. NECK: Supple. No thyroidomegaly. RESPIRATORY: Non-labored respirations and equal bilateral excursions. CARDIOVASCULAR: Palpable 2+ radial pulses. ABDOMEN: Soft. No peritonitis. MUSCULOSKELETAL: No gross deformity of the lower extremities noted. No clubbing. No cyanosis. SKIN: Good skin turgor. Well perfused. NEUROLOGIC: Cranial nerves II through XII grossly intact. No focal or lateralizing signs. PSYCH: Flat affect. CLINICAL LABS: White blood cell count normal 7.4 down from 25.3. Platelets down from 137-88. Creatinine down from 2.86 to 0.55. ECHO: Ejection fraction 55-60%. No global hypokinesis. STUDIES: Ultrasound of carotids without any significant stenoses RADIOLOGY: Barium swallow study demonstrates singular episode of silent aspirati on. ASSESSMENT: 1. Status post ground-level fall 2. Encephalopathy, pre-existing 3. Acute tubular necrosis, improved PLAN: 1. At this time, management per nephrology, medicine, neurology. 2. No acute surgical intervention. 3. Dysphagia diet per dietary. 4. Will sign off. Please reconsult if needed Objective - Vital Signs Vital signs: Vital Signs Temp 101.4 F H 09/29/19 16:00 Pulse 82 09/29/19 16:00 Resp 18 09/29/19 16:00 BP 124/97 09/29/19 16:00 Pulse Ox 94 L 09/29/19 16:00 Intake & Output 09/29/19 09/29/19 09/30/19 06:59 18:59 06:59 Intake Total 2265 1900 Output Total 1265 490 100 Balance 1000 1410 -100 Weight 67.2 kg 67.2 kg Intake: IV 825 750 Sodium Chloride 0.45% 1, 825 750 000 ml @ 75 mls/hr IV . [id number] [facility] Rx#:[id number] Intake, IV Titration 200 Amount Potassium Chloride 10 meq 200 In Water For Injection 1 100ml.bag @ 100 mls/hr IVPB Q1HR [facility] Rx#: [id number] Oral 1440 950 Output: Urine 1265 490 100 Other: Voiding Method Indwelling Catheter Indwelling Catheter # Bowel Movements 1 - Labs CBC & Chem 7: 09/28/19 04:26 09/29/19 04:21 Labs: Abnormal Lab Results - Last 24 Hours (Table) 09/29/19 09/29/19 Range/Units 04:21 16:00 Potassium 3.3 L (3.5-5.1) mmol/L Chloride 118 H (98-107) mmol/L Creatinine 0.55 L (0.66-1.25) mg/dL Calcium 7.5 L (8.4-10.2) mg/dL Urine Protein Trace H (Negative) Urine Blood Moderate H (Negative) Ur Leukocyte Esterase Moderate H (Negative) Urine RBC >182 H (0-5) /hpf Urine WBC 31 H (0-5) /hpf Urine Bacteria Occasional H (None) /hpf Hyaline Casts 4 H (0-2) /lpf Urine Mucus Few H (None) /hpf Microbiology - Last 24 Hours (Table) 09/29/19 16:00 Urine Culture - Preliminary Urine,Voided 09/26/19 23:10 Blood Culture - Preliminary Blood No Growth after 48 hours Assessment and Plan (1) Encephalopathy, metabolic Current Visit: Yes Status: Acute Code(s): G93.41 - METABOLIC ENCEPHALOPATHY SNOMED Code(s): 72314307 (2) ARABELLA (acute kidney injury) Current Visit: Yes Status: Acute Code(s): N17.9 - ACUTE KIDNEY FAILURE, UNSPECIFIED SNOMED Code(s): 21673645 (3) Acute hyperkalemia Current Visit: Yes Status: Acute Code(s): E87.5 - HYPERKALEMIA SNOMED Code(s): 7112906 (4) Facial trauma Current Visit: Yes Status: Acute Code(s): S09.93XA - UNSPECIFIED INJURY OF FACE, INITIAL ENCOUNTER SNOMED Code(s): 569966230 (5) Fall Current Visit: Yes Status: Acute Code(s): W19.XXXA - UNSPECIFIED FALL, INITIAL ENCOUNTER SNOMED Code(s): 5609205 (6) Leukocytosis Current Visit: Yes Status: Acute Code(s): D72.829 - ELEVATED WHITE BLOOD CELL COUNT, UNSPECIFIED SNOMED Code(s): 586915049 (7) Rhabdomyolysis Current Visit: Yes Status: Acute Code(s): M62.82 - RHABDOMYOLYSIS SNOMED Code(s): 782830150
[2019-09-29] MEDS: TAMSULOSIN 0.4 MG CAP.ER.24H PO SCH (23:35)
[2019-09-29] MEDS: DONEPEZIL 10 MG TAB PO SCH (23:35)
[2019-09-30 05:54] LABS: HCT 38.3 % (39.0-53.0); HGB 13.1 gm/dL (13.0-17.5); MCH 30.7 pg (25.0-35.0); MCHC 34.2 g/dL (31.0-37.0); MCV 89.7 fL (80.0-100.0); Mean Platelet Volume 8.1; Platelet Count 100 k/uL (150-450); RBC 4.27 m/uL (4.30-5.90); RDW 12.6 % (11.5-15.5)
[2019-09-30 06:09] LABS: African American GFR (CKD) >90 (>60 ml/min/1.73 sqM); Anion Gap 3 mmol/L; Blood Urea Nitrogen 15 mg/dL (9-20); Calcium 7.4 mg/dL (8.4-10.2); Carbon Dioxide 22 mmol/L (22-30); Chloride 113 mmol/L (98-107); Glucose 93 mg/dL (74-99); Non-African American GFR(CKD) >90 (>60 ml/min/1.73 sqM); Sodium 138 mmol/L (137-145)
[2019-09-30 06:36] LABS: Potassium 3.9 mmol/L (3.5-5.1)
[2019-09-30] MEDS: HEPARIN SODIUM,PORCINE 5,000 UNIT/ML 1 ML VIAL SQ SCH ×2 (08:41→22:09)
[2019-09-30] MEDS: SODIUM CHLORIDE 0.45% 1,000 ML IV SCH (08:41)
[2019-09-30] MEDS: BACITRACIN 500 UNIT/GM OINT 28.4 GM TUBE TOPICAL SCH ×2 (08:41→22:18)
[2019-09-30] MEDS: OXYBUTYNIN CHLORIDE 5 MG TAB PO SCH ×2 (08:41→22:09)
[2019-09-30] MEDS: THIAMINE 100 MG TAB PO SCH (08:41)
[2019-09-30] MEDS: FAMOTIDINE 20 MG TAB PO SCH ×2 (08:41→22:08)
--- NOTE | 2019-09-30 11:24 | PN ---
PROGRESS NOTE Patient is seen for followup for acute kidney injury. His renal function is currently back to normal. Patient has been confused. He will be going to rehab today. He remains with a Hawk catheter. He is maintained on IV fluids which were decreased. Patient was given Seroquel last night. He is currently sleepy but arousable. On examination today, blood pressure is 143/77, heart rate 59 per minute, he is afebrile. Examination of the heart S1, S2. Examination of the lungs, bilateral breath sounds are heard. Abdomen is soft, nontender. Examination of the lower extremities shows no significant edema. 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 Patient is confused. He is moving all 4 extremities. LABS: Show sodium 138, potassium 3.9, chloride 113, CO2 is 22, BUN 15, creatinine 0.5. ASSESSMENT: 1. Acute kidney injury secondary to hypotension, hypoperfusion, ATN as well as urine retention, currently resolved. 2. Hypokalemia, status post replacement. 3. Metabolic acidosis, now resolved. 4. Mild hypernatremia maintained on half-normal saline, currently improved. 5. Status post fall with mild rhabdomyolysis, now improved. PLAN: Encourage increased oral intake as well as free water intake. The patient is stable for discharge from nephrology standpoint. MMODL / IJN: [id number] /
--- NOTE | 2019-09-30 13:38 | P.DS ---
Providers Date of admission: 09/26/19 23:38 Attending physician: Cheri Arias Consults: 09/26/19 23:37 Consult Physician Urgent Consulting Provider: Weston Menendez Consult Reason/Comments: melissa, rhabdo Do you want consulting provider notified?: Yes 09/27/19 00:22 Consult Physician Urgent Consulting Provider: Tisha Bonds Consult Reason/Comments: presumed fall, found down with prolonged downtime Do you want consulting provider notified?: Yes, Notify in am 09/27/19 09:44 Consult Physician Routine Consulting Provider: Zuleyma Garcia Consult Reason/Comments: possible parkinsons Do you want consulting provider notified?: Yes Primary care physician: Roque [facility] Hospital Course: 79-year-old admitted after a fall. Patient is being treated for acute renal failure patient the creatinine normalized to around 0.8 today patient's IV fluids are being changed to half-normal saline. Patient appears to have hypotension related possible syncope and hypotension related acute tubular necrosis. Patient was a valid by neurology patient does have some delirium patient probably has some baseline dementia and this delirium is secondary to hospitalization patient will be started onlow-dose Seroquel with close monitoring of QTpatient underwent stroke workup echocardiogram showed normal ejection fraction no significant valvular abnormalities carotid Doppler within normal limits EEG is consistent with the metabolic and toxic encephalopathy which is again secondary to acute renal failure. Patient will be transferred out of ICU to [facility] floor. 09/29/2019 Patient occasionally is confused and did fall last night. Patient has a sitter because of his fall although patient is presently confused patient is on Seroquel and as needed basis for agitation which helped him sleep last night. P atient had low-grade fever because of which obtained a septic workup with blood culture, urinalysis and urine culture chest x-ray 09/30/2019 Patient confusion significant improved but still be confused alert oriented 2 patient does have dementia. Etiology of 4 dementia is not clear probably senile or vascular. Patient had a low-grade fever probably because of atelectasis although I cannot completely rule out urinary tract infection as his urine is bit abnormal. Patient will be given prescription of Ceftin for 3 days. Patient will be discharged today PHYSICAL EXAMINATION: GENERAL: The patient is alert and oriented x2, confused delirious, not in any acute distress. Well developed, well nourished. HEENT: Pupils are round and equally reacting to light. EOMI. No scleral icterus. No conjunctival pallor. Multiple bruises all over the face and body. No pharyngeal erythema. No thyromegaly. CARDIOVASCULAR: S1 and S2 present. No murmurs, rubs, or gallops. PULMONARY: Chest is clear to auscultation, no wheezing or crackles. ABDOMEN: Soft, nontender, nondistended, normoactive bowel sounds. No palpable organomegaly. MUSCULOSKELETAL: No joint swelling or deformity. EXTREMITIES: No cyanosis, clubbing, or pedal edema. NEUROLOGICAL: Unable to assess please refer to neurology documentation SKIN: No rashes. Assessment and Plan Plan: -Acute renal failure: Most probably secondary to severe intravascular volume depletion dehydration, or acute purulent necrosis related to hypertension suspicion is low that patient has rhabdomyolysis and pigmentary injury to the tubules. nephrology evaluated the patient patient creatinine normalize. -Low-grade fever most probably due to atelectasis although I cannot completely rule out urinary tract infection because of above-mentioned reasons and patient will be discharged on 3 days of Ceftin -Elevated CK: Secondary to fall muscle injury CK is coming down -History of mild Parkinson's neurology evaluated the patient -Possible dementia senile or vascular dementia. -Gastroesophageal reflux disease - benign prostatic hypertrophy -Leukocytosis without any evidence of infection, leukocytosis improved -Elevated troponin no evidence of acute myocardial infarction elevation of troponin secondary to acute renal failure -Episodes of agitation due to sundowners which patient will be prescribed Seroquel on as-needed basis [facility] -Mildly elevated liver enzymes we'll repeat liver enzymes, it appeared to be nonspecific elevation, repeat your liver enzymes are within normal limits -Benign prostatic hypertrophy -Gastroesophageal reflux disease -Generalized deconditioning and fall, ruled out syncope and seizures patient is being discharged to subacute rehabilitation Patient Condition at Discharge: Serious Plan - Discharge Summary Discharge Rx Participant: No New Discharge Prescriptions: New Bacitracin Oint 1 applic TOPICAL BID applic QUEtiapine [SEROquel] 25 mg PO HS PRN #20 tab PRN Reason: Agitation Cefuroxime Axetil [Ceftin] 500 mg PO BID 3 Days #6 tab Continue Tamsulosin HCl [Flomax] 0.4 mg PO HS Oxybutynin Chloride [Ditropan] 5 mg PO BID Donepezil HCl [Aricept] 5 mg PO BID Discharge Medication List Tamsulosin HCl [Flomax] 0.4 mg PO HS 07/19/16 [History] Donepezil HCl [Aricept] 5 mg PO BID 09/27/19 [History] Oxybutynin Chloride [Ditropan] 5 mg PO BID 09/27/19 [History] Bacitracin Oint 1 applic TOPICAL BID applic 09/30/19 [Rx] Cefuroxime Axetil [Ceftin] 500 mg PO BID 3 Days #6 tab 09/30/19 [Rx] QUEtiapine [SEROquel] 25 mg PO HS PRN #20 tab 09/30/19 [Rx] Follow up Appointment(s)/Referral(s): Wily Nevarez MD [Primary Care Provider] - 3 Days Discharge Disposition: HOME WITH HOME HEALTH SERVICES
[2019-09-30] MEDS: TAMSULOSIN 0.4 MG CAP.ER.24H PO SCH (22:09)
[2019-09-30] MEDS: QUEtiapine 25 MG TAB PO PRN (22:09)
[2019-09-30] MEDS: DONEPEZIL 10 MG TAB PO SCH (22:09)
[2019-10-01] MEDS: THIAMINE 100 MG TAB PO SCH (08:53)
[2019-10-01] MEDS: BACITRACIN 500 UNIT/GM OINT 28.4 GM TUBE TOPICAL SCH (08:53)
[2019-10-01] MEDS: FAMOTIDINE 20 MG TAB PO SCH (08:53)
[2019-10-01] MEDS: OXYBUTYNIN CHLORIDE 5 MG TAB PO SCH (08:53)
[2019-10-01] MEDS: HEPARIN SODIUM,PORCINE 5,000 UNIT/ML 1 ML VIAL SQ SCH (08:53)
[2019-10-01 08:57] VITALS: PULSE 71; TEMP 98.7
[2019-10-01 09:08] VITALS: BP 114/68; RESP 18
--- NOTE | 2019-10-01 10:43 | P.DS ---
Providers Date of admission: 09/26/19 23:38 Expected date of discharge: 10/01/19 Attending physician: Cheri Arias Consults: 09/26/19 23:37 Consult Physician Urgent Consulting Provider: Weston Menendez Consult Reason/Comments: melissa, rhabdo Do you want consulting provider notified?: Yes 09/27/19 00:22 Consult Physician Urgent Consulting Provider: Tisha Bonds Consult Reason/Comments: presumed fall, found down with prolonged downtime Do you want consulting provider notified?: Yes, Notify in am 09/27/19 09:44 Consult Physician Routine Consulting Provider: Zuleyma Garcia Consult Reason/Comments: possible parkinsons Do you want consulting provider notified?: Yes Primary care physician: Roque Julien Hospital Course: 79-year-old admitted after a fall. Patient is being treated for acute renal failure patient the creatinine normalized to around 0.8 today patient's IV fluids are being changed to half-normal saline. Patient appears to have hypotension related possible syncope and hypotension related acute tubular necrosis. Patient was a valid by neurology patient does have some delirium patient probably has some baseline dementia and this delirium is secondary to hospitalization patient will be started onlow-dose Seroquel with close monitoring of QTpatient underwent stroke workup echocardiogram showed normal ejection fraction no significant valvular abnormalities carotid Doppler within normal limits EEG is consistent with the metabolic and toxic encephalopathy which is again secondary to acute renal failure. Patient will be transferred out of ICU to [facility] floor. 09/29/2019 Patient occasionally is confused and did fall last night. Patient has a sitter because of his fall although patient is presently confused patient is on Seroquel and as needed basis for agitation which helped him sleep last night. Patient had low-grade fever because of which obtained a septic workup with blood culture, urinalysis and urine culture chest x-ray 09/30/2019 Patient confusion significant improved but still be confused alert oriented 2 patient does have dementia. Etiology of 4 dementia is not clear probably senile or vascular. Patient had a low-grade fever probably because of atelectasis although I cannot completely rule out urinary tract infection as his urine is bit abnormal. Patient will be given prescription of Ceftin for 3 days. Patient will be discharged today 10/01/2019 Patient seen and evaluated today in follow-up and continues to be slightly confused although is alert and oriented 2. Patient does have a history of dementia most probably senile or vascular. Patient was not discharged yesterday as there was no accepting facility. Patient will be going to [facility] or [facility] today for continued PT/OT therapy. On exam vital signs are stable. Temp is 98.7F, pulse is 71, respirations are 18, blood pressure 114/68, pulse ox is 94% on room air. PHYSICAL EXAMINATION: GENERAL: The patient is alert and oriented x2, confused delirious, not in any acute distress. Well developed, well nourished. HEENT: Pupils are round and equally reacting to light. EOMI. No scleral icterus. No conjunctival pallor. Multiple bruises all over the face and body. No pharyngeal erythema. No thyromegaly. CARDIOVASCULAR: S1 and S2 present. No murmurs, rubs, or gallops. PULMONARY: Chest is clear to auscultation, no wheezing or crackles. ABDOMEN: Soft, nontender, nondistended, normoactive bowel sounds. No palpable organomegaly. MUSCULOSKELETAL: No joint swelling or deformity. EXTREMITIES: No cyanosis, clubbing, or pedal edema. NEUROLOGICAL: Unable to assess please refer to neurology documentation SKIN: No rashes. Bruising and facial abrasions noted. Assessment and Plan Plan: -Acute renal failure: Most probably secondary to severe intravascular volume depletion dehydration, or acute purulent necrosis related to hypertension suspicion is low that patient has rhabdomyolysis and pigmentary injury to the tubules. nephrology evaluated the patient patient creatinine normalize. -Low-grade fever most probably due to atelectasis although I cannot completely rule out urinary tract infection because of above-mentioned reasons and patient will be discharged on 3 days of Ceftin -Elevated CK: Secondary to fall muscle injury CK is coming down -History of mild Parkinson's neurology evaluated the patient -Possible dementia senile or vascular dementia. -Gastroesophageal reflux disease - benign prostatic hypertrophy -Leukocytosis without any evidence of infection, leukocytosis improved -Elevated troponin no evidence of acute myocardial infarction elevation of troponin secondary to acute renal failure -Episodes of agitation due to owners which patient will be prescribed Seroqu el on as-needed basis to use [facility] the [facility] -Mildly elevated liver enzymes we'll repeat liver enzymes, it appeared to be nonspecific elevation, repeat your liver enzymes are within normal limits -Benign prostatic hypertrophy -Gastroesophageal reflux disease -Generalized deconditioning and fall, ruled out syncope and seizures patient is being discharged to subacute rehabilitation Patient Condition at Discharge: Stable Plan - Discharge Summary Discharge Rx Participant: No New Discharge Prescriptions: New Bacitracin Oint 1 applic TOPICAL BID applic QUEtiapine [SEROquel] 25 mg PO HS PRN #20 tab PRN Reason: Agitation Cefuroxime Axetil [Ceftin] 500 mg PO BID 3 Days #6 tab Thiamine [Vitamin B-1] 100 mg PO DAILY tab Continue Tamsulosin HCl [Flomax] 0.4 mg PO HS Oxybutynin Chloride [Ditropan] 5 mg PO BID Donepezil HCl [Aricept] 5 mg PO BID Discharge Medication List Tamsulosin HCl [Flomax] 0.4 mg PO HS 07/19/16 [History] Donepezil HCl [Aricept] 5 mg PO BID 09/27/19 [History] Oxybutynin Chloride [Ditropan] 5 mg PO BID 09/27/19 [History] Bacitracin Oint 1 applic TOPICAL BID applic 09/30/19 [Rx] Cefuroxime Axetil [Ceftin] 500 mg PO BID 3 Days #6 tab 09/30/19 [Rx] QUEtiapine [SEROquel] 25 mg PO HS PRN #20 tab 09/30/19 [Rx] Thiamine [Vitamin B-1] 100 mg PO DAILY tab 10/01/19 [Rx] Follow up Appointment(s)/Referral(s): Wily Nevarez MD [Primary Care Provider] - 3 Days Activity/Diet/Wound Care/Special Instructions: May keep arredondo catheter in for transport, remove at rehab facility on arrival. activity as tolerated continue current dysphasia 3 chopped nectar thickened liquids, one-to-one supervision, aspiration precautions , no straws Follow-up with primary care provider upon discharge Continue working with PT/OT therapy Discharge Disposition: HOME WITH HOME HEALTH SERVICES
--- NOTE | 2019-10-01 11:19 | PN ---
PROGRESS NOTE Patient is seen for followup for acute kidney injury. His renal function has resolved. He was hypokalemic yesterday. His potassium has been replaced. We have plans to discharge him to a rehab facility today. PHYSICAL EXAMINATION: On examination, patient is comfortable. Blood pressure is 114/68, heart rate 71 per minute, he is afebrile. Examination of the heart, S1, S2. Examination of the lungs, bilateral breath sounds are heard. Abdomen is soft, nontender. Examination of the lower extremities shows no significant edema. 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 LABS: Show sodium 138, potassium 3.9, chloride 113, CO2 is 22, BUN 16, creatinine 0.5, hemoglobin 13.1 g/dL. ASSESSMENT: 1. Acute kidney injury, ATN currently resolved. 2. Hypokalemia, status post replacement. 3. Mild hyponatremia, now resolved. 4. Metabolic acidosis, currently resolved. 5. Status post fall with mild rhabdomyolysis, now improved. PLAN: Patient is stable for discharge from nephrology standpoint. Encourage increased oral intake. Avoid nonsteroidal anti-inflammatory agents post discharge. MMODL / IJN: [id number] /
[2019-10-01 11:20] VITALS: BMI 23.4
== END 2019-10-01 13:52 | DRG 682 ==
LOC: EEVIPCON 21:42 → EC 21:42 → 2SICU 23:38
PROVIDERS: ADMIT Hospitalist; ATTEND Hospitalist
DX: N17.0 Acute kidney failure with tubular necrosis (principal); G92 Toxic encephalopathy; E87.0 Hyperosmolality and hypernatremia; E87.1 Hypo-osmolality and hyponatremia; E87.2 Acidosis; F05 Delirium due to known physiological condition; J98.11 Atelectasis; M62.82 Rhabdomyolysis; N39.0 Urinary tract infection, site not specified; E86.0 Dehydration; E86.1 Hypovolemia; E87.5 Hyperkalemia; E87.6 Hypokalemia; F01.50 Vascular dementia, unspecified severity, without behavioral disturbance, psychotic disturbance, mood disturbance, and anxiety; G20 Parkinson's disease; I10 Essential (primary) hypertension; I44.4 Left anterior fascicular block; K21.9 Gastro-esophageal reflux disease without esophagitis; L89.209 Pressure ulcer of unspecified hip, unspecified stage; L89.812 Pressure ulcer of head, stage 2; L89.892 Pressure ulcer of other site, stage 2; N28.1 Cyst of kidney, acquired; N40.1 Benign prostatic hyperplasia with lower urinary tract symptoms; Z11.59 Encounter for screening for other viral diseases; R33.8 Other retention of urine; R13.10 Dysphagia, unspecified; W06.XXXA Fall from bed, initial encounter; Y92.009 Unspecified place in unspecified non-institutional (private) residence as the place of occurrence of the external cause; S00.83XA Contusion of other part of head, initial encounter; T14.8XXA Other injury of unspecified body region, initial encounter; Z80.1 Family history of malignant neoplasm of trachea, bronchus and lung; Z87.11 Personal history of peptic ulcer disease; Z87.891 Personal history of nicotine dependence; Z96.651 Presence of right artificial knee joint; R47.81 Slurred speech; R79.89 Other specified abnormal findings of blood chemistry; R45.1 Restlessness and agitation; D72.829 Elevated white blood cell count, unspecified; R94.5 Abnormal results of liver function studies; M19.90 Unspecified osteoarthritis, unspecified site
CPT/HCPCS: 36415; 51701; 70450; 70486; 71045; 71046; 72125; 72170; 74230; 76770; 80048; 80053; 81001; 82550; 82607; 82746; 84443; 84484; 85025; 85027; 85610; 85730; 87040; 87086; 93005; 93306; 93880; 95816; 96361; 96365; 96375; 99285

== ENCOUNTER → 2020-10-04 | Outpatient (CLI) | payer MEDICARE ==
--- NOTE | 2020-10-05 07:49 | NM ---
EXAMINATION TYPE: NM bone scan whole body DATE OF EXAM: 10/04/2020 COMPARISON: NONE HISTORY: Radiculopathy. History of compression fracture of L4 Delayed whole-body scanning was performed following the injection of 22.4 mCi Tc 99m MDP. Images acq uired 3 hours post injection. FINDINGS: There is increased radiotracer activity seen at the L3 or L4 level and within the right posterolatera l 10th, 11th and 12th ribs. Increased radiotracer uptake in the right wrist and bilateral feet are most likely due to degenerativ e changes. Increased radiotracer uptake at the T11 and T12 vertebral costal junctions may be due to d egenerative changes. IMPRESSION: There is increased radiotracer activity seen at the L3 or L4 level and within the right posterolatera l 10th, 11th and 12th ribs. Please correlate with plain radiograph imaging. These may represent post traumatic changes and clinical correlation is recommended. Neoplasm cannot be definitely excluded.
== END | disposition home or self-care (01) ==
LOC: RADNMMAIN 11:33
PROVIDERS: ATTEND Physical Medicine & Rehabilitation
DX: M54.16 Radiculopathy, lumbar region (principal)
CPT/HCPCS: 78306; A9503

== ENCOUNTER → 2020-12-14 | Outpatient (CLI) | payer MEDICARE ==
--- NOTE | 2020-12-15 04:10 | MR ---
EXAMINATION TYPE: MR brain wo/w con DATE OF EXAM: 12/14/2020 COMPARISON: None HISTORY: Memory loss, evaluate for Parkinsons/dementia. CONTRAST: Standard multiplanar, multisequence MRI departmental protocol utilizing 6 mL intravenous Gadavist vanessa olinium contrast. Exam performed without and with IV contrast. There is cerebral cortical atrophy. There is no mass effect nor midline shift. There is no sign of in tracranial hemorrhage. There is diffuse cerebral atrophy. There is enlargement of the ventricles. Dif fusion images show no definite acute infarct. T2 and FLAIR images show increased linear signal in the periventricular white matter adjacent to the ventricles that could be manifestation of the hydrocephalus. The brainstem is intact. There is some e thmoid sinus mucosal thickening. The sella turcica is normal. There is some mild thinning of the erich us callosum. There is no evidence of orbital mass. Contrast images show no pathologic enhancement. There is normal enhancement of the venous sinuses. IMPRESSION: Cerebral atrophy and hydrocephalus. White matter changes consistent with hydrocephalus. No evidence o f focal cerebral cortical infarct.
== END | disposition home or self-care (01) ==
LOC: RADMRIMAIN 16:42
PROVIDERS: ATTEND Psychiatry & Neurology Neurology
DX: G91.9 Hydrocephalus, unspecified (principal); G31.9 Degenerative disease of nervous system, unspecified
CPT/HCPCS: 70553; A9585

== ENCOUNTER → 2021-01-29 | Outpatient (CLI) | payer MEDICARE ==
--- NOTE | 2021-01-29 16:31 | US ---
EXAMINATION TYPE: US kidneys/renal and bladder DATE OF EXAM: 01/29/2021 COMPARISON: Prior renal ultrasound September 27, 2019. Same day abdominal x-ray. CLINICAL HISTORY: R31.9 Hematuria. microscopic hematuria EXAM MEASUREMENTS: Right Kidney: 9.8 x 4.6 x 4.1 cm Left Kidney: 9.5 x 5.1 x 4.5 cm Right Kidney: lower pole obscured by overlying bowel content. cystic area = 1.1 x 1.1 x 1.0cm Left Kidney: cystic area = 1.3 x 1.2 x 1.1cm Bladder: possible stone posteriorly = 1.9 x 3.5cm Bilateral Jets seen: no There is no evidence for hydronephrosis at this point in time. When scanning right kidney adjacent li roshan heterogeneously hyperechoic suggesting diffuse fatty infiltration. No nephrolithiasis is seen. T here is 1.2 cm benign-appearing thin-walled cyst lower pole of the left kidney. The urinary bladder is not greatly distended. Prominent prostate bulging on bladder base is noted on 2017 prostate ultra sound less well seen today. Bilateral ureteral jets are not seen. Large shadowing calculus suspected correlates with same day abdominal x-ray measuring 3.5 cm long axis though I cannot explain vasculari ty. IMPRESSION: Large 3.5 cm intraluminal calculus within bladder suspected. Consider cystoscopy to kwan valentin
--- NOTE | 2021-01-29 16:33 | XR ---
EXAMINATION TYPE: XR KUB DATE OF EXAM: 01/29/2021 4:26 PM CLINICAL HISTORY: Microscopic hematuria TECHNIQUE: Two supine KUB images of the abdomen are obtained. COMPARISON: None. FINDINGS: Scattered gas is seen in non-distended small bowel loops. Gas and fecal material is seen in non-distended colon. There is oval 4.3 cm calcification projecting over the lower central pelvis fel t to reflect large bladder calculus. Moderate multilevel spurring and disc space narrowing in the tho racolumbar spine. Lung bases are grossly clear. IMPRESSION: As above.
== END | disposition home or self-care (01) ==
LOC: EEVIPCON 15:40 → RADUSWWP 15:40
PROVIDERS: ATTEND Urology
DX: N28.89 Other specified disorders of kidney and ureter (principal); N28.1 Cyst of kidney, acquired
CPT/HCPCS: 74018; 76770

== ENCOUNTER → 2021-02-26 | Outpatient (CLI) | payer MEDICARE ==
[2021-02-26 13:06] LABS: ALT 30 U/L (4-49); AST 32 U/L (17-59); African American GFR (CKD) >90 (>60 ml/min/1.73 sqM); Albumin 3.9 g/dL (3.5-5.0); Alkaline Phosphatase 101 U/L (38-126); Anion Gap 7 mmol/L; Blood Urea Nitrogen 21 mg/dL (9-20); Calcium 9.5 mg/dL (8.4-10.2); Carbon Dioxide 27 mmol/L (22-30); Chloride 104 mmol/L (98-107); Glucose 101 mg/dL (74-99); Non-African American GFR(CKD) 85 (>60 ml/min/1.73 sqM); Potassium 4.3 mmol/L (3.5-5.1); Sodium 138 mmol/L (137-145); Total Bilirubin 0.5 mg/dL (0.2-1.3); Total Protein 6.8 g/dL (6.3-8.2)
[2021-02-26 13:17] LABS: Appearance,Urine Cloudy (Clear); Bacteria,Urine Rare /hpf; Bilirubin,Urine Negative (Negative); Blood,Urine Large (Negative); Color,Urine Yellow; Glucose,Urine (UA) Negative (Negative); Ketones,Urine Negative (Negative); Leukocyte Esterase,Urine Large (Negative); Mucus,Urine Rare /hpf; Nitrite,Urine Negative (Negative); Protein,Urine 1+ (Negative); RBC,Urine 130 /hpf (0-5); Specific Gravity,Urine 1.019 (1.001-1.035); Squamous Epithelial Cell,Urine <1 /hpf (0-4); Urobilinogen,Urine <2.0 mg/dL (<2.0); WBC,Urine >182 /hpf (0-5)
[2021-02-26 14:09] LABS: Basophils % (A) 0 %; Eosinophils # (A) 0.2 k/uL (0-0.7); Eosinophils % (A) 2 %; HCT 42.3 % (39.0-53.0); HGB 14.8 gm/dL (13.0-17.5); Lymphocytes # (A) 0.9 k/uL (1.0-4.8); Lymphocytes % (A) 12 %; MCH 30.5 pg (25.0-35.0); MCV 87.2 fL (80.0-100.0); Mean Platelet Volume 7.3; Monocytes # (A) 0.4 k/uL (0-1.0); Monocytes % (A) 6 %; Neutrophils # (A) 5.8 k/uL (1.3-7.7); Neutrophils % (A) 79 %; Platelet Count 218 k/uL (150-450); RBC 4.85 m/uL (4.30-5.90); RDW 13.6 % (11.5-15.5); WBC 7.4 k/uL (3.8-10.6)
== END | disposition home or self-care (01) ==
LOC: LABPAT 11:26
PROVIDERS: ATTEND Orthopaedic Surgery Sports Medicine
DX: Z01.812 Encounter for preprocedural laboratory examination (principal); N21.9 Calculus of lower urinary tract, unspecified
CPT/HCPCS: 80053; 81001; 85025; 87086

== ENCOUNTER 2021-03-07 08:19 | Day surgery (SDC) | payer MEDICARE ==
[2021-03-05 13:46] VITALS: BMI 24.7
--- NOTE | 2021-03-06 18:10 | P.GSHP ---
History of Present Illness H&P Date: 03/06/21 80 yo male with recurrent uti with hematuria secondary to stones in the bladder. He comes for a cysto lithotripsy. - Constitutional Constitutional: Denies chills, Denies fever - EENT Eyes: denies blurred vision, denies pain Ears, nose, mouth and throat: Denies headache, Denies sore throat - Cardiovascular Cardiovascular: Denies chest pain, Denies shortness of breath - Respiratory Respiratory: Denies cough, Denies 7 - Gastrointestinal Gastrointestinal: Denies abdominal pain, Denies diarrhea, Denies nausea, Denies vomiting - Genitourinary (Female) Genitourinary: Denies dysuria, Denies hematuria - Genitourinary (Male) Genitourinary: Denies dysuria, Denies hematuria - Musculoskeletal Musculoskeletal: Denies myalgias - Integumentary Integumentary: Denies pruritus, Denies rash - Neurological Neurological: Denies numbness, Denies weakness - Psychiatric Psychiatric: Denies anxiety, Denies depression - Endocrine Endocrine: Denies fatigue, Denies weight change Past Medical History Past Medical History: Dementia, GERD/Reflux, Osteoarthritis (OA), Prostate Disorder Additional Past Medical History / Comment(s): Kidney stones History of Any Multi-Drug Resistant Organisms: None Reported Past Surgical History: Joint Replacement Additional Past Surgical History / Comment(s): bilateral knee replacement. esophageal ulcer surgery Past Anesthesia/Blood Transfusion Reactions: No Reported Reaction Additional Psychological History / Comment(s): Dementia Smoking Status: Former smoker Past Alcohol Use History: None Reported Past Drug Use History: None Reported - Past Family History Mother Family Medical History: Cancer Father Family Medical History: Cancer Additional Family Medical History / Comment(s): LUNG CANCER Brother(s) Family Medical History: Cancer Additional Family Medical History / Comment(s): LUNG CANCER Medications and Allergies Home Medications Medication Instructions Recorded Confirmed Type Tamsulosin HCl [Flomax] 2 tab PO HS 07/19/16 03/05/21 History Donepezil HCl [Aricept] 10 mg PO QAM 09/27/19 03/05/21 History Cholecalciferol [Vitamin D3 (25 50 mcg PO DAILY 03/05/21 03/05/21 History Mcg = 1000 Iu)] Multivitamins, Thera [Multivitamin 1 tab PO DAILY 03/05/21 03/05/21 History (formulary)] Allergies Allergy/AdvReac Type Severity Reaction Status Date / Time No Known Allergies Allergy Verified 03/05/21 13:34 Surgical - Exam - General well developed, well nourished - Eyes PERRL - ENT no hearing loss - Neck no masses - Respiratory normal expansion, normal respiratory effort - Cardiovascular Rhythm: regular - Abdomen Abdomen: soft, non tender - Genitourinary normal penis with no external lesions, testicles present - Neurologic normal sensation - Musculoskeletal normal posture - Psychiatric oriented to person, oriented to place, speech is normal Assessment and Plan Assessment: Impression: bladder stone causing recurring hematuria,uti Plan: cystolithotripsy
[~2021-03-07 08:19] MED LIST changes: -ACETAMINOPHEN TAB 500 MG TAB PO ONE; +AMPICILLIN 1,000 MG in SODIUM CHLORIDE 0.9% 50 ML IVPB PRN; -DEXAMETHASONE SOD PHOSPHATE 10 MG/ML 1 ML VIAL IV ONE; +DEXAMETHASONE SOD PHOSPHATE 4 MG/ML 1 ML VIAL IV ONE; +GENTAMICIN 80 MG in SODIUM CHLORIDE 0.9% 100 ML IVPB PRN; +LACTATED RINGERS 1,000 ML IV SCH; +LIDOCAINE 1% (10MG/ML) FOR IV START INTRADERMA PRN; -MELOXICAM 7.5 MG TAB PO ONE; -MIDAZOLAM 2 MG/2 ML VIAL IV PRN; -TRANEXAMIC ACID 1,000 MG in SODIUM CHLORIDE 0.9% 50 ML IVPB ONE; -ceFAZolin IN SWFI 2 GM/20 ML SYRINGE IVP ONE
--- NOTE | 2021-03-07 09:06 | XR ---
EXAMINATION TYPE: XR KUB DATE OF EXAM: 03/07/2021 COMPARISON: 01/29/2021 HISTORY: Bladder calculus TECHNIQUE: One view abdominal series FINDINGS: The osseous structures are intact. The bowel gas pattern is nonspecific. Degenerative change of the spine. 3.4 cm bladder calculus is again noted. Arthropathy of the hips. Chronic rib deformities noted . IMPRESSION: 1. Stable bladder calculus.
[2021-03-07] MEDS ORDERED: .fentaNYL (PF) 50 MCG/ML 2 ML AMP ONE (10:04)
[2021-03-07] MEDS ORDERED: LIDOCAINE 1% INJ 10MG/ML (20 ML MDV) ONE (10:04)
[2021-03-07] MEDS ORDERED: PROPOFOL 10 MG/ML 20 ML VIAL IV ONE (10:04)
[2021-03-07] MEDS ORDERED: ePHEDrine 50 MG/ML 1 ML AMP ONE (10:04)
[2021-03-07] MEDS ORDERED: SUCCINYLCHOLINE CHLORIDE 100 MG/5 ML SYR IV ONE (10:04)
--- NOTE | 2021-03-07 11:30 | P.OP ---
Date of Procedure: 03/07/21 Preoperative Diagnosis: Bladder stone large (greater than 3 cm) Postoperative Diagnosis: Same Procedure(s) Performed: Cystoscopy lithotripsy (large) Anesthesia: LUCAA Surgeon: Jason Robels Estimated Blood Loss (ml): 100 Pathology: other (Stone) Condition: stable Disposition: PACU Indications for Procedure: Patient is 80. He has had recurrent urinary infections and blood in the urine. He is found to have a 3-4 cm stone in the bladder. He comes for cystoscopy lithotripsy has no upper tract stones Description of Procedure: Patient is brought to the operating suite. He is given a general anesthetic. He's placed lithotomy position with sterile prep and drape. Under direct vision the 17.5-[place] scope with Foroblique lenses introduced in urethra is normal the prostate shows trilobar obstruction. The bladder is inspected and there is heavy trabeculation and edema. There is a large stone on the floor the bladder. With 1000 laser probe and 30 W of energy the stone was broken into tiny pieces and flushed out of the bladder. Then the procedure other than edema and some erythema there is no remaining stone. A Hawk catheters placed because I'm concerned of urine retention postoperatively due to the large prostate in the edema from the cystoscopy lithotripsy. The patient's awake and returned recovery in good condition. Tell her procedure well be discharged home upon recovery with indwelling catheter and found the office for catheter removal.
[2021-03-07 11:41] VITALS: TEMP 97.9
[2021-03-07 12:16] VITALS: PULSE 66
[2021-03-07 12:19] VITALS: BP 153/78; RESP 18
== END 2021-03-07 13:26 | disposition home or self-care (01) ==
LOC: OR 08:19
PROVIDERS: ATTEND Urology
DX: N21.0 Calculus in bladder (principal); K21.9 Gastro-esophageal reflux disease without esophagitis; F03.90 Unspecified dementia, unspecified severity, without behavioral disturbance, psychotic disturbance, mood disturbance, and anxiety; M19.90 Unspecified osteoarthritis, unspecified site; Z87.442 Personal history of urinary calculi; Z87.891 Personal history of nicotine dependence; Z79.899 Other long term (current) drug therapy
CPT/HCPCS: 82365; 74018; 52318; C1769; J1100; J2405; J2001; J3010; J1580; J0290; J0330; J2704

== ENCOUNTER → 2023-09-19 | Outpatient (CLI) | payer MEDICARE ==
--- NOTE | 2023-09-19 12:13 | MR ---
EXAMINATION TYPE: MR brain wo/w con DATE OF EXAM: 09/19/2023 11:37 AM CLINICAL INDICATION:Male, 83 years old with history of F03.90 UNSP DEMENTIA, UNSP SEVERITY; G20.C Par kins; PHH, Dementia, Parkinson. COMPARISON: 12/14/2020 TECHNIQUE: Multi planar, multi sequence imaging was performed through the brain including: T1, T2, In version recovery, susceptibility weighted imaging and gradient echo imaging and Diffusion weighted im aging. The patient was then given intravenous contrast and multi planar, T1 fat-saturation images wer e obtained. IV Contrast: 6 cc Gadavist FINDINGS: Moderate cerebral atrophy with proportional dilation of ventricular system. Diffusion-weighted imagi ng shows no evidence of restricted diffusion to suggest acute/subacute infarct. Intracranial arterial flow voids are maintained. Midline structures show no abnormality. Scattered foci of high T2 signal intensity are seen within the periventricular white matter. The susceptibility weighted images do not reveal any evidence for micro-hemorrhage. After administration of gadolinium, no abnormal enhancemen t is seen. The bone marrow signal is within normal limits. Paranasal sinuses and mastoid air cells: No significant paranasal sinus disease. Visualized orbits: Bilateral aphakia IMPRESSION: 1. No evidence of intracranial mass, acute/subacute infarct, or abnormal enhancement. 2. Similar Nonspecific white matter changes, likely related to small vessel ischemic disease.
== END | disposition home or self-care (01) ==
LOC: RADMRIMAIN 09:52
PROVIDERS: ATTEND Psychiatry & Neurology Neurology
DX: F03.90 Unspecified dementia, unspecified severity, without behavioral disturbance, psychotic disturbance, mood disturbance, and anxiety (principal); G20.A1 Parkinson's disease without dyskinesia, without mention of fluctuations; R90.82 White matter disease, unspecified
CPT/HCPCS: 70553; A9585

== ENCOUNTER → 2023-09-19 | Outpatient (CLI) | payer MEDICARE ==
[2023-09-19 17:38] LABS: BUN/Creat Ratio 35.33 Ratio (12.00-20.00); Blood Urea Nitrogen 31.8 mg/dL (9.0-27.0); Carbon Dioxide 25.9 mmol/L (21.6-31.8); Chloride 111 mmol/L (96-109); Glucose 65 mg/dL (70-110); Potassium 4.9 mmol/L (3.5-5.5); Sodium 146 mmol/L (135-145)
== END | disposition home or self-care (01) ==
LOC: LABWHC1 11:32
PROVIDERS: ATTEND Internal Medicine
DX: E87.8 Other disorders of electrolyte and fluid balance, not elsewhere classified (principal)
CPT/HCPCS: 36415; 80048